=== PATIENT | female | born 1970 | race Caucasian/White ===

== ENCOUNTER 2023-07-24 09:37 | Emergency (ER) | payer OTHER, SELFPAY ==
[2023-07-24] VITALS (10 sets, daily range): BP systolic 85–148; BP diastolic 49–91
--- NOTE | 2023-07-24 09:38 | ED.GENMED ---
History of Present Illness
<Deric Fournier PA-C - Last Filed: 07/24/23 17:36>
General
Chief Complaint: Change in Mental Status
Time Seen by Provider: 07/24/23 09:38
History of Present Illness
History of Present Illness:
53 yo female w/ hx of stroke w/ R hemiparesis, seizures, HTN and HIV + presents via EMS from [facility] for evaluation of altered mental status. Per nursing facility staff the patient was noted to 'clench her jaw' and was minimally responsive
for period of time, no obvious tonic-clonic seizure activity, upon resolution of the symptoms her mental status drastically changed and she became agitated and violent. She was given 2 mg of Ativan and EMS was called. Upon arrival of EMS patient
remained agitated, attempting to hit and kick staff members. Patient was restrained forcibly by EMS in order to provide medical care and transport. Prehospital Accu-Chek was 114. Her vital signs were normal. On arrival to the emergency
department patient is calm, answers with nonsensical speech which is apparently her baseline from prior stroke. EMS notes that 2 vape cartridges were found in the patient's bed
Past History
<Deric Fournier PA-C - Last Filed: 07/24/23 17:36>
Past History
ED Past Medical History: CVA, HTN, Seizures and Other (HIV)
ED Past Surgical History: Cardiac (pacer)
Social History
Tobacco: Non-smoker
Alcohol: None
Drug: None
Living: [facility]
Review of Systems
<Deric Fournier PA-C - Last Filed: 07/24/23 17:36>
Review of Systems
Allergies reviewed?: Yes
All Other Systems: ROS reviewed and negative except as documented in HPI and ROS
Phy Exam
<Deric Fournier PA-C - Last Filed: 07/24/23 17:36>
Physical Exam
Physical Exam:
GEN: Well appearing, NAD, WDWN
HEENT: Oral mucosa moist, no scleral icterus, pupils dilated but reactive symmetrically, does not follow commands or extraocular motion
Cardiac: Regular rate
Lung: No respiratory distress, no tachypnea
MSK: No gross deformity or injuries
Skin: Good color, no pallor or jaundice, no rashes
Neuro: Alert, baseline aphasia, answers questions with 'yup', right hemiparesis, freely moves the left arm and left leg
Psych: Calm, cooperative
Course
<Deric Fournier PA-C - Last Filed: 07/24/23 17:36>
Orders/Labs/Results
Orders:
Orders
07/24/23 10:09
Complete Blood Count/With Diff Urgent
Keppra (Levetiracetam) [S] Urgent
07/24/23 10:46
Comprehensive Metabolic Panel Urgent
Lipase Urgent
Comment: ADD-ON
07/24/23 11:40
Lorazepam [Ativan] 2 mg .ROUTE .STK-MED ONE
07/24/23 11:42
Lorazepam [Ativan] 2 mg IV NOW STA
07/24/23 11:50
Straight Cath As Directed
Frequency: One time now
07/24/23 11:52
Urinalysis Reflex To Culture Urgent
Date Specimen was Collected: 07/24/23
Time Specimen was Collected: 11:49
07/24/23 12:09
CT Head W/o Iv Contrast Urgent
Comment:
Reason For Exam: altered mental status
07/24/23 15:42
Add On- LAB Urgent
Tests Added?: lipase
CT Abd/Pel (IV only)-DH only Urgent
Comment:
Reason For Exam: vomiting
Ondansetron Injectable [Zofran] 4 mg IV NOW STA
07/24/23 16:18
Lorazepam [Ativan] 1 mg IV NOW STA
Abnormal Lab Results
07/24/23 07/24/23
10:09 10:46
RBC 3.77 L 10^6/uL
(4.20-5.40)
Hct 35.5 L %
(37.0-47.0)
MCH 34.0 H pg
(27.0-31.0)
MPV 12.0 H fL
(7.4-10.4)
Chloride 111 H mmol/L
(98-107)
07/24/23 10:09
07/24/23 10:46
Vital Signs
Initial and Last Documented VS:
Initial Vital Signs
Temp Pulse Resp BP Pulse Ox
97.4 F 66 18 148/88 100
07/24/23 10:02 07/24/23 10:02 07/24/23 10:02 07/24/23 10:02 07/24/23 10:02
Last Documented Vital Signs
Temp Pulse Resp BP Pulse Ox
97.4 F 74 13 137/90 99
07/24/23 10:02 07/24/23 17:15 07/24/23 10:11 07/24/23 17:06 07/24/23 16:29
<Lydia Pittman MD - Last Filed: 07/24/23 13:13>
Orders/Labs/Results
Orders:
Orders
07/24/23 10:09
Complete Blood Count/With Diff Urgent
Keppra (Levetiracetam) [S] Urgent
07/24/23 10:46
Comprehensive Metabolic Panel Urgent
Lipase Urgent
Comment: ADD-ON
07/24/23 11:40
Lorazepam [Ativan] 2 mg .ROUTE .STK-MED ONE
07/24/23 11:42
Lorazepam [Ativan] 2 mg IV NOW STA
07/24/23 11:50
Straight Cath As Directed
Frequency: One time now
07/24/23 11:52
Urinalysis Reflex To Culture Urgent
Date Specimen was Collected: 07/24/23
Time Specimen was Collected: 11:49
07/24/23 12:09
CT Head W/o Iv Contrast Urgent
Comment:
Reason For Exam: altered mental status
07/24/23 15:42
Add On- LAB Urgent
Tests Added?: lipase
CT Abd/Pel (IV only)-DH only Urgent
Comment:
Reason For Exam: vomiting
Ondansetron Injectable [Zofran] 4 mg IV NOW STA
07/24/23 16:18
Lorazepam [Ativan] 1 mg IV NOW STA
Abnormal Lab Results
07/24/23 07/24/23
10:09 10:46
RBC 3.77 L 10^6/uL
(4.20-5.40)
Hct 35.5 L %
(37.0-47.0)
MCH 34.0 H pg
(27.0-31.0)
MPV 12.0 H fL
(7.4-10.4)
Chloride 111 H mmol/L
(98-107)
07/24/23 10:09
07/24/23 10:46
Vital Signs
Initial and Last Documented VS:
Initial Vital Signs
Temp Pulse Resp BP Pulse Ox
97.4 F 66 18 148/88 100
07/24/23 10:02 07/24/23 10:02 07/24/23 10:02 07/24/23 10:02 07/24/23 10:02
Last Documented Vital Signs
Temp Pulse Resp BP Pulse Ox
97.4 F 74 13 137/90 99
07/24/23 10:02 07/24/23 17:15 07/24/23 10:11 07/24/23 17:06 07/24/23 16:29
<Deric Fournier PA-C - Last Filed: 07/24/23 17:36>
*Critical Care Note
Total Time (30-74mins, 75-104mins- exclusive of procedures): Not Applicable
<Deric Fournier PA-C - Last Filed: 07/24/23 17:36>
Update Note
Update Note:
1431: Patient's workup was grossly unremarkable, she remains asleep and has not had any further agitation episodes. Awaiting discharge back to nursing facility. Remains possible that the initial event from this morning was triggered by a seizure,
EMS had noted they found vape cartridges in the patient's bed which could have provoked a seizure, patient is unable to indicate whether or not she had utilized any illicit substances.
1600: Patient has been essentially cooperative throughout the duration of the ER visit however at this point abruptly agitated, ambulating about the room and unable to be redirected. She did have an episode of bilious vomiting associated with this
as well. To this point I have not noted any breakthrough seizure symptoms whatsoever. Given the vomiting and the patient's inability to give appropriate history due to baseline aphasia will obtain a CT of the abdomen pelvis. She is given a
milligram of Ativan in order to facilitate remainder of workup.
1723: Patient resting comfortably, vital signs normal, awaiting CT scan read
1738: CT report unremarkable. Patient remains stable. Awaiting transport back to nursing facility
ED Attending Note
<Deric Fournier PA-C - Last Filed: 07/24/23 17:36>
-
Portions of this chart may have been created with voice recognition software.� Occasional wrong word or��sound alike� substitutions may have occurred due to the inherent limitations of voice recognition software.
<Lydia Pittman MD - Last Filed: 07/24/23 13:13>
ED Attending Note
Patient seen and examined by attending physician: Yes
I performed the substantive portion of visit, reviewed & personally made and approve the management plan that is documented in note by myself or BRIDGET.: Yes
ED Attending Note:
Patient is resting comfortably. Her abdomen is soft throughout. Her lungs are clear. She has had no fever or vomiting in the ED. There is no sign of urinary tract infection. There is no clinical sign of pneumonia. There are no significant
metabolic abnormalities.
Discharge Plan
Departure
Patient Disposition: Halfway/SNF
Date of Disposition: 07/24/23
Time of Disposition: 13:09
Discharge Problem:
Agitation
Instructions: Altered Mental Status (DC)
Prescriptions:
No Action
multivitamin Tablet
1 tab PO DAILY
acetaminophen 325 mg Tablet
650 mg PO Q6HPRN PRN (Reason: mild pain/temp>100.4)
cetirizine 10 mg Tablet
10 mg PO DAILY
hydralazine 25 mg Tablet
25 mg PO DAILYPRN PRN (Reason: sbp>160 and/or dbp>100)
Rx Instructions:
Give for sbp>160 and/or dbp>100-- do not give with other B/P meds
aspirin 81 mg Tablet,Delayed Release (Dr/Ec)
81 mg PO DAILY
baclofen 20 mg Tablet
20 mg PO TID
magnesium hydroxide [Milk of Magnesia] 400 mg/5 mL Suspension
30 ml PO DAILY PRN (Reason: if no bm x 3 days)
bisacodyl [Dulcolax (bisacodyl)] 10 mg Suppository
10 mg ID DAILYPRN PRN (Reason: if mom ineffective)
lisinopril 10 mg Tablet
10 mg PO DAILY
Hold Instructions: Hold until follow-up with your primary care doctor
Fleet Enema 19-7 gram/118 mL Enema
118 ml ID DAILY PRN (Reason: if dulcolax ineffective)
Excedrin Migraine 250-250-65 mg Tablet
2 tab PO DAILYPRN PRN (Reason: severe headache)
escitalopram oxalate [Lexapro] 10 mg Tablet
20 mg PO DAILY
omeprazole 20 mg Tablet,Delayed Release (Dr/Ec)
20 mg PO DAILY
Biktarvy 50-200-25 mg Tablet
1 tab PO DAILY
medroxyprogesterone 150 mg/mL Suspension
150 mg IM [id number]
metoprolol succinate 25 mg tablet extended release 24 hr
25 mg PO BID
lorazepam 0.5 mg tablet
0.5 mg PO [id number] PRN (Reason: increased anxiety)
levetiracetam [Keppra] 1,000 mg tablet
1,000 mg PO BID Qty: 60 0RF
cyclobenzaprine [Flexeril] 10 mg Tablet
10 mg PO BID
atorvastatin [Lipitor] 10 mg Tablet
10 mg PO DAILY
Rx Instructions:
07/24/23-called [facility] to verify dose but nurse said she was busy
clonazepam 0.5 mg Tablet
0.5 mg PO DAILYPRN MDD 5mg PRN (Reason: seizure)
lacosamide [Vimpat] 50 mg Tablet
50 mg PO BID
Nurtec ODT 75 mg Tablet,Disintegrating
75 mg PO Q48H
Referrals:
Elpidio Mathis, DO [Family Provider] -
Activity Restrictions/Additional Instructions:
CT head was negative for acute changes
Labs and urinalysis were normal
Interventions
Interventions:
*Risk Screen - Suicide Last Done: 07/24/23 09:39
*General Assessment Last Done: 07/24/23 10:02
*Neglect/Abuse Screening Last Done: 07/24/23 09:39
*ED COVID-19 Vaccine History Last Done: 07/24/23 09:39
ED- Neurological Assessment Last Done: 07/24/23 09:39
[2023-07-24 11:00] LABS: % Basophils 0.5 % (0-2); % Eosinophils 3.1 % (0-6); % Immature Granulocytes 0.3 % (0-0.5); % Lymphocytes 21.7 % (20.5-51.1); % Monocytes 5.8 % (1.7-9.3); % Neutrophils 68.6 % (42.2-75.2); Absolute Eosinophils 0.2 10^3/uL (0-0.7); Absolute Lymphocytes 1.4 10^3/uL (1.2-3.4); Absolute Monocytes 0.4 10^3/uL (0.1-0.6); Absolute Neutrophils 4.3 10^3/uL (1.4-6.5); Hematocrit 35.5 % (37.0-47.0); Hemoglobin 12.8 g/dL (12.0-16.0); Mean Corp Hgb Conc. 36.1 g/dL (33.0-37.0); Mean Corpuscular Volume 94.2 fL (81.0-99.0); Nucleated Red Blood Cells % 0 %; Platelet Count 183 10^3/uL (130-400); Red Blood Cell Count 3.77 10^6/uL (4.20-5.40); Red Cell Dist. Width 12.5 % (11.5-14.5); White Blood Cell Count 6.2 10^3/uL (4.8-10.8)
[2023-07-24 11:05] LABS: ALT (SGPT) 21 U/L (0-35); AST (SGOT) 24 U/L (14-36); Albumin 4.2 g/dl (3.5-5.0); Alkaline Phosphatase 69 U/L (38-126); Blood Urea Nitrogen 9 mg/dl (7-17); Calcium 9.1 mg/dl (8.4-10.2); Carbon Dioxide 23 mmol/L (22-30); Chloride 111 mmol/L (98-107); Glucose 95 mg/dl (70-99); Sodium 139 mmol/L (135-145); Total Bilirubin 0.6 mg/dl (0.2-1.3); Total Protein 6.7 g/dl (6.3-8.2); eGFR > 60.00
[2023-07-24] MEDS: ATIVAN 2 MG IV (11:44)
[2023-07-24 12:02] LABS: Urine Albumin Negative (Neg - Trace); Urine Bilirubin Negative (Negative); Urine Character Clear (Clear); Urine Color Yellow; Urine Glucose Negative (Negative); Urine Ketone Negative (Negative); Urine Leukocyte Negative (Negative); Urine Nitrite Negative (Negative); Urine Occult Blood Negative (Negative); Urine Urobilinogen Negative (Neg - 1+); Urine pH 6.5 (5.0-9.0)
--- NOTE | 2023-07-24 13:13 | PHANOTE ---
med rec note- called residential at [phone] but nurse did not answer my question about which Lipitor patient was on 10mg or 40mg, she stated she bring it to the pcp attention tomorrow but she said she only on one but didn't specify
[2023-07-24] MEDS: ZOFRAN 4 MG IV (15:51)
[2023-07-24 16:16] LABS: Lipase 98 U/L (23-300)
[2023-07-24] MEDS: ATIVAN 1 MG IV (16:32)
--- NOTE | 2023-07-24 18:31 | CM ---
Cm was updated by ER charge nurse that patient is being sent back to ER. CM spoke with Sneha patient's primary RN that patient mental status is an abrupt change from her baselines. As per Sneha at [facility], patient is ambulatory and is able to
shower independently. Patient can communicate and make her needs known. CM updated ED charge nurse.
[2023-07-26 14:21] LABS: Keppra (Levetiracetam) 13 ug/mL (10-40)
== END 2023-07-24 17:48 ==
LOC: EMR 09:37
PROVIDERS: Physician Assistant; EMERGENCY PHYSICIAN Emergency Medicine; FAMILY PHYSICIAN Internal Medicine
DX: R45.1 Restlessness and agitation (principal); I10 Essential (primary) hypertension; I69.351 Hemiplegia and hemiparesis following cerebral infarction affecting right dominant side
CPT/HCPCS: 99285; 96374; 96375; 96376; 70450; 74177; 80053; 80177; 81003; 83690; 85025; Q9967

== ENCOUNTER 2023-07-24 18:38 | Emergency (ER) | payer OTHER, SELFPAY ==
[2023-07-24] VITALS (7 sets, daily range): BP systolic 128–139; BP diastolic 73–89
--- NOTE | 2023-07-24 19:00 | ED.GENMED ---
History of Present Illness
General
Chief Complaint: Change in Mental Status
Source: records (ER records)
Exam Limitations: altered mental status
Time Seen by Provider: 07/24/23 18:41
Travel History
Have you had any contact with someone who has COVID-19?: Unable to Answer
Do you have any symptoms of coronavirus? Fever > 100 degrees, chills, cough, shortness of breath, sore throat, loss of taste or smell, muscle aches, or headache?: Unable to Answer
History of Present Illness
History of Present Illness:
this is a 53 year old female that is brought in by ambulance from [place]. Told by the nursing staff that patient was seen here earlier today for questionable seizure like activity. Patient has had Ativan sever times with the last being at
16:18. Patient was discharge and sent back with change in mental status. Told that her skin is also cold. Told that [facility] would not take patient back. Case Management has been involved.
Past History
Past History
ED Past Medical History: CVA, HTN, Seizures, Psychiatric (Anxiety, depression) and Other (HIV positive, Migraines, PNA, )
ED Past Surgical History: Cardiac (pacer)
Social History
Tobacco: Non-smoker
Alcohol: None
Drug: None
Living: [facility]
Review of Systems
Review of Systems
Other source history: other (ER nursing staff and Medical record from today)
Constitutional: Reports other (Skin is cold)
EENT: Reports no symptoms
Respiratory: Reports no symptoms
Cardiac: Reports no symptoms
ABD/GI: Reports no symptoms
: Reports no symptoms
Musculoskeletal: Reports no symptoms
Skin: Reports no symptoms
Neurological: Reports other (change in mental status)
Psychiatric: Reports no symptoms
Phy Exam
General Physical Exam
General Presentation: no apparent distress
General Skin: cool
General Habitus: normal
General Mental: other (Change in mental status, Mumbling)
General Hydration: dry mucous membranes
ENT Exam
ENT Exam: TM's normal, pharynx normal and neck supple
Cardiovascular Exam
Cardiovascular Exam: regular rate/rhythm, no edema and normal peripheral pulses
Pulmonary Exam
Pulmonary Exam: lungs clear, no respiratory distress, no rales, chest non tender, no crackles, no rhonchi, no wheezing and no cough
Gastrointestinal Exam
Gastrointestinal Exam: normal bowel sounds, non tender, soft, no organomegaly, no pulsatile mass and non distended
Skin Exam
Skin Exam: no rash, no petechia, pallor and other (Cool to touch)
Psychiatric Exam
Psychiatric Exam: other (Lethargic )
Course
Orders/Labs/Results
Orders:
Orders
07/24/23 18:58
Rectal Temp- Treatment ONCE
0.9% Sodium Chloride 1000 ml [Nss] 1,000 ml IV BOLUS
07/24/23 20:00
Complete Blood Count/With Diff Urgent
Comprehensive Metabolic Panel Urgent
Lactic Acid Urgent
Blood Culture Q30M
LYNNE Source: Blood/Venous
Specimen Description:
07/24/23 20:04
Fentanyl, Urine Urgent
Urine Drug Abuse Screen Urgent
Date Specimen was Collected: 07/24/23
Time Specimen was Collected: 20:00
Blood Culture Q30M
LYNNE Source: Blood/Venous
Specimen Description:
07/24/23 20:54
COVID-19 Antigen Urgent
Source: Nasal Swab
Influenza A+B Rapid Molecular Urgent
LYNNE Source: Nasal Swab
Specimen Description:
Abnormal Lab Results
07/24/23 07/24/23
20:00 20:04
RBC 3.71 L 10^6/uL
(4.20-5.40)
Hct 35.0 L %
(37.0-47.0)
MCH 32.9 H pg
(27.0-31.0)
Ur Tricyclics Screen Positive H
(Negative)
U Benzodiazepines Scrn Positive H
(Negative)
07/24/23 20:00
07/24/23 20:00
Labs unremarkable. Urine positive for Benzo's and Tricyclics. Lactic acid normal at 0.8
Negative for COVID and Influenza
Vital Signs
Initial and Last Documented VS:
Initial Vital Signs
Temp Pulse Resp BP Pulse Ox
97.5 F 76 18 139/88 99
07/24/23 18:40 07/24/23 18:40 07/24/23 18:40 07/24/23 18:40 07/24/23 18:40
Last Documented Vital Signs
Temp Pulse Resp BP Pulse Ox
99.3 F 68 10 128/88 91
07/24/23 19:25 07/24/23 22:50 07/24/23 22:50 07/24/23 22:50 07/24/23 21:15
MDM/Problems Addressed
Differential Diagnosis Includes:
change in mental status,
MDM/Problems Addressed:
This is a 53 year old female that is brought in by ambulance from [place] with change in mental status. Told that the patient skin is cold and they would not accept patient back. Nursing has spoke with case management
Patient at this time is not really following commands and is very lethargic. Will recheck labs, give IV fluids.
Patient is now awake and talking. Her lab remain normal and her lactic acid is normal. Will sent back to [place]
Chronic conditions affecting care: Other (CVA)
Acute Exacerbation and/or Progression of Chronic Illness:
NA
*Pulse Oximetry
Patient hypoxic: no
*EKG
Interpreted by ED Provider?: NA
Rate: EKG- N/A
*Critical Care Note
Total Time (30-74mins, 75-104mins- exclusive of procedures): Not Applicable
ED Attending Note
-
Portions of this chart may have been created with voice recognition software.� Occasional wrong word or��sound alike� substitutions may have occurred due to the inherent limitations of voice recognition software.
Discharge Plan
Departure
Patient Disposition: [facility]NF
Date of Disposition: 07/24/23
Time of Disposition: 21:16
Patient with high blood pressure during this ER visit?: Yes
Condition: Good
Covid-19: Not Applicable
Discharge Problem:
mental status change due to meds
Instructions: Altered Mental Status (DC), BLOOD PRESSURE
Prescriptions:
No Action
multivitamin Tablet
1 tab PO DAILY
acetaminophen 325 mg Tablet
650 mg PO Q6HPRN PRN (Reason: mild pain/temp>100.4)
cetirizine 10 mg Tablet
10 mg PO DAILY
hydralazine 25 mg Tablet
25 mg PO DAILYPRN PRN (Reason: sbp>160 and/or dbp>100)
Rx Instructions:
Give for sbp>160 and/or dbp>100-- do not give with other B/P meds
aspirin 81 mg Tablet,Delayed Release (Dr/Ec)
81 mg PO DAILY
baclofen 20 mg Tablet
20 mg PO TID
magnesium hydroxide [Milk of Magnesia] 400 mg/5 mL Suspension
30 ml PO DAILY PRN (Reason: if no bm x 3 days)
bisacodyl [Dulcolax (bisacodyl)] 10 mg Suppository
10 mg MI DAILYPRN PRN (Reason: if mom ineffective)
lisinopril 10 mg Tablet
10 mg PO DAILY
Hold Instructions: Hold until follow-up with your primary care doctor
Fleet Enema 19-7 gram/118 mL Enema
118 ml MI DAILY PRN (Reason: if dulcolax ineffective)
Excedrin Migraine 250-250-65 mg Tablet
2 tab PO DAILYPRN PRN (Reason: severe headache)
escitalopram oxalate [Lexapro] 10 mg Tablet
20 mg PO DAILY
omeprazole 20 mg Tablet,Delayed Release (Dr/Ec)
20 mg PO DAILY
Biktarvy 50-200-25 mg Tablet
1 tab PO DAILY
medroxyprogesterone 150 mg/mL Suspension
150 mg IM [id number]
metoprolol succinate 25 mg tablet extended release 24 hr
25 mg PO BID
lorazepam 0.5 mg tablet
0.5 mg PO [id number] PRN (Reason: increased anxiety)
levetiracetam [Keppra] 1,000 mg tablet
1,000 mg PO BID Qty: 60 0RF
cyclobenzaprine [Flexeril] 10 mg Tablet
10 mg PO BID
atorvastatin [Lipitor] 10 mg Tablet
PO DAILY
Rx Instructions:
07/24/23-called [facility] to verify dose but nurse said she was too busy to find out if patient on 10mg or 40mg, both are listing on paperwork
clonazepam 0.5 mg Tablet
0.5 mg PO DAILYPRN MDD 5mg PRN (Reason: seizure)
lacosamide [Vimpat] 50 mg Tablet
50 mg PO BID
Nurtec ODT 75 mg Tablet,Disintegrating
75 mg PO Q48H
Referrals:
Elpidio Mathis, [Family Provider] - Follow up in 2-3 days
Activity Restrictions/Additional Instructions:
As discussed, patient blood work was normal again. Her mental status change was most likely due to the Ativan that she had been given. Please have patient follow up with the family doctor for medication adjustment. Patient to return with any
concerns.
Interventions
Interventions:
*Risk Screen - Suicide Last Done: 07/24/23 18:40
*General Assessment Last Done: 07/24/23 18:40
*Neglect/Abuse Screening Last Done: 07/24/23 18:40
ED- Fall Risk Assessment Last Done: 07/24/23 18:40
*ED COVID-19 Vaccine History Last Done: 07/24/23 18:40
ED- Pulmonary Assessment Last Done: 07/24/23 19:30
ED-Psychological Assessment Last Done: 07/24/23 19:30
ED- Neurological Assessment Last Done: 07/24/23 20:50
ED- Cardiac Assessment Last Done: 07/24/23 19:30
[2023-07-24] MEDS: NSS 1000 IV (20:02)
[2023-07-24 20:13] LABS: % Basophils 0.6 % (0-2); % Eosinophils 3.3 % (0-6); % Immature Granulocytes 0.2 % (0-0.5); % Lymphocytes 24.8 % (20.5-51.1); % Monocytes 5.9 % (1.7-9.3); % Neutrophils 65.2 % (42.2-75.2); Absolute Eosinophils 0.2 10^3/uL (0-0.7); Absolute Lymphocytes 1.6 10^3/uL (1.2-3.4); Absolute Monocytes 0.4 10^3/uL (0.1-0.6); Absolute Neutrophils 4.3 10^3/uL (1.4-6.5); Hemoglobin 12.2 g/dL (12.0-16.0); Mean Corp Hgb Conc. 34.9 g/dL (33.0-37.0); Mean Corpuscular Hgb 32.9 pg (27.0-31.0); Mean Corpuscular Volume 94.3 fL (81.0-99.0); Mean Platelet Volume 9.6 fL (7.4-10.4); Nucleated Red Blood Cells % 0 %; Platelet Count 194 10^3/uL (130-400); Red Blood Cell Count 3.71 10^6/uL (4.20-5.40); Red Cell Dist. Width 12.5 % (11.5-14.5); White Blood Cell Count 6.6 10^3/uL (4.8-10.8)
[2023-07-24 20:25] LABS: Lactic Acid 0.8 mmol/L (0.7-2.0)
[2023-07-24 20:26] LABS: Amphetamines Negative (Negative); Barbiturates Negative (Negative); Benzodiazepines Positive (Negative); Buprenorphine Negative (Negative); Cocaine Negative (Negative); Marijuana Negative (Negative); Methadone Negative (Negative); Methamphetamines Negative (Negative); Opiates Negative (Negative); Phencyclidine Negative (Negative); Tricyclic Antidepressants Positive (Negative)
[2023-07-24 20:33] LABS: ALT (SGPT) 20 U/L (0-35); AST (SGOT) 24 U/L (14-36); Albumin 3.9 g/dl (3.5-5.0); Alkaline Phosphatase 57 U/L (38-126); Blood Urea Nitrogen 10 mg/dl (7-17); Calcium 9.3 mg/dl (8.4-10.2); Carbon Dioxide 22 mmol/L (22-30); Chloride 107 mmol/L (98-107); Glucose 89 mg/dl (70-99); Potassium 4.2 mmol/L (3.5-5.1); Sodium 139 mmol/L (135-145); Total Bilirubin 0.7 mg/dl (0.2-1.3); Total Protein 6.4 g/dl (6.3-8.2); eGFR > 60.00
[2023-07-24 20:46] LABS: Fentanyl, Urine Negative (Negative)
[2023-07-24 21:18] LABS: COVID-19 Antigen Negative (Negative)
== END 2023-07-24 23:15 ==
LOC: EMR 18:38
PROVIDERS: Clinical Nurse Specialist Family Health; EMERGENCY PHYSICIAN Student in an Organized Health Care Education/Training Program; FAMILY PHYSICIAN Internal Medicine
DX: R41.82 Altered mental status, unspecified (principal); I10 Essential (primary) hypertension
CPT/HCPCS: 99284; 96360; 80053; 80306; 80307; 83605; 85025; 87040; 87502; 87811

== ENCOUNTER 2023-08-01 21:30 | Emergency (ER) | payer OTHER, SELFPAY ==
[2023-08-01 21:31] VITALS: BP 129/86
[2023-08-01 21:33] VITALS: BP 129/86
[2023-08-01 21:45] VITALS: BP 125/81
[2023-08-01 22:00] VITALS: BP 137/91
--- NOTE | 2023-08-01 22:20 | ED.GENMED ---
History of Present Illness
General
Chief Complaint: Seizure
Source: ambulance crew and senior care
Time Seen by Provider: 08/01/23 22:10
Travel History
Have you had any contact with someone who has COVID-19?: Unable to Answer
Do you have any symptoms of coronavirus? Fever > 100 degrees, chills, cough, shortness of breath, sore throat, loss of taste or smell, muscle aches, or headache?: Unable to Answer
History of Present Illness
History of Present Illness:
Patient sent to the emergency room from [facility] for questionable seizure activity. Paramedics state that patient was conversant when they arrived. She does not speak in full sentences but does answer questions yes and no. This is her normal
baseline after having suffered a stroke in the past. While here in the emergency room the patient has participated in video calls with family. She answers in the negative when asked if she has a headache.
Past History
Past History
ED Past Medical History: CVA, HTN, Seizures, Psychiatric (Anxiety, depression) and Other (HIV positive, Migraines, PNA, )
ED Past Surgical History: Cardiac (pacer)
Social History
Tobacco: Non-smoker
Alcohol: None
Drug: None
Living: senior care
Phy Exam
Physical Exam
Physical Exam:
General: Awake, Alert, baseline aphasia. No acute distress.
Vitals: unremarkable
Head: Atraumatic
Eyes: Pupils equal, EOMI
Throat: Airway intact, no exudates
Neck: Trachea midline
Lungs: Clear and equal b/l
Heart: Regular rate, no murmurs
Abd: Soft, Nontender, No pulsatile mass
Neuro: Right-sided weakness from previous CVA.
Skin: Warm, dry, no rash
Extremities: pulses equal b/l, no edema
Course
Orders/Labs/Results
Orders:
Orders
08/01/23 21:35
Electrocardiogram (*1) Urgent
Reason for Study: QTc Monitoring
08/01/23 21:36
EKG- Treatment ONCE
08/01/23 22:42
Complete Blood Count/With Diff Urgent
Comprehensive Metabolic Panel Urgent
Abnormal Lab Results
08/01/23
22:42
RBC 3.38 L 10^6/uL
(4.20-5.40)
Hgb 11.1 L g/dL
(12.0-16.0)
Hct 32.3 L %
(37.0-47.0)
MCH 32.8 H pg
(27.0-31.0)
Chloride 113 H mmol/L
(98-107)
Total Protein 6.0 L g/dl
(6.3-8.2)
08/01/23 22:42
08/01/23 22:42
Vital Signs
Initial and Last Documented VS:
Initial Vital Signs
Temp Pulse Resp BP Pulse Ox
98.4 F 75 16 129/86 98
08/01/23 21:31 08/01/23 21:31 08/01/23 21:31 08/01/23 21:31 08/01/23 21:31
Last Documented Vital Signs
Temp Pulse Resp BP Pulse Ox
98.4 F 64 9 126/96 97
08/01/23 21:31 08/02/23 02:15 08/02/23 02:15 08/02/23 02:00 08/02/23 02:15
MDM/Problems Addressed
MDM/Problems Addressed:
Patient had reported seizure activity at the senior care. While here in the emergency room she appears to be at her baseline mental status. No seizure activity here at all. Labs are unremarkable. Patient stable for discharge back to her facility
*Critical Care Note
Total Time (30-74mins, 75-104mins- exclusive of procedures): Not Applicable
ED Attending Note
-
Portions of this chart may have been created with voice recognition software.� Occasional wrong word or��sound alike� substitutions may have occurred due to the inherent limitations of voice recognition software.
Discharge Plan
Departure
Patient Disposition: Fci/SNF
Date of Disposition: 08/01/23
Time of Disposition: 23:18
Condition: Good
Discharge Problem:
Seizure disorder
Instructions: Seizures, Adult (DC)
Prescriptions:
No Action
multivitamin Tablet
1 tab PO DAILY
acetaminophen 325 mg Tablet
650 mg PO Q6HPRN PRN (Reason: mild pain/temp>100.4)
cetirizine 10 mg Tablet
10 mg PO DAILY
hydralazine 25 mg Tablet
25 mg PO DAILYPRN PRN (Reason: sbp>160 and/or dbp>100)
Rx Instructions:
Give for sbp>160 and/or dbp>100-- do not give with other B/P meds
aspirin 81 mg Tablet,Delayed Release (Dr/Ec)
81 mg PO DAILY
baclofen 20 mg Tablet
20 mg PO TID
magnesium hydroxide [Milk of Magnesia] 400 mg/5 mL Suspension
30 ml PO DAILY PRN (Reason: if no bm x 3 days)
bisacodyl [Dulcolax (bisacodyl)] 10 mg Suppository
[address] DAILYPRN PRN (Reason: if mom ineffective)
lisinopril 10 mg Tablet
10 mg PO DAILY
Hold Instructions: Hold until follow-up with your primary care doctor
Fleet Enema 19-7 gram/118 mL Enema
[address] DAILY PRN (Reason: if dulcolax ineffective)
Excedrin Migraine 250-250-65 mg Tablet
2 tab PO DAILYPRN PRN (Reason: severe headache)
escitalopram oxalate [Lexapro] 10 mg Tablet
20 mg PO DAILY
omeprazole 20 mg Tablet,Delayed Release (Dr/Ec)
20 mg PO DAILY
Biktarvy 50-200-25 mg Tablet
1 tab PO DAILY
medroxyprogesterone 150 mg/mL Suspension
150 mg IM [id number]
metoprolol succinate 25 mg tablet extended release 24 hr
25 mg PO BID
lorazepam 0.5 mg tablet
0.5 mg PO [id number] PRN (Reason: increased anxiety)
levetiracetam [Keppra] 1,000 mg tablet
1,000 mg PO BID Qty: 60 0RF
cyclobenzaprine [Flexeril] 10 mg Tablet
10 mg PO BID
atorvastatin [Lipitor] 10 mg Tablet
PO DAILY
Rx Instructions:
07/24/23-called senior care to verify dose but nurse said she was too busy to find out if patient on 10mg or 40mg, both are listing on paperwork
clonazepam 0.5 mg Tablet
0.5 mg PO DAILYPRN MDD 5mg PRN (Reason: seizure)
lacosamide [Vimpat] 50 mg Tablet
50 mg PO BID
Nurtec ODT 75 mg Tablet,Disintegrating
75 mg PO Q48H
Referrals:
Elpidio Mathis, DO [Family Provider] -
Interventions
Interventions:
*Risk Screen - Suicide Last Done: 08/01/23 23:03
*General Assessment Last Done: 08/01/23 23:03
*Neglect/Abuse Screening Last Done: 08/01/23 23:03
ED- Fall Risk Assessment Last Done: 08/01/23 23:03
*ED COVID-19 Vaccine History Last Done: 08/02/23 02:56
*Nursing Disposition Last Done: 08/02/23 02:56
ED- Cardiac Assessment Last Done: 08/01/23 23:03
ED- Neurological Assessment Last Done: 08/01/23 23:03
ED- Pulmonary Assessment Last Done: 08/01/23 23:03
Discharge Date and Time
Discharge Date/Time: 08/02/23 02:58
[2023-08-01 22:48] LABS: % Basophils 0.5 % (0-2); % Eosinophils 4.6 % (0-6); % Immature Granulocytes 0.3 % (0-0.5); % Lymphocytes 34.7 % (20.5-51.1); % Monocytes 7.7 % (1.7-9.3); % Neutrophils 52.2 % (42.2-75.2); Absolute Eosinophils 0.3 10^3/uL (0-0.7); Absolute Monocytes 0.5 10^3/uL (0.1-0.6); Absolute Neutrophils 3.1 10^3/uL (1.4-6.5); Hematocrit 32.3 % (37.0-47.0); Hemoglobin 11.1 g/dL (12.0-16.0); Mean Corp Hgb Conc. 34.4 g/dL (33.0-37.0); Mean Corpuscular Hgb 32.8 pg (27.0-31.0); Mean Corpuscular Volume 95.6 fL (81.0-99.0); Mean Platelet Volume 9.4 fL (7.4-10.4); Nucleated Red Blood Cells % 0 %; Platelet Count 196 10^3/uL (130-400); Red Blood Cell Count 3.38 10^6/uL (4.20-5.40); Red Cell Dist. Width 12.6 % (11.5-14.5); White Blood Cell Count 5.9 10^3/uL (4.8-10.8)
[2023-08-01 23:00] VITALS: BP 139/113
[2023-08-01 23:03] LABS: ALT (SGPT) 19 U/L (0-35); AST (SGOT) 22 U/L (14-36); Albumin 3.8 g/dl (3.5-5.0); Alkaline Phosphatase 65 U/L (38-126); Blood Urea Nitrogen 11 mg/dl (7-17); Calcium 8.7 mg/dl (8.4-10.2); Carbon Dioxide 22 mmol/L (22-30); Chloride 113 mmol/L (98-107); Glucose 94 mg/dl (70-99); Sodium 139 mmol/L (135-145); Total Bilirubin 0.3 mg/dl (0.2-1.3); eGFR > 60.00
[2023-08-02] VITALS: BP 132/105
[2023-08-02 01:00] VITALS: BP 150/91
[2023-08-02 02:00] VITALS: BP 126/96
== END 2023-08-02 02:58 ==
LOC: EMR 21:30
PROVIDERS: Emergency Medicine; EMERGENCY PHYSICIAN Emergency Medicine; FAMILY PHYSICIAN Internal Medicine
DX: G40.909 Epilepsy, unspecified, not intractable, without status epilepticus (principal); Z86.73 Personal history of transient ischemic attack (TIA), and cerebral infarction without residual deficits
CPT/HCPCS: 99284; 80053; 85025; 93005

== ENCOUNTER 2023-09-28 18:35 | Observation (INO) | payer OTHER, SELFPAY ==
[2023-09-28] VITALS (14 sets, daily range): BP systolic 116–172; BP diastolic 77–152; PULSE 71–92; BMI 28.6; BMI 31.2
[2023-09-28 14:39] LABS: Urine Albumin Negative (Neg - Trace); Urine Bilirubin Negative (Negative); Urine Character Clear (Clear); Urine Color Yellow; Urine Glucose Negative (Negative); Urine Ketone Negative (Negative); Urine Leukocyte Trace (Negative); Urine Nitrite Negative (Negative); Urine Occult Blood Negative (Negative); Urine Specific Gravity 1.005 (<1.030); Urine Urobilinogen Negative (Neg - 1+)
[2023-09-28 14:45] LABS: COVID-19 Antigen Negative (Negative)
[2023-09-28 15:00] LABS: Urine Red Blood Cell None Seen /HPF (0-2); Urine White Cell None Seen /HPF (0-5)
--- NOTE | 2023-09-28 15:36 | ED.GENMED ---
History of Present Illness
General
Chief Complaint: Fall
Source: patient
Time Seen by Provider: 09/28/23 12:23
Travel History
Have you had any contact with someone who has COVID-19?: No
Do you have any symptoms of coronavirus? Fever > 100 degrees, chills, cough, shortness of breath, sore throat, loss of taste or smell, muscle aches, or headache?: No
History of Present Illness
History of Present Illness:
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
morning. Patient has expressive aphasia and is unable to provide history for this reason. Spoke with the staff at [facility] directly to obtain collateral history: They report that at baseline patient is alert and although she has aphasia she is
rather independent and is able to ambulate on her own, eating around and even walk outside ad merary to smoke. She says that patient suffered an unwitnessed fall this morning and initially declined transport to the emergency room. She had a second
fall that was witnessed by staff during which she had a transient loss of consciousness. She agreed to go to the emergency room after this episode. Patient seems to indicate that she has some pain in her right knee during assessment. Rest of
history is somewhat limited due to her aphasia. She is on aspirin but no other blood thinners on review of her medication list.
Past History
Past History
ED Past Medical History: CVA, HTN, Seizures, Psychiatric (Anxiety, depression) and Other (HIV positive, Migraines, PNA, )
ED Past Surgical History: Cardiac (pacer)
Social History
Tobacco: Non-smoker
Alcohol: None
Drug: None
Living: [facility]
Review of Systems
Review of Systems
Unable to obtain full review of systems at this time due to: non-verbal
All Other Systems: Not applicable
Phy Exam
Physical Exam
Physical Exam:
General: Awake, alert, gestures but is aphasic; no acute distress
Head: Normocephalic, atraumatic
Eyes: Conjunctiva normal, sclera anicteric
Throat: Airway intact, handling secretions
Neck: Trachea midline, supple without meningismus
Lungs: Clear to auscultation bilaterally, no wheezing, rales, rhonchi
Heart: Regular rate and rhythm, no murmurs, gallops, or rubs
Abd: Soft, non distended, no apparent tenderness
Back: No signs of trauma to the back or flank
Neuro: Patient is awake and alert but aphasic, follows commands; she is generally weak but does not have any focal weakness
Extremities: No abrasions, lacerations, ecchymosis; she does have some tenderness to palpation right medial knee and has pain with passive range of motion in the knee; good pulses in all extremities
Scores
Heart Failure Risk
Heart Failure Risk Score: Not Applicable
Heart Score for Chest Pain Patients
STEMI patient?: Not applicable
Withdrawal Assessment of Alcohol
Withdrawal Assessment Completed?: Not applicable
Course
Orders/Labs/Results
Orders:
Orders
09/28/23 13:00
CT Cervical Spine W/o Iv Contr Urgent
Comment:
Reason For Exam: unwitnessed fall, headache
CT Head W/o Iv Contrast Urgent
Comment:
Reason For Exam: unwitnessed fall, headache
CR Knee- Right 4 Or More View* Urgent
Comment:
Reason For Exam: right knee pain s/p fall
09/28/23 13:01
Electrocardiogram (*1) Urgent
Reason for Study: Fatigue / Weakness
EKG- Treatment ONCE
CR Hip - RT w/wo Pel 2-3 Vw* Urgent
Comment:
Reason For Exam: right hip pain s/p fall
Include a pelvis x-ray?: Yes
09/28/23 13:02
Interrogate Pacemaker- Treatment ONCE
09/28/23 14:30
COVID-19 Antigen Urgent
Source: Nasal Swab
Complete Blood Count/With Diff Urgent
Comprehensive Metabolic Panel Urgent
Creatine Phosphokinase Urgent
Comment: ADD ON
Magnesium Urgent
Urinalysis Reflex To Culture Urgent
Date Specimen was Collected: 09/28/23
Time Specimen was Collected: 14:24
Urine Microscopic Reflex Cult Urgent
Influenza A+B Rapid Molecular Urgent
LYNNE Source: Nasal Swab
Specimen Description:
09/28/23 15:06
Add On- LAB Urgent
Tests Added?: CPK
09/28/23 15:46
Case Management Consult ONCE
Case Management Consult: Discharge Planning
PT Consult [Pt Eval And Treat] Urgent
Activity Level: Ambulate
Abnormal Lab Results
09/28/23
14:30
RBC 3.53 L 10^6/uL
(4.20-5.40)
Hgb 11.7 L g/dL
(12.0-16.0)
Hct 32.6 L %
(37.0-47.0)
MCH 33.1 H pg
(27.0-31.0)
Chloride 109 H mmol/L
(98-107)
Creatine Kinase 212 H U/L
(30-135)
Leukocyte Esterase Rfl Trace A
(Negative)
09/28/23 14:30
09/28/23 14:30
Vital Signs
Initial and Last Documented VS:
Initial Vital Signs
BP
140/81
09/28/23 12:13
Last Documented Vital Signs
Temp Pulse Resp BP Pulse Ox
37.3 C 64 10 134/89 93
09/28/23 12:17 09/28/23 15:00 09/28/23 15:00 09/28/23 15:00 09/28/23 14:30
MDM/Problems Addressed
Differential Diagnosis Includes:
Syncope/loss of consciousness: Dysrhythmia, valvular issue, anemia, electrolyte derangement, vasovagal episode, orthostatic/postural syncope, seizure
Knee pain: Fracture, contusion, sprain
MDM/Problems Addressed:
53-year-old female with history as above presents after 2 falls the second of which at least was associated with syncope. Vital signs normal. Exam as above. Plan to check labs including a CBC and a CMP, CPK. Will check urinalysis. Swab for
COVID and flu. Check x-ray of the hip and knee on the right. Check CT head and cervical spine. EKG reviewed shows paced rhythm. Will monitor on telemetry. Will interrogate device. Reassess after the above.
Imaging reviewed: CT head and cervical spine negative for any emergent pathology, only modest parietal scalp hematoma. X-ray of the hip negative for any acute fracture, x-ray of the knee shows likely acute avulsion fracture of the distal femur.
Awaiting results of labs.
Reviewed report with [facility] rep: battery life acceptable, leads functional with good capture, no events.
Labs reviewed: CBC and CMP unremarkable. CPK marginally elevated. Urinalysis negative for infection. At this point no clear indication for admission regarding her syncope�vitals have been stable throughout ED visit, reassuring labs and EKG and
her device interrogation showed no significant events. She does however have significant right knee pain and is having trouble bearing weight. She does have a minor acute fracture. Physical therapy evaluated patient she will need a hemiwalker to
help ambulate�typically walks without assistance per staff at [facility]. I spoke with case management unfortunately because of her increased care requirement [place] requires additional insurance authorization before she can return back.
Anticipate that this will take minimum 24 hours to obtain. Will admit for observation. Discussed with hospitalist for admission.
Chronic conditions affecting care:
Stroke
*Radiology
Radiology exam reviewed: preliminary read by ED provider and radiology read reviewed
*Pulse Oximetry
Patient hypoxic: no
*EKG
Interpreted by ED Provider?: Yes
Heart Rate: 61
Rate: normal
Rhythm: other (Atrial paced)
[place]: normal axis
Interval: normal interval
QRS Pattern: normal QRS
Ischemia: no ischemia
*Critical Care Note
Total Time (30-74mins, 75-104mins- exclusive of procedures): Not Applicable
Data Reviewed
Review of Other/Old Records Reveals: Labs and Records
Source: patient, records, ambulance crew and [facility]
Patient Management
Social determinants of health affecting care: Living situation
Discussion with other providers: Hospitalist (Discussed with hospitalist), prison staff (Spoke directly with [facility] staff) and Other (Discussed with case management, discussed with physical therapist)
Escalation/DeEscalation of care consider admission/obs:
Admission indicated
ED Attending Note
-
Portions of this chart may have been created with voice recognition software.� Occasional wrong word or��sound alike� substitutions may have occurred due to the inherent limitations of voice recognition software.
Discharge Plan
Departure
Patient Disposition: Admit
Date of Disposition: 09/28/23
Time of Disposition: 16:37
Admit to doctor: Kun
Presentation/result/management discussed w/ accepting MD/DO: Hospitalist
Discharge Problem:
Knee injury, Syncope
Prescriptions:
No Action
multivitamin Tablet
1 tab PO DAILY
acetaminophen 325 mg Tablet
650 mg PO Q6HPRN PRN (Reason: mild pain/temp>100.4)
cetirizine 10 mg Tablet
10 mg PO DAILY
hydralazine 25 mg Tablet
25 mg PO DAILYPRN PRN (Reason: sbp>160 and/or dbp>100)
Rx Instructions:
Give for sbp>160 and/or dbp>100-- do not give with other B/P meds
aspirin 81 mg Tablet,Delayed Release (Dr/Ec)
81 mg PO DAILY
baclofen 20 mg Tablet
20 mg PO TID
magnesium hydroxide [Milk of Magnesia] 400 mg/5 mL Suspension
30 ml PO DAILY PRN (Reason: if no bm x 3 days)
bisacodyl [Dulcolax (bisacodyl)] 10 mg Suppository
10 mg [place] DAILYPRN PRN (Reason: if mom ineffective)
lisinopril 10 mg Tablet
10 mg PO DAILY
Hold Instructions: Hold until follow-up with your primary care doctor
Fleet Enema 19-7 gram/118 mL Enema
118 ml [place] DAILY PRN (Reason: if dulcolax ineffective)
Excedrin Migraine 250-250-65 mg Tablet
2 tab PO DAILYPRN PRN (Reason: severe headache)
escitalopram oxalate [Lexapro] 10 mg Tablet
20 mg PO DAILY
omeprazole 20 mg Tablet,Delayed Release (Dr/Ec)
20 mg PO DAILY
Biktarvy 50-200-25 mg Tablet
1 tab PO DAILY
medroxyprogesterone 150 mg/mL Suspension
150 mg IM [id number]
metoprolol succinate 25 mg tablet extended release 24 hr
25 mg PO BID
lorazepam 0.5 mg tablet
0.5 mg PO [id number] PRN (Reason: increased anxiety)
levetiracetam [Keppra] 1,000 mg tablet
1,000 mg PO BID Qty: 60 0RF
cyclobenzaprine [Flexeril] 10 mg Tablet
10 mg PO BID
atorvastatin [Lipitor] 10 mg Tablet
PO DAILY
Rx Instructions:
07/24/23-called [facility] to verify dose but nurse said she was too busy to find out if patient on 10mg or 40mg, both are listing on paperwork
clonazepam 0.5 mg Tablet
0.5 mg PO DAILYPRN MDD 5mg PRN (Reason: seizure)
lacosamide [Vimpat] 50 mg Tablet
50 mg PO BID
Nurtec ODT 75 mg Tablet,Disintegrating
75 mg PO Q48H
Referrals:
Elpidio Mathis, DO [Family Provider] -
Interventions
Interventions:
*Risk Screen - Suicide Last Done: 09/28/23 12:50
*General Assessment Last Done: 09/28/23 12:50
*Neglect/Abuse Screening Last Done: 09/28/23 12:50
*ED COVID-19 Vaccine History Last Done: 09/28/23 12:53
ED-Musculoskeletal Assessment Last Done: 09/28/23 12:55
ED- Neurological Assessment Last Done: 09/28/23 12:57
ED-Skin Assessment Last Done: 09/28/23 12:54
Discharge Date and Time
Print Language: KAZAKH
[2023-09-28 16:06] LABS: % Basophils 0.6 % (0-2); % Eosinophils 4.5 % (0-6); % Immature Granulocytes 0.2 % (0-0.5); % Neutrophils 51.7 % (42.2-75.2); Absolute Eosinophils 0.2 10^3/uL (0-0.7); Absolute Lymphocytes 1.8 10^3/uL (1.2-3.4); Absolute Monocytes 0.3 10^3/uL (0.1-0.6); Absolute Neutrophils 2.5 10^3/uL (1.4-6.5); Hematocrit 32.6 % (37.0-47.0); Hemoglobin 11.7 g/dL (12.0-16.0); Mean Corp Hgb Conc. 35.9 g/dL (33.0-37.0); Mean Corpuscular Hgb 33.1 pg (27.0-31.0); Mean Corpuscular Volume 92.4 fL (81.0-99.0); Nucleated Red Blood Cells % 0 %; Red Blood Cell Count 3.53 10^6/uL (4.20-5.40); Red Cell Dist. Width 11.9 % (11.5-14.5); White Blood Cell Count 4.8 10^3/uL (4.8-10.8)
[2023-09-28 16:22] LABS: ALT (SGPT) 24 U/L (0-35); AST (SGOT) 29 U/L (14-36); Albumin 4.5 g/dl (3.5-5.0); Alkaline Phosphatase 67 U/L (38-126); Blood Urea Nitrogen 10 mg/dl (7-17); Calcium 9.5 mg/dl (8.4-10.2); Carbon Dioxide 22 mmol/L (22-30); Chloride 109 mmol/L (98-107); Creatine Phosphokinase 212 U/L (30-135); Estimated Creatinine Clearance 92 ml/min; Glucose 87 mg/dl (70-99); Magnesium 1.9 mg/dl (1.6-2.3); Sodium 139 mmol/L (135-145); Total Bilirubin 0.4 mg/dl (0.2-1.3); Total Protein 7.1 g/dl (6.3-8.2); eGFR > 60.00
[2023-09-28 16:24] LABS: Mean Platelet Volume 9.8 fL (7.4-10.4); Platelet Count 205 10^3/uL (130-400)
--- NOTE | 2023-09-28 16:43 | CM ---
Patient seen at bedside, patient from [facility]; LTC patient has been there since 2021. Patient is aphasic, patient with new skilled need. CM called to [employer] system administrator, SNF DON and admissions, unable to reach anyone VM left. Patient has [employer] and
will need updated auth for Skilled need. Patient updated and PT indicated that patient would need hemiwalker and skilled care at this time. CM updated physician and will send referral via all scripts. CM will continue to follow for discharge
planning needs.
PLan; SNF: return to [facility]
--- NOTE | 2023-09-28 17:25 | HPS.HSE ---
Family Physician
-
Family Physician: Elpidio Mathis, DO
Chief Complaint
-
Fall
History of Present Illness
Patient 53 years old female history hypertension, seizures, stroke with residual left hemiparesis and aphasia, pacemaker, hypertension, HIV, from assisted living who came into the hospital after a fall. Patient suffered an unwitnessed fall this
morning and initially declined to come to the hospital for the second fall witnessed by staff triggered transferred to the hospital and she had transient loss of consciousness reported. She had complained of some pain in the right knee. Patient
denies any chest pain or shortness of breath when she is noting her head. On the same token denies fevers or chills abdominal pain or any new symptoms. She is not very enthusiastic of staying here in the hospital. In the ED, labs unremarkable
aside from mild anemia and CT scan of the head no acute endocrine abnormality but some scalp hematoma of 9 mm, hip x-ray no fractures, x-ray of the knee acute versus old avulsion fracture at the medial supraclavicular area with mild displacement.
She was referred to hospitalist for further evaluation.
Medical History
Past Medical History
Past Medical History: Reports Other (Hypertension, CVA, seizures, depression anxiety, HIV, migraines.)
Past Surgical History: Reports Other (Pacemaker)
Social History
Tobacco: Non-smoker
Alcohol: None
Drug: None
Family History
Family History: Not pertinent
Allergies / Home Medications
Allergies reflects when Allergies were last updated in [employer].
Home Medications with original date entered in [employer]
Allergy/Medication List:
Allergies
Allergy/AdvReac Type Severity Reaction Status Date / Time
No Known Allergies Allergy Verified 04/01/23 10:16
Home Medications
acetaminophen 325 mg tablet 650 mg PO Q6HPRN PRN mild pain/temp>100.4 06/12/22
aspirin 81 mg tablet,delayed release 81 mg PO DAILY Blood clot prevention/tx 06/12/22
jduzhyk-clotmmwlcqztg-bovltwkk 250 mg-250 mg-65 mg tablet (Excedrin Migraine) 2 tab PO DAILYPRN PRN severe headache 06/12/22
baclofen 20 mg tablet 20 mg PO TID Muscle spasms 06/12/22
bictegravir 50 mg-emtricitabine 200 mg-tenofovir alafenam 25 mg tablet (Biktarvy) 1 tab PO DAILY HIV 06/12/22
bisacodyl 10 mg rectal suppository (Dulcolax (bisacodyl)) 10 mg [place] DAILYPRN PRN if mom ineffective 06/12/22
cetirizine 10 mg tablet 10 mg PO DAILY Allergies 06/12/22
escitalopram oxalate 10 mg tablet (Lexapro) 20 mg PO DAILY Depression 06/12/22
hydralazine 25 mg tablet 25 mg PO DAILYPRN PRN sbp>160 and/or dbp>100 06/12/22
lisinopril 10 mg tablet 10 mg PO DAILY Blood pressure 06/12/22
magnesium hydroxide 400 mg/5 mL oral suspension (Milk of Magnesia) 30 ml PO DAILY PRN if no bm x 3 days 06/12/22
multivitamin 1 tab PO DAILY Supplement 06/12/22
omeprazole 20 mg tablet,delayed release 20 mg PO DAILY Gastrointestinal issue 06/12/22
sodium phosphates 19 gram-7 gram/118 mL enema (Fleet Enema) 118 ml [place] DAILY PRN if dulcolax ineffective 06/12/22
medroxyprogesterone 150 mg/mL intramuscular suspension 150 mg IM [id number] Hormonal Agent 10/18/22
metoprolol succinate 25 mg tablet,extended release 24 hr 25 mg PO BID Blood pressure 04/01/23
levetiracetam 1,000 mg tablet (Keppra) 1,000 mg PO BID #60 tabs 04/03/23
lorazepam 0.5 mg tablet 0.5 mg PO [id number] PRN increased anxiety 04/03/23
atorvastatin 10 mg tablet (Lipitor) 10 mg PO QPM 07/24/23
cyclobenzaprine 10 mg tablet 10 mg PO BID 07/24/23
rimegepant 75 mg disintegrating tablet (Nurtec ODT) 75 mg PO Q48H 07/24/23
atorvastatin 40 mg tablet 40 mg PO QPM 09/28/23
clonazepam 0.5 mg disintegrating tablet 0.5 mg PO PRN PRN seizure 09/28/23
clonazepam 2 mg disintegrating tablet 5 mg PO PRN PRN seizure 09/28/23
gabapentin 300 mg capsule 300 mg PO BID 09/28/23
lacosamide 150 mg tablet 150 mg PO BID 09/28/23
prochlorperazine maleate 10 mg tablet 10 mg PO Q1H PRN headache 09/28/23
Review of Systems
-
Unable to obtain full review of systems at this time due to: Patient Non-verbal
Physical Exam
Vital Signs
Vital Signs
Temp Pulse Resp BP Pulse Ox
99.2 F 62 9 147/99 99
09/28/23 12:17 09/28/23 17:15 09/28/23 16:15 09/28/23 16:33 09/28/23 16:15
Physical exam:
General: Acutely ill
HEENT: Normocephalic, Atraumatic and Moist Mucous Membranes
Respiratory: Clear to Auscultation; Negative Wheezes, Rales or Rhonchi
Cardiac: Regular Rhythm and S1/S2
GI: Soft, Nontender and Nondistended
Musculoskeletal: Tender right knee area. No Clubbing, No Cyanosis and No Edema
Neuro: Awake, Alert and Oriented. Aphasia. Right dense hemiparesis present.
Psych: Calm
Physical Exam
General: Other
Laboratory Results
-
09/28/23 14:30
09/28/23 14:30
Laboratory Results
Total Bilirubin 0.4 mg/dl (0.2-1.3) 09/28/23 14:30
AST 29 U/L (14-36) 09/28/23 14:30
ALT 24 U/L (0-35) 09/28/23 14:30
Alkaline Phosphatase 67 U/L (38-126) 09/28/23 14:30
Impression/Plan
-
IMPRESSION:
Patient 53 years old female multiple comorbidities came to the hospital after a fall. Will keep her on observation in the hospital.
Impression:
Fall versus syncope
Right knee avulsion fracture
Right parietal scalp hematoma
Anemia
Conditions prior to presentation:
CVA with right hemiparesis and aphasia
Seizures
Depression and anxiety
Migraines
HIV
Pacemaker
PLAN:
Check orthostatics
Cardiac monitoring
Influenza and SARS-CoV-2 negative
Pain control
Ortho evaluation (Kermit texted orthopedic today)
PT OT eval
Case management for discharge disposition, likely skilled rehab
We do not have accurate list of medications--> will restart once we have an accurate list.
Lovenox SQ for DVT prophylaxis
CODE STATUS as per prior records she is DNR but states full code today so we will clarified and update.
Will give further recommendations based on her clinical course
--- NOTE | 2023-09-28 18:52 | CON.ORTHO ---
Consultation
-
Date/Time Consultation Requested: 545 09/28/2023
Date/Time Consultation Performed: 645 09/28/2023
Requesting Provider: Farida
Performing Provider: Romeo
Reason for Consultation: Right knee pain
Consultation - Orthopedics
History
HPI: 53-year-old female history of HIV seizures stroke with residual aphasia and weakness. She presented from her assisted living facility reportedly after several falls 1 of which was witnessed. She was reportedly complaining of right knee pain.
She was admitted to the hospital service for amatory dysfunction and potential placement. Orthopedics was consulted for evaluation of right knee. I did see the patient emergency department. She does have aphasia and has difficulty answering
questions. She does respond to yes or no questions however. She is complaining of pain medial aspect of the right knee. She does report having weakness on the right side both upper and lower extremity from her stroke. Remainder of history is
taken from chart. She does reportedly ambulate
Allergies / Home Medications
Past medical history: Hypertension, pacemaker, HIV, seizures, CVA
Past surgical history: Pacemaker
Social history: Non-smoker, lives at skilled nursing
MSK: Present
Allergy/AdvReac Type Severity Reaction Status Date / Time
No Known Allergies Allergy Verified 04/01/23 10:16
�Medication �Instructions �Recorded
acetaminophen 325 mg tablet 650 mg PO Q6HPRN PRN mild 06/12/22
pain/temp>100.4
aspirin 81 mg tablet,delayed 81 mg PO DAILY Blood clot 06/12/22
release prevention/tx
mjcpjph-ybhglsyrdtddw-dqjdhraw 250 2 tab PO DAILYPRN PRN severe 06/12/22
mg-250 mg-65 mg tablet (Excedrin headache
Migraine)
baclofen 20 mg tablet 20 mg PO TID Muscle spasms 06/12/22
bictegravir 50 mg-emtricitabine 1 tab PO DAILY HIV 06/12/22
200 mg-tenofovir alafenam 25 mg
tablet (Biktarvy)
bisacodyl 10 mg rectal suppository 10 mg NV DAILYPRN PRN if mom 06/12/22
(Dulcolax (bisacodyl)) ineffective
cetirizine 10 mg tablet 10 mg PO DAILY Allergies 06/12/22
escitalopram oxalate 10 mg tablet 20 mg PO DAILY Depression 06/12/22
(Lexapro)
hydralazine 25 mg tablet 25 mg PO DAILYPRN PRN sbp>160 06/12/22
and/or dbp>100
lisinopril 10 mg tablet 10 mg PO DAILY Blood pressure 06/12/22
magnesium hydroxide 400 mg/5 mL 30 ml PO DAILY PRN if no bm x 3 06/12/22
oral suspension (Milk of Magnesia) days
multivitamin 1 tab PO DAILY Supplement 06/12/22
omeprazole 20 mg tablet,delayed 20 mg PO DAILY Gastrointestinal 06/12/22
release issue
sodium phosphates 19 gram-7 118 ml NV DAILY PRN if dulcolax 06/12/22
gram/118 mL enema (Fleet Enema) ineffective
medroxyprogesterone 150 mg/mL 150 mg IM [id number] Hormonal Agent 10/18/22
intramuscular suspension
metoprolol succinate 25 mg 25 mg PO BID Blood pressure 04/01/23
tablet,extended release 24 hr
levetiracetam 1,000 mg tablet 1,000 mg PO BID #60 tabs 04/03/23
(Keppra)
lorazepam 0.5 mg tablet 0.5 mg PO [id number] PRN increased 04/03/23
anxiety
atorvastatin 10 mg tablet (Lipitor) 10 mg PO QPM 07/24/23
cyclobenzaprine 10 mg tablet 10 mg PO BID 07/24/23
rimegepant 75 mg disintegrating 75 mg PO Q48H 07/24/23
tablet (Nurtec ODT)
atorvastatin 40 mg tablet 40 mg PO QPM 09/28/23
clonazepam 0.5 mg disintegrating 0.5 mg PO PRN PRN seizure 09/28/23
tablet
clonazepam 2 mg disintegrating 5 mg PO PRN PRN seizure 09/28/23
tablet
gabapentin 300 mg capsule 300 mg PO BID 09/28/23
lacosamide 150 mg tablet 150 mg PO BID 09/28/23
prochlorperazine maleate 10 mg 10 mg PO Q1H PRN headache 09/28/23
tablet
Vital Signs / Lab Results
Temp Pulse Resp BP Pulse Ox
99.2 F 71 9 116/77 98
09/28/23 12:17 09/28/23 18:30 09/28/23 16:15 09/28/23 18:14 09/28/23 18:30
09/28/23 14:30
09/28/23 14:30
10 point review systems reviewed and negative unless otherwise stated
General: In no acute distress, able to respond to yes/no questions but otherwise unable to engage in meaningful history taking
Musculoskeletal right lower extremity
Skin intact, no erythema, small superficial abrasion over knee
Is no palpable knee effusion
She does attempt palpation medial femoral condyle. MCL
No discrete dislocation of the medial or lateral joint line
There is reproducible pain with valgus stress test of the knee however there is no instability noted with examination
There is some guarding with examination of knee
Patient is able to weakly plantarflex and dorsiflex ankle
Weakness with resisted hip flexion and knee extension compared to contralateral extremity
Distal extremity warm and pink
Diagnostic studies
X-rays of right knee taken today and evaluated by myself. There is evidence of avulsion adjacent to the medial femoral condyle. This does appear somewhat well-corticated and radiographically does look to be potentially chronic MCL injury
Assessment / Plan
53-year-old female history of stroke with resultant aphasia right-sided weakness as well as HIV status post fall with right knee pain. She does have radiographic evidence of avulsion medial femoral condyle consistent with MCL injury.
Radiographically does not appear to be acute however this does correlate with her clinical examination. Plan to treat this as an acute injury. Would recommend weightbearing the patient's tolerance in the right lower extremity. Would recommend
obtaining a small hinged knee brace for additional support and to allow patient to freely range the knee. Would not recommend any surgical intervention. Not recommend any acute intervention at this time. Will plan to proceed with conservative
treatment. Recommend mobilization with physical therapy. She can follow-up in the office in about 3 weeks for repeat evaluation. This was explained to the patient she did nod affirmatively to this plan
[2023-09-28] MEDS: TYLENOL 650 MG PO (18:53)
--- NOTE | 2023-09-28 20:40 | PTCARENOTE ---
Pt arrived from ED via stretcher and ambulated to bed. Pt was very agitated, angry, and physically abusive to staff in an attempt to leave. RN was able to use therapeutic communication to calm patient and was agreeable to stay the night. Pt is
oriented to room, VSS, complaining of R knee pain from the fall w/ local erythema and +1 swelling-unable to rate pain. RN given Toradol. Pt is resting comfortably w/ call tidwell within reach.
[2023-09-28] MEDS: TORADOL 15 MG IV (22:53)
[2023-09-29 03:38] VITALS: BP 142/82
[2023-09-29 07:30] VITALS: BP 137/86
[2023-09-29 07:58] LABS: Hematocrit 35.5 % (37.0-47.0); Hemoglobin 12.1 g/dL (12.0-16.0); Mean Corp Hgb Conc. 34.1 g/dL (33.0-37.0); Mean Corpuscular Hgb 32.6 pg (27.0-31.0); Mean Corpuscular Volume 95.7 fL (81.0-99.0); Mean Platelet Volume 10.1 fL (7.4-10.4); Platelet Count 214 10^3/uL (130-400); Red Blood Cell Count 3.71 10^6/uL (4.20-5.40); Red Cell Dist. Width 11.7 % (11.5-14.5); White Blood Cell Count 5.9 10^3/uL (4.8-10.8)
[2023-09-29 08:25] LABS: Blood Urea Nitrogen 15 mg/dl (7-17); Calcium 9.2 mg/dl (8.4-10.2); Carbon Dioxide 21 mmol/L (22-30); Chloride 109 mmol/L (98-107); Estimated Creatinine Clearance 71 ml/min; Glucose 94 mg/dl (70-99); Potassium 4.5 mmol/L (3.5-5.1); Sodium 137 mmol/L (135-145); eGFR > 60.00
--- NOTE | 2023-09-29 08:51 | W.PN.HOSP.TC ---
Today's Communication/Plan
-
Continue current management. Discharge planning in progress.
Assessment / Plan
Assessment / Plan
Physical exam:
General: Acutely ill
HEENT: Normocephalic, Atraumatic and Moist Mucous Membranes
Respiratory: Clear to Auscultation; Negative Wheezes, Rales or Rhonchi
Cardiac: Regular Rhythm and S1/S2
GI: Soft, Nontender and Nondistended
Musculoskeletal: Tender right knee area. No Clubbing, No Cyanosis and No Edema
Neuro: Awake, Alert and Oriented. Aphasia. Right dense hemiparesis present.
Psych: Calm
A/P:
Impression:
Fall versus syncope
Right knee avulsion fracture
Right parietal scalp hematoma
Anemia
Conditions prior to presentation:
CVA with right hemiparesis and aphasia
Seizures
Depression and anxiety
Migraines
HIV
Pacemaker
PLAN:
Check orthostatics
Cardiac monitoring
Influenza and SARS-CoV-2 negative
Pain control
Ortho consult appreciated-->Ortho recommends weightbearing as tolerated on right lower extremity and recommended a small hinged knee brace. No surgical intervention. Recommended PT. Also recommended follow-up in 3 weeks for repeat evaluation.
PT OT eval
Case management for discharge disposition, likely skilled rehab
Restarted most of her medications today but still not entirely clear if accurate
Lovenox SQ for DVT prophylaxis
Patient medically cleared to go back to her facility today as long as she is accepted.
Anticipated Discharge: Today
Subjective/Interval History
-
Date of Service: September 29, 2023
Patient doing well. No orthostatic changes. She wants to go back to her facility.
Objective Data
-
Labs:
Laboratory Results
09/29/23 09/29/23
07:06 07:07
WBC 5.9
Hgb 12.1
Hct 35.5 L
Plt Count 214
Sodium 137
Potassium 4.5
Chloride 109 H
Carbon Dioxide 21 L
BUN 15
Creatinine 0.9
Glucose 94
Calcium 9.2
Vital Signs:
Vital Signs
Temp Pulse Resp BP Pulse Ox
98.6 F 67 18 142/82 97
09/29/23 03:38 09/29/23 03:38 09/29/23 03:38 09/29/23 03:38 09/29/23 03:38
I&O
09/28/23 09/29/23 09/30/23
06:59 06:59 06:59
Intake Total 0 / 0
Balance 0 / 0
[2023-09-29] MEDS: KEPPRA 1000 MG PO (09:28)
[2023-09-29] MEDS: LIORESAL 20 MG PO (09:28)
[2023-09-29] MEDS: PROTONIX 40 MG PO (09:28)
[2023-09-29] MEDS: FLEXERIL 10 MG PO (09:28)
[2023-09-29] MEDS: NEURONTIN 300 MG PO (09:29)
[2023-09-29] MEDS: LEXAPRO 20 MG PO (09:29)
[2023-09-29] MEDS: VIMPAT 150 MG PO (09:29)
[2023-09-29] MEDS: TOPROL XL 25 MG PO (09:30)
[2023-09-29] MEDS: ASPIR LOW (ENTERIC COATED) 81 MG PO (09:30)
[2023-09-29] MEDS: BIKTARVY 50-200-25 MG TABLET 1 TABLET PO (09:30)
[2023-09-29] MEDS: THERAGRAN 1 TABLET PO (09:30)
[2023-09-29] MEDS: ATIVAN 0.5 MG PO (09:30)
[2023-09-29] MEDS: ZYRTEC 10 MG PO (09:31)
[2023-09-29] MEDS: TYLENOL 650 MG PO (09:31)
[2023-09-29] MEDS: ZESTRIL 10 MG PO (09:32)
[2023-09-29] MEDS: TORADOL 15 MG IV (09:37)
[2023-09-29 11:15] VITALS: BP 139/93; PULSE 81; O2SAT 97
[2023-09-29 12:45] VITALS: BP 135/87
--- NOTE | 2023-09-29 13:26 | CM ---
Addendum entered by Jonna Nieves 09/29/23 15:53:
CM left message to Guardian with update of time of transportation and requesting email for OBS form.
Addendum entered by Jonna Nieves 09/29/23 14:10:
Transport scheduled for 4:30 p.m. Katarina at [facility] updated.
[facility]
Report: [phone]
Fax: [phone]
Original Note:
CM spoke with Katarina from [facility], able to accept LTC for SNF with auth pending. CM spoke with insurance, auth has been approved 09/28/-10/27, next review 10/28 to [phone], auth #[id number]. CM spoke with patients guardian to provide update. Patient
will need ambulance transport. CM will continue to follow for discharge planning needs.
Plan; return to [facility], awaiting transport time.
--- NOTE | 2023-09-29 13:44 | W.DCSUMMARY ---
Discharge Summary
Discharge Data
Date of Admission: 09/28/23
Date of Discharge: 09/29/23
-
Pending Results: No
Hospital Course
Patient 53 years old female history of hypertension, seizures, stroke with right residual hemiparesis and aphasia presented to the hospital multiple falls. Patient remained on cardiac monitoring and no cardiac arrhythmias identified. Her
orthostatic was checked and no abnormalities either. Her labs were unremarkable. Patient did have an x-ray that revealed right knee medial femoral condyle fracture with possible MCL injury and orthopedic was consulted. Orthopedic recommended
weightbearing as tolerated on right lower extremity and a small hinged knee brace and continue PT and no surgical intervention required. Ortho also recommended follow-up in the office in about 3 weeks for repeat evaluation. Otherwise, patient is
hemodynamically stable she is back to her baseline. She is medically cleared to be discharged back to her facility.
Discharge Plan
-
Patient Disposition: Prison/SNF
Discharge Diagnosis/Procedures: Fall. Right knee avulsion fracture. Right parietal scalp hematoma. Anemia. History of stroke with right hemiparesis and aphasia. History of seizures. History depression anxiety. History of human human
deficiency virus infection.
Diet: Low Cholesterol
Activity: As tolerated
Blood Work: Please PCP to order CBC, BMP within 1 week
Other Services: PT and OT
Referrals:
Elpidio Mathis DO [Family Provider] - in less than 1 week
Memo Walters MD [Active] - in two to three weeks
Prescriptions:
Continued
multivitamin Tablet
1 tab PO DAILY
acetaminophen 325 mg Tablet
650 mg PO Q6HPRN PRN (Reason: mild pain/temp>100.4)
cetirizine 10 mg Tablet
10 mg PO DAILY
hydralazine 25 mg Tablet
25 mg PO DAILYPRN PRN (Reason: sbp>160 and/or dbp>100)
Rx Instructions:
Give for sbp>160 and/or dbp>100-- do not give with other B/P meds
aspirin 81 mg Tablet,Delayed Release (Dr/Ec)
81 mg PO DAILY
baclofen 20 mg Tablet
20 mg PO TID
magnesium hydroxide [Milk of Magnesia] 400 mg/5 mL Suspension
30 ml PO DAILY PRN (Reason: if no bm x 3 days)
bisacodyl [Dulcolax (bisacodyl)] 10 mg Suppository
10 mg SD DAILYPRN PRN (Reason: if mom ineffective)
lisinopril 10 mg Tablet
10 mg PO DAILY
Hold Instructions: Hold until follow-up with your primary care doctor
Fleet Enema 19-7 gram/118 mL Enema
118 ml SD DAILY PRN (Reason: if dulcolax ineffective)
Excedrin Migraine 250-250-65 mg Tablet
2 tab PO DAILYPRN PRN (Reason: severe headache)
escitalopram oxalate [Lexapro] 10 mg Tablet
20 mg PO DAILY
omeprazole 20 mg Tablet,Delayed Release (Dr/Ec)
20 mg PO DAILY
Biktarvy 50-200-25 mg Tablet
1 tab PO DAILY
medroxyprogesterone 150 mg/mL Suspension
150 mg IM [id number]
metoprolol succinate 25 mg tablet extended release 24 hr
25 mg PO BID
lorazepam 0.5 mg tablet
0.5 mg PO [id number] PRN (Reason: increased anxiety)
levetiracetam [Keppra] 1,000 mg tablet
1,000 mg PO BID Qty: 60 0RF
cyclobenzaprine 10 mg Tablet
10 mg PO BID
atorvastatin [Lipitor] 10 mg Tablet
10 mg PO QPM
Rx Instructions:
07/24/23-called long-term to verify dose but nurse said she was too busy to find out if patient on 10mg or 40mg, both are listing on paperwork
Nurtec ODT 75 mg Tablet,Disintegrating
75 mg PO Q48H
atorvastatin 40 mg tablet
40 mg PO QPM
prochlorperazine maleate 10 mg Tablet
10 mg PO Q1H MDD 20mg/48hrs PRN (Reason: headache)
Patient Comments:
09/28/2023: 1 tablet at start of headache, may repeat in 1 hour if not resolved.
gabapentin 300 mg Capsule
300 mg PO BID
clonazepam 0.5 mg Tablet,Disintegrating
0.5 mg PO PRN MDD 5mg PRN (Reason: seizure)
clonazepam 2 mg Tablet,Disintegrating
5 mg PO PRN PRN (Reason: seizure)
lacosamide 150 mg Tablet
150 mg PO BID
Discharge Orders:
Discharge Patient (As Directed); Ordered 09/29/23
Ordered By: Job Iqbal
Discharge Date and Time
Print Language: ISRAELI
[2023-09-29 15:31] VITALS: BP 139/81
--- NOTE | 2023-09-29 16:36 | PTCARENOTE ---
IV removed. Patient left via ambulance on stretcher. Patient at baseline.
== END 2023-09-29 16:55 ==
LOC: 4 EAST ACU 18:35
PROVIDERS: ADMITTING PHYSICIAN Hospitalist; CONSULT PHYSICIAN Orthopaedic Surgery; EMERGENCY PHYSICIAN Emergency Medicine; FAMILY PHYSICIAN Internal Medicine
DX: S00.03XA Contusion of scalp, initial encounter (principal); S72.434A Nondisplaced fracture of medial condyle of right femur, initial encounter for closed fracture; I10 Essential (primary) hypertension; I69.320 Aphasia following cerebral infarction; D64.9 Anemia, unspecified; I69.351 Hemiplegia and hemiparesis following cerebral infarction affecting right dominant side; F32.A Depression, unspecified; F41.9 Anxiety disorder, unspecified; R56.9 Unspecified convulsions; G43.909 Migraine, unspecified, not intractable, without status migrainosus; R29.6 Repeated falls; W19.XXXA Unspecified fall, initial encounter; Z11.52 Encounter for screening for COVID-19; M50.322 Other cervical disc degeneration at C5-C6 level; Z21 Asymptomatic human immunodeficiency virus [HIV] infection status; Z79.82 Long term (current) use of aspirin; Z79.624 Long term (current) use of inhibitors of nucleotide synthesis; Z79.899 Other long term (current) drug therapy; Z95.0 Presence of cardiac pacemaker
CPT/HCPCS: 70450; 72125; 73502; 73564; 80048; 80053; 81003; 81015; 82550; 83735; 85025; 85027; 87070; 87502; 87811; 93005; 93288; 97166; 99285; G0378

== ENCOUNTER 2023-11-03 18:03 | Inpatient (IN) | payer OTHER, SELFPAY ==
[2023-11-03] VITALS (42 sets, daily range): BP systolic 118–159; BP diastolic 72–132; BMI 28.9
[2023-11-03 16:50] LABS: Glucose - Point of Care 100 mg/dl (70-99)
--- NOTE | 2023-11-03 16:52 | ED.CVA ---
History of Present Illness
General
Chief Complaint: CVA/TIA Symptoms
Source: patient
Time Seen by Provider: 11/03/23 16:49
Onset of Stroke Symptoms
Onset of symptoms known: No
Time pt last seen normal is known: Yes
Date last time pt seen normal: 11/04/23
Travel History
Have you had any contact with someone who has COVID-19?: Unable to Answer
Do you have any symptoms of coronavirus? Fever > 100 degrees, chills, cough, shortness of breath, sore throat, loss of taste or smell, muscle aches, or headache?: Unable to Answer
History of Present Illness
History of Present Illness:
53-year-old female with past medical history of migraines, seizures, hypertension, prior stroke with residual right-sided weakness and dysarthria, pacemaker, GERD, HIV who presents to the emergency department from [facility] via EMS for
evaluation of change in mental status/unresponsiveness. Patient cannot produce pain history as she is minimally responsive on arrival. I spoke with the nursing staff at [facility] directly to obtain collateral history: Apparently normally she is
awake and alert although she has chronic dysarthria and some ambulatory dysfunction due to left-sided weakness at baseline. She can ambulate with assistance. She was last seen normal at 2 PM today. Apparently there was an incident where staff
noticed her room smelled like smoke and confiscated a vape from her. Apparently at around 4:15 PM patient's roommate called staff to check on the patient. The staff found the patient essentially unresponsive in bed and called EMS. Per EMS
Accu-Chek was normal, vitals significant for hypertension. She was transported to the emergency room. According to the staff the patient's roommate mentioned that the patient may have had a fall in the bathroom earlier in the afternoon.
Past History
Past History
ED Past Medical History: CVA, HTN, Seizures, Psychiatric (Anxiety, depression) and Other (HIV positive, Migraines, PNA, )
ED Past Surgical History: Cardiac (pacer)
Social History
Tobacco: Non-smoker
Alcohol: None
Drug: None
Living: retirement
Review of Systems
Review of Systems
Unable to obtain full review of systems at this time due to: due to acuity
All Other Systems: Not applicable
Phy Exam
Physical Exam
Physical Exam:
General: Laying in bed very lethargic, groans and localizes to pain�GCS 9 ([id number])
Head: Normocephalic, atraumatic
Eyes: Conjunctiva normal, pupils dilated 8 mm and briskly reactive to light bilaterally with no clear gaze deviation
Throat: Airway intact, handling secretions
Neck: Trachea midline, supple without meningismus
Lungs: Clear to auscultation bilaterally, no wheezing, rales, rhonchi
Heart: Regular rate and rhythm, no murmurs, gallops, or rubs
Abd: Soft, non distended, no masses
Neuro: Patient has slight right-sided facial droop; she is a GCS of 9 as above; she is moving her left arm and left leg spontaneously including localizing to painful stimuli; right arm and right leg appear to be flaccid
Skin: no rash
Extremities: No edema in extremities, equal pulses in all extremities
Scores
NIH Stroke Score
Level of Consciousness: 1 - Arousable
LOC Questions: 2-Neither correct
LOC Commands: 2-Performs neither correctly
Best Horizontal Gaze: 0-Normal
Visual Spear: 0=Normal, no visual loss
Facial Palsy: 1=Minor paralysis
Motor - Right Arm: 3=None vs. gravity
Motor - Left Arm: 0=No drift 10 seconds
Motor - Right Le-None vs. gravity
Motor - Left Le-No drift 5 seconds
Limb Ataxia: 0-Absent
Sensation: 0-Normal
Best Language: 2-Severe aphasia
Dysarthria: 0-Normal
Extinction and Inattention: 0-No abnormality
Total Score:: 14
Heart Failure Risk
Heart Failure Risk Score: Not Applicable
Heart Score for Chest Pain Patients
STEMI patient?: Not applicable
Withdrawal Assessment of Alcohol
Withdrawal Assessment Completed?: Not applicable
Course
Orders/Labs/Results
Orders:
Orders
11/03/23 Dinner
NPO
Allow oral meds: No
Allow clear liquids: No
11/03/23 16:49
Electrocardiogram (*1) Stat
Reason for Study: Other
Other Reason for Exam: neuro symptoms
CT Head W/o Cont STROKE ALERT Urgent
Comment:
Reason For Exam: right hemiparesis, decreased responsiveness
CT Head/Neck Ang STROKE ALERT Urgent
Comment:
Reason For Exam: right hemiparesis, decreased responsiveness
Bedside Glucose- Treatment ONCE
Cardiac Monitoring- Treatment ONCE
EKG- Treatment ONCE
IV Insert/Care/Rem.- Treatment PRN
Vital Signs- Treatment ONCE
Frequency: q30m
O2 Therapy [RESP] Stat
Titrate/Wean O2 to maintain O2 sat greater than (%): 90
Pulse Ox/cont/shift [RESP] Stat
Quantity: 1
11/03/23 17:23
NIH Stroke Scale As Directed
Neurological Checks As Directed
Frequency: Per unit guidelines
11/03/23 17:36
Tenecteplase [Tnkase] 20 mg Syringe [Syringe Non-Pump] 0 ml IV NOW
Provider explained risk/benefits to patient &/or caregiver?: Yes
Blood pressure: 140/80
11/03/23 17:42
Alcohol Urgent
Complete Blood Count/With Diff Urgent
Comprehensive Metabolic Panel Urgent
Magnesium Urgent
PTT Urgent
Prothrombin Time Urgent
11/03/23 17:59
Admit/Transfer Patient As Directed
Co-Sign Provider:
Level of Care: Inpatient admission
Assign to:: ICU
Physician / Group: Hospitalist
Diagnosis: CVA/Seizure d/o
Reason for Hospitalization: CVA/Seizure d/o
Expected length of stay greater than two midnights?: Yes
ELOS- Estimated Length of Stay in days: 5
I certify the patient meets the requirements for IP care: Yes
11/03/23 18:02
Code Status As Directed
Resuscitation Status: Full Code
11/03/23 18:45
Acetaminophen [Tylenol] 650 mg PO Q4HPRN PRN
Atorvastatin [Lipitor] 40 mg PO QPM
Labetalol HCl [Trandate] 10 mg IV Q6HPRN PRN
11/03/23 18:45
Echo 2D MMode Color/Doppler Routine
Reason for Study: stroke/TIA
Electrocardiogram (*1) Routine
Reason for Study: TIA/Stroke
DIETARY CONSULT Routine
Reason for Consult: stroke/TIA
Coal Inspector Consult Routine
Consulting Provider: Dillan Ruggiero
Was physician already notified: Yes
Reason for consult: s/p TNK
NEUROLOGY CONSULT Urgent
Consulting Provider: Donato Childs
Was physician already notified: Yes
Reason for consult: seizure/stroke
Road Crossing Guard Urgent
EEG Routine Routine
Reason for Exam: complex-partial seizures
MA [place] Routine
Comment:
Reason For Exam: stroke/TIA
Recent pill cam endoscopy?: No
MA Neck With Contrast Routine
Comment:
Reason For Exam: stroke/TIA
Recent pill cam endoscopy?: No
MR Brain Without Contrast Routine
Comment: complete 24 hrs post tenecteplase admin &/or IAT
Reason For Exam: poss stroke, status post tenecteplase &/or IAT,
Recent pill cam endoscopy?: No
Hemetest Stools As Directed
Comment: hemoccult all stools if patient received tenecteplase
NIH Stroke Scale As Directed
Directions: Other
Comment: For Tenecteplase: NIH stroke Scale to be completed prior to administration, then every 1 hour for
2 hours, then every shift and with change in condition and/or mental status.
For IAT: NIH stroke scale to be completed at hand off, every 1 hour for 2 hours on arrival to ICU;
then every shift and with change in condition and/or mental status.
Neurological Checks As Directed
Frequency: Per unit guidelines
Additional Instructions:: after start of thrombolytic therapy and/or IAT:
q15min x 2 hrs, q30min x 6 hrs, q1h x 16 hrs, q4h x 24 hrs, then every shift and
with any changes.
Notify MD As Directed
Notify physician if: - Any deterioration, change in neurological status, development of severe headache,
nausea and vomiting, or with any signs of bleeding. (see guidelines for suspected
intracerebral hemorrhage).
- If intracranial hemorrhage is suspected or confirmed by imaging, anticipate need for
osmotic diuretic to maintain euvolemia.
Notify MD As Directed
Notify physician if: Glucose less than 70 or greater than 180.
Anticipate corrective insulin orders.
Notify MD As Directed
Notify physician if: SBP not at goal within 30 minutes of prn LABETALOL administration.
notify provider to initiate continuous infusion of nicardipine or clevidipine.
Notify MD As Directed
Notify physician if: unable to obtain MRI of head within 22-32 hours of tenecteplase administration and/or IAT
- contact Neurology for order for CT of head without contrast
Patient Education As Directed
Type: Stroke education packet
Comment: provide to patient and family
Pneumatic Compression Sleeves As Directed
Type: Knee high
Precautions As Directed
Type of Precautions: Bleeding
Comment: post Bleeding Precaution sign at bedside (if patient received tenecteplase)
Swallow Screening CVA/TIA ONLY As Directed
Comment: NPO until swallow screening completed
If patient FAILS swallow screening:: NPO and Speech consult and aspiration precautions
If patient PASSES swallow screening, diet:: Low Fat
Above diet order entered?: No- failed screening
Thrombolytic Precautions As Directed
Thrombolytic Precautions:: Marydel bleeding precautions. Minimize invasive procedures and venipunctures,
avoid IM injections and over-handling patient, and check all puncture sites for
bleeding. Assess the patient and notify provider for signs and symptoms of
internal or serious bleeding, such as changes in vital signs or evidence of blood
in the urine or stool.
Additional instructions: Hemocult all stools.
Apply direct pressure or pressure dressing to any compressible puncture sites.
No ABG sampling or Urias insertion after Tenecteplase administration for 24 hours,
unless directed by the Neurologist/Attending.
Vital Signs As Directed
Frequency: q15m
Call for:: BP greater than 180/105 mmHg or less than 100/60 mmHg
Additional Instructions:: after start of thrombolytic therapy and/or IAT:
q15min x 2 hrs, q30min x 6 hrs, q1h x 16 hrs, q4h x 24 hrs, then every shift and
with any changes.
Ot Eval And Treat Routine
Pt Eval And Treat Routine
Activity Level: Out of Bed-Early Mobility
Speech Therapy Eval & Treat Routine
DX Deep Vein Thrombosis Video Routine
11/03/23 20:00
Gabapentin [Neurontin] 300 mg PO BID
Levetiracetam Injectable [Keppra] 1,000 mg IV Q12
11/03/23 21:40
Urine Drug Abuse Screen Stat
Date Specimen was Collected: 11/03/23
Time Specimen was Collected: 21:39
11/03/23 22:00
Baclofen [Lioresal] 20 mg PO TID
11/04/23 06:00
Basic Metabolic Panel IN AM
Glycohemoglobin (HgbA1c) IN AM
Comment: If not done in the ED
PTT IN AM
Prothrombin Time IN AM
VerifyNow Aspirin IN AM
Pt on daily regimen OR been given initial dose of aspirin?: Yes
11/04/23 08:00
Bictegrav/Emtricit/Tenofov [Biktarvy 50-200-25 mg Tablet] 1 tablet PO DAILY
Cetirizine HCl [Zyrtec] 10 mg PO DAILY
Escitalopram Oxalate [Lexapro] 20 mg PO DAILY
Abnormal Lab Results
11/03/23 11/03/23
16:50 17:42
RBC 3.80 L 10^6/uL
(4.20-5.40)
MCH 32.1 H pg
(27.0-31.0)
MCHC 32.7 L g/dL
(33.0-37.0)
Absolute Neuts (auto) 8.2 H 10^3/uL
(1.4-6.5)
Neutrophils % 79.1 H %
(42.2-75.2)
Lymphocytes % 14.4 L %
(20.5-51.1)
Sodium 133 L mmol/L
(135-145)
POC Glucose 100 H mg/dl
(70-99)
11/03/23 17:42
11/03/23 17:42
Vital Signs
Initial and Last Documented VS:
Initial Vital Signs
Pulse Resp BP Pulse Ox
66 13 140/80 100
11/03/23 17:05 11/03/23 17:05 11/03/23 17:05 11/03/23 17:05
Last Documented Vital Signs
Temp Pulse Resp BP Pulse Ox
36.8 C 65 7 163/81 99
11/04/23 00:12 11/04/23 00:00 11/04/23 00:00 11/04/23 00:00 11/04/23 00:12
Procedures
IV Access
Indication: Emergent access required, RN unable to obtain and Physician skill needed
Performed by:: Gomez Julio MD
Site:: right arm
Gauge:: 18
Ultrasound Guidance: Yes
MDM/Problems Addressed
Differential Diagnosis Includes:
Seizure with postictal period and Rey's paralysis, intracranial hemorrhage, acute CVA, drug/alcohol intoxication
MDM/Problems Addressed:
53-year-old female with history as documented presents to the emergency room for evaluation of change in mental status/minimal responsiveness and apparent worsening right-sided weakness. Timeline as above�last seen normal at 2 PM and discovered
slumped in her bed as she appears in the emergency room around 4:15 PM. She is on aspirin but no other blood thinners. Prehospital stroke alert was called. Vitals and exam as documented. Appears to be protecting her airway at present. Accu-Chek
normal on arrival. Sent for a CT head; discussed with neurology will also proceed with a CT perfusion, CTA head and neck. Labs sent off including CBC and CMP, coags. Will check EKG. Will monitor closely reassess after the above.
CT head no acute pathology. Discussed case at length with neurology�given abrupt onset and no clear witnessed seizure-like activity now, history of large stroke in the past neurology recommending proceeding with tenecteplase. I did speak with
patient's guardian on the phone and he consented after explanation of risks and benefits. Critical care alert was called. Will plan for transport to the ICU.
Unfortunately patient's IV access infiltrated after CT angiogram. Patient did receive tenecteplase through IV. She is very difficult peripheral IV access and I think risks of bleeding/hematoma with attempts at central venous access after recent
thrombolytic is too high. For this reason we placed a right pretibial intraosseous line for IV access for the time being. Will plan to transport patient to the ICU. Her exam remains unchanged.
Chronic conditions affecting care:
Prior stroke, hypertension�higher risk for acute CVA
Acute Exacerbation and/or Progression of Chronic Illness:
Acutely hypertensive
Acute Exacerbation and/or Progression of Chronic Illness: HTN
*Radiology
Radiology exam reviewed: radiology read reviewed
*Pulse Oximetry
Patient hypoxic: no
*Critical Care Note
Total Time (30-74mins, 75-104mins- exclusive of procedures): 31
comment:
Critical care statement: A total of 31 minutes of critical care time was provided for this patient. This includes management of unstable vital signs, evaluation of the patient at bedside, frequent reassessment, discussion with
consultants/hospitalist, and review of pertinent medical records. This time was separate from time utilized to perform any aforementioned documented procedures
Data Reviewed
Review of Other/Old Records Reveals: Labs and Records
Source: records, ambulance crew and retirement
Patient Management
Discussion with other providers: Hospitalist (Discussed with hospitalist), Swimming Coach Or Instructor (Discussed with neurology) and [facility] staff (Discussed directly with nursing staff)
Escalation/DeEscalation of care consider admission/obs:
Admission indicated
ED Attending Note
-
Portions of this chart may have been created with voice recognition software.� Occasional wrong word or��sound alike� substitutions may have occurred due to the inherent limitations of voice recognition software.
Discharge Plan
Departure
Patient Disposition: Admit
Date of Disposition: 11/03/23
Time of Disposition: 17:38
Admit to doctor: Brady
Presentation/result/management discussed w/ accepting MD/DO: Hospitalist
Discharge Problem:
Acute CVA (cerebrovascular accident), Altered mental status
Interventions
Interventions:
*Risk Screen - Suicide Last Done: 11/03/23 17:05
*General Assessment Last Done: 11/03/23 16:46
*Neglect/Abuse Screening Last Done: 11/03/23 17:05
ED- Fall Risk Assessment Last Done: 11/03/23 19:09
*ED COVID-19 Vaccine History Last Done: 11/03/23 16:46
*Nursing Disposition Last Done: 11/03/23 19:09
ED- Pulmonary Assessment Last Done: 11/03/23 17:11
ED- Neurological Assessment Last Done: 11/03/23 17:25
ED- Cardiac Assessment Last Done: 11/03/23 17:08
ED Swallowing Screen Last Done: 11/03/23 17:47
Discharge Date and Time
Discharge Date/Time: 11/03/23 19:02
[2023-11-03 17:47] LABS: % Basophils 0.5 % (0-2); % Eosinophils 1.9 % (0-6); % Immature Granulocytes 0.3 % (0-0.5); % Lymphocytes 14.4 % (20.5-51.1); % Monocytes 3.8 % (1.7-9.3); % Neutrophils 79.1 % (42.2-75.2); Absolute Basophils 0.1 10^3/uL (0-0.2); Absolute Eosinophils 0.2 10^3/uL (0-0.7); Absolute Lymphocytes 1.5 10^3/uL (1.2-3.4); Absolute Monocytes 0.4 10^3/uL (0.1-0.6); Absolute Neutrophils 8.2 10^3/uL (1.4-6.5); Hematocrit 37.3 % (37.0-47.0); Hemoglobin 12.2 g/dL (12.0-16.0); Mean Corp Hgb Conc. 32.7 g/dL (33.0-37.0); Mean Corpuscular Hgb 32.1 pg (27.0-31.0); Mean Corpuscular Volume 98.2 fL (81.0-99.0); Mean Platelet Volume 9.7 fL (7.4-10.4); Nucleated Red Blood Cells % 0 %; Platelet Count 183 10^3/uL (130-400); Red Cell Dist. Width 11.8 % (11.5-14.5); White Blood Cell Count 10.4 10^3/uL (4.8-10.8)
[2023-11-03] MEDS: TNKASE 4 MG IV (17:49)
[2023-11-03 17:56] LABS: APTT 26.8 Sec (23.4-35.0); INR 1.02; PT 13.4 Sec (11.4-14.6)
[2023-11-03 18:01] LABS: ALT (SGPT) 23 U/L (0-35); AST (SGOT) 23 U/L (14-36); Albumin 4.3 g/dl (3.5-5.0); Alkaline Phosphatase 74 U/L (38-126); Blood Urea Nitrogen 11 mg/dl (7-17); Calcium 9.5 mg/dl (8.4-10.2); Carbon Dioxide 27 mmol/L (22-30); Chloride 103 mmol/L (98-107); Glucose 94 mg/dl (70-99); Potassium 4.3 mmol/L (3.5-5.1); Sodium 133 mmol/L (135-145); Total Bilirubin 0.3 mg/dl (0.2-1.3); Total Protein 6.8 g/dl (6.3-8.2); eGFR > 60.00
[2023-11-03 18:02] LABS: Alcohol None Detected
--- NOTE | 2023-11-03 18:09 | HPS.HSE ---
Family Physician
-
Family Physician: Elpidio Mathis, DO
Chief Complaint
-
Unresponsive
History of Present Illness
53yo with PMHx of HIV, seizure d/o, CVA with R sided residual paresis brought to the ED when her roommate found her unresponsive. Found to have R fascial droop, which is unusual for her. As per communication between neurologist and ED provider -
received TNK. Remained sleeping and unresponsive for verbbal stimuli at the time of admission. CT head on admission showed known L hemisphere encephalomalacia 2/2 old CVA
Medical History
Past Medical History
Past Medical History: Reports Other
Additional Past Medical History:
See above
Past Surgical History: Reports None
Social History
Unable to obtain full social history at this time due to: Acuity
Family History
Family History: Not pertinent
Allergies / Home Medications
Allergies reflects when Allergies were last updated in [employer].
Home Medications with original date entered in [employer]
Allergy/Medication List:
Allergies
Allergy/AdvReac Type Severity Reaction Status Date / Time
No Known Allergies Allergy Verified 04/01/23 10:16
Home Medications
acetaminophen 325 mg tablet 650 mg PO Q6HPRN PRN mild pain/temp>100.4 06/12/22
aspirin 81 mg tablet,delayed release 81 mg PO DAILY Blood clot prevention/tx 06/12/22
dgnitgs-vcapwnfjilrtm-qnxjomfq 250 mg-250 mg-65 mg tablet (Excedrin Migraine) 2 tab PO DAILYPRN PRN severe headache 06/12/22
baclofen 20 mg tablet 20 mg PO TID Muscle spasms 06/12/22
bictegravir 50 mg-emtricitabine 200 mg-tenofovir alafenam 25 mg tablet (Biktarvy) 1 tab PO DAILY HIV 06/12/22
bisacodyl 10 mg rectal suppository (Dulcolax (bisacodyl)) 10 mg NH DAILYPRN PRN if MOM ineffective 06/12/22
cetirizine 10 mg tablet 10 mg PO DAILY Allergies 06/12/22
hydralazine 25 mg tablet 25 mg PO DAILYPRN PRN sbp>160 and/or dbp>100 06/12/22
lisinopril 10 mg tablet 10 mg PO DAILY Blood pressure 06/12/22
magnesium hydroxide 400 mg/5 mL oral suspension (Milk of Magnesia) 30 ml PO DAILY PRN if no BM x 3 days 06/12/22
multivitamin 1 tab PO DAILY Supplement 06/12/22
omeprazole 20 mg tablet,delayed release 20 mg PO DAILY Gastrointestinal issue 06/12/22
sodium phosphates 19 gram-7 gram/118 mL enema (Fleet Enema) 118 ml NH DAILY PRN if dulcolax supp ineffective 06/12/22
medroxyprogesterone 150 mg/mL intramuscular suspension 150 mg IM [id number] Hormonal Agent 10/18/22
metoprolol succinate 25 mg tablet,extended release 24 hr 25 mg PO BID Blood pressure 04/01/23
levetiracetam 1,000 mg tablet (Keppra) 1,000 mg PO BID #60 tabs 04/03/23
lorazepam 0.5 mg tablet 0.5 mg PO [id number] PRN increased anxiety 04/03/23
cyclobenzaprine 10 mg tablet 10 mg PO BID Muscle Spasms 07/24/23
rimegepant 75 mg disintegrating tablet (Nurtec ODT) 75 mg PO Q48H migraine 07/24/23
atorvastatin 40 mg tablet 40 mg PO QPM High Cholesterol 09/28/23
clonazepam 0.5 mg disintegrating tablet 0.5 mg PO PRN PRN seizure 09/28/23
clonazepam 2 mg disintegrating tablet 5 mg PO PRN PRN seizure 09/28/23
gabapentin 300 mg capsule 300 mg PO BID pain 09/28/23
lacosamide 150 mg tablet 150 mg PO BID seizure 09/28/23
prochlorperazine maleate 10 mg tablet 10 mg PO Q1H PRN headache 09/28/23
carbamide peroxide 6.5 % ear drops (Debrox) 5 drp RIGHT EAR BID 11/03/23
escitalopram oxalate 20 mg tablet (Lexapro) 20 mg PO DAILY 11/03/23
Review of Systems
-
Unable to obtain full review of systems at this time due to: Patient Non-verbal
Physical Exam
Vital Signs
Vital Signs
Pulse Resp BP Pulse Ox
66 13 140/80 100
11/03/23 17:05 11/03/23 17:05 11/03/23 17:05 11/03/23 17:11
Physical Exam
General: Well Developed
HEENT: NormoCephalic and Anicteric
Respiratory: Clear; No Wheezes or Rales
Cardiac: S1/S2 and Regular Rhythm
GI: Soft and Non Distended
Musculoskeletal: No Clubbing, No Cyanosis and No Edema
Skin: Warm; No Dry or Rash
Neuro: Sedated
Psych: Calm
Laboratory Results
-
11/03/23 17:42
11/03/23 17:42
Laboratory Results
PT 13.4 Sec (11.4-14.6) 11/03/23 17:42
INR 1.02 11/03/23 17:42
APTT 26.8 Sec (23.4-35.0) 11/03/23 17:42
Total Bilirubin 0.3 mg/dl (0.2-1.3) 11/03/23 17:42
AST 23 U/L (14-36) 11/03/23 17:42
ALT 23 U/L (0-35) 11/03/23 17:42
Alkaline Phosphatase 74 U/L (38-126) 11/03/23 17:42
Data Reviewed
-
Lab Data: Labs Reviewed by me
Impression/Plan
-
IMPRESSION/PLAN:
#CVA/TIA r/o breakthrough seizures
s/p TPA
serial CT head
MRI, MRA head/neck
Echo
telemetry
neurochecks
permisive HTN
avoid arterial pumcture for 24h
Avoid antiplatelets and anticoagulationj for 24h
statin
check TSH, HGbA1c, LDL
Neuro consult
Seizure precautions
Cont Keppra, Lacosamide (IV) - as per neurologist
Artivan PRN
EEG
Check urine drug screen
Check CPK, chest XR and UA
#HIV
Cont bictarvi
#Migraines
#MDD
#Essential HTN
COnt home meds after initial 24h monitoring
I have spent at least 60 min providing critical care to the patient
[2023-11-03 19:25] LABS: Magnesium 1.9 mg/dl (1.6-2.3)
[2023-11-03] MEDS: LIORESAL PO (19:48)
[2023-11-03] MEDS: NEURONTIN PO (19:48)
[2023-11-03] MEDS: LIPITOR PO (19:48)
[2023-11-03] MEDS: D5/0.9% SODIUM CHLORIDE 1000 IV (20:51)
[2023-11-03] MEDS: KEPPRA 1000 MG IV (20:52)
[2023-11-03] MEDS: VIMPAT 150 MG IV (20:52)
--- NOTE | 2023-11-03 21:35 | VATNOTE ---
1930-PT IN ICU POST ANTI-THROMBOLYTIC THERAPY,TNK, W/O ANY IV ACCESS. PCN REPORTS PT DEMONSTRATED EXTREME PAIN WHEN I/O FLUSHED. MULTIPLE CONVERSTAIONS WITH DARLENE GIRON, RELATED TO MOST APPROPRIATE IV ACCESS AT THIS TIME FOR PT IN CONSIDERATION
OF RECENT TNK. 4FR L MIDLINE INSERTED EASILY, ON FIRST ATTEMPT AND W/O ANY INCISION TO INSERT INTRODUCER. MINIMAL BLEEDING NOTED. EXCELLENT BR OBTAINED.WILL ALSO NOT REMOVE I/O AT THIS TIME UNTIL 24HRS POST TNK. LARGE INFILTRATED AREA NOTED IN RAC
THAT ACCORDING TO EMR DOCUMENTATION OCCURRED IN CT. IV HAD BEEN REMOVED PRIOR TO ARRIVAL IN ICU. NO BLEEDING NOTED FROM THAT SITE. VAT TO FOLLOW FOR ADDITIONAL IV ACCESS NEEDS.
--- NOTE | 2023-11-03 21:44 | PTCARENOTE ---
1930- received patient from ER, report given at bedside. TNK administered at 1750. R arm PIV infiltrated during CTA, scan not completed. NIH 34 during handoff. R leg IO in place, pt becomes agitated and grimaces when flushed. this RN informed that
pt slurs words at basline and has chronic R sided weakness.
NIH findings- pt unresponsive, R eye abnormal gaze, absent corneal reflexes, R side facial partial paralysis, R>L arm weakness, LE weakness, sensory loss on R side.
Pt unresponsive upon arrival. snoring, pupils 5mm and extremely sluggish. arouses only to sternal rub. GCS 6. HOB at 30 degrees. ICU VENEER GRADER notified and at bedside to assess patient. SR on monitor, pacemaker noted. afebrile. weak pedal pulses. lungs
CTA, on RA. increased oral secretions, hypoactive gag noted. hypoactive bowel sounds, NPO. bladder scan for 1200 ml, pt with soiled brief. ICU VENEER GRADER notified, no new orders. purewick placed. UA and MRSA sent. VAT paged to place new line, LUE midline
placed. instructed by ICU VENEER GRADER to keep R leg IO in place for now.
Pt taken for repeat CTA. IVF initiated upon return. NIH remains 34. neuro checks ongoing.
[2023-11-03 21:50] LABS: Urine Albumin Negative (Neg - Trace); Urine Bilirubin Negative (Negative); Urine Character Slightly Cloudy (Clear); Urine Color Yellow; Urine Glucose Negative (Negative); Urine Ketone Negative (Negative); Urine Leukocyte 2+ (Negative); Urine Nitrite Negative (Negative); Urine Occult Blood 1+ (Negative); Urine Urobilinogen Negative (Neg - 1+)
[2023-11-03 21:58] LABS: Urine Bacteria Few (Negative); Urine Squamous Cell 26-30 /LPF (Few); Urine White Cell >100 /HPF (0-5)
--- NOTE | 2023-11-03 22:02 | W.PN.UPDATE ---
Update Note
Progress Note Update
UA concerning for pyuria
Zosyn and Bcx ordered
[2023-11-03 22:04] LABS: Amphetamines Negative (Negative); Barbiturates Negative (Negative); Benzodiazepines Negative (Negative); Buprenorphine Negative (Negative); Cocaine Negative (Negative); Marijuana Positive (Negative); Methadone Negative (Negative); Methamphetamines Negative (Negative); Opiates Negative (Negative); Phencyclidine Negative (Negative); Tricyclic Antidepressants Negative (Negative)
--- NOTE | 2023-11-03 22:33 | PHA.VAN.IN ---
Assessment
- Assessment
Renal Function: Appears similar to baseline
Concomitant Antimicrobials: ZOSYN
- Previous Dosing Experience
Previous Regimen: NONE
AUC Dosing Plan
- Dosing Variables
Dosing Weight (kg): 78.8
Dosing CrCl (ml/min): 86
Vd coefficient (L/kg): 0.7
- Empiric Dosing
Initial / Loading Dose: 2GM
Maintenance Regimen: 1GM IV Q12H
Estimated AUC (mcg*h/mL): 497
Estimated Peak (mcg*h/mL): 30.4
Estimated Trough (mcg/ml): 13.2
Estimated Half Life (H): 9.1
Pharmacokinetics Vancomycin I
- -
Patient Age: 53
Patient Sex: Female
Vancomycin Day #: 1
Indication: Genito-Urinary Tract
Requesting Provider: ZENIA
Height / Weight:
Height 5 ft 5 in
Actual Weight 78.8 kg
- Vital Signs / Lab Results
Temp Pulse Resp BP Pulse Ox
98.1 F 64 13 139/76 99
11/03/23 21:23 11/03/23 22:20 11/03/23 22:20 11/03/23 22:20 11/03/23 22:15
Lab Results - Hematology
11/03/23
17:42
WBC 10.4
Lab Results - Chemistry
11/03/23
17:42
BUN 11
Creatinine 0.8
Albumin 4.3
Lab Results - Urine
11/03/23 11/03/23 11/03/23
21:40 21:40 21:40
Urine Nitrite (Reflex) Negative Cancelled
Leukocyte Esterase Rfl 2+ A Cancelled
Urine WBC (Reflex) >100 A
Ur Squamous Epith Cells 26-30
Urine Bacteria (Reflex) Few A
[2023-11-03] MEDS: VANCOCIN 540 MG IV (22:39)
[2023-11-03 23:55] LABS: Venous Blood Gas B.E. -0.9 mmol/L (-4 to +4); Venous Blood Gas HCO3 26.8 mmol/L (22-27); Venous Blood Gas O2 Sat % 54.1 %; Venous Blood Gas pCO2 57 mmHg (35-48); Venous Blood Gas pH 7.28 (7.32-7.43); Venous Blood Gas pO2 33 mmHg (30-50)
[2023-11-03 23:56] LABS: Venous Blood Gas O2 Therapy 28
[2023-11-04] VITALS (56 sets, daily range): BP systolic 92–175; BP diastolic 41–118; BMI 28.9
--- NOTE | 2023-11-04 00:13 | PTCARENOTE ---
pt reassessed. GCS, pt now opens eyes to voice. more movement noted. VBG sent to assess resp status. pt remains in SR, on room air. purewick draining clear yellow urine. care ongoing.
[2023-11-04] MEDS: ZOSYN 50 IV ×5 (00:53→23:49)
[2023-11-04 03:59] LABS: % Basophils 0.3 % (0-2); % Eosinophils 2.5 % (0-6); % Immature Granulocytes 0.2 % (0-0.5); % Lymphocytes 17.9 % (20.5-51.1); % Monocytes 6.2 % (1.7-9.3); % Neutrophils 72.9 % (42.2-75.2); Absolute Eosinophils 0.2 10^3/uL (0-0.7); Absolute Lymphocytes 1.7 10^3/uL (1.2-3.4); Absolute Monocytes 0.6 10^3/uL (0.1-0.6); Absolute Neutrophils 6.8 10^3/uL (1.4-6.5); Hematocrit 38.4 % (37.0-47.0); Hemoglobin 12.5 g/dL (12.0-16.0); Mean Corp Hgb Conc. 32.6 g/dL (33.0-37.0); Mean Corpuscular Hgb 31.6 pg (27.0-31.0); Mean Corpuscular Volume 97.2 fL (81.0-99.0); Mean Platelet Volume 9.8 fL (7.4-10.4); Nucleated Red Blood Cells % 0 %; Platelet Count 208 10^3/uL (130-400); Red Blood Cell Count 3.95 10^6/uL (4.20-5.40); Red Cell Dist. Width 11.8 % (11.5-14.5); White Blood Cell Count 9.3 10^3/uL (4.8-10.8)
[2023-11-04 04:10] LABS: PT 14.2 Sec (11.4-14.6)
[2023-11-04 04:25] LABS: ALT (SGPT) 21 U/L (0-35); AST (SGOT) 21 U/L (14-36); Albumin 4.1 g/dl (3.5-5.0); Alkaline Phosphatase 69 U/L (38-126); Blood Urea Nitrogen 8 mg/dl (7-17); Calcium 9.4 mg/dl (8.4-10.2); Carbon Dioxide 27 mmol/L (22-30); Chloride 111 mmol/L (98-107); Creatine Phosphokinase 90 U/L (30-135); Estimated Creatinine Clearance 99 ml/min; Glucose 116 mg/dl (70-99); HDL Cholesterol 47 mg/dl; LDL Cholesterol, Calculated 59 mg/dl; Potassium 5.1 mmol/L (3.5-5.1); Sodium 141 mmol/L (135-145); Total Bilirubin 0.5 mg/dl (0.2-1.3); Total Cholesterol 128 mg/dl (50-199); Total Protein 6.6 g/dl (6.3-8.2); Triglyceride 113 mg/dl (10-149); Very Low Density Lipoprotein 22 mg/dl (0-30); eGFR > 60.00
--- NOTE | 2023-11-04 04:31 | PTCARENOTE ---
pt reassessed. restless in the bed at times. GCS improved to 10. deficits unchanged. does not follow commands. groans intermittently. AM labs sent. pt repositioned with pillows. repeat head CT ordered for 0600. care ongoing.
[2023-11-04 04:43] LABS: VerifyNow Aspirin 414 ARU
[2023-11-04 04:52] LABS: TSH Reflex To Free T4 1.62 uIU/ml (0.47-4.68)
[2023-11-04] MEDS: D5/0.9% SODIUM CHLORIDE 1000 IV ×2 (05:13→15:34)
--- NOTE | 2023-11-04 05:34 | PTCARENOTE ---
pt becoming extremely restless and agitated, swinging leg and arm over side rail. pt yelling and trying to hit this RN. unable to deescalate patient in situation at this time. ICU STRAIGHT TRUCK DRIVER notified, four point soft limb restraints ordered and placed on
patient for safety. seizure pads and pillows on bed. care ongoing.
[2023-11-04] MEDS: LIORESAL PO ×3 (07:14→19:43)
[2023-11-04] MEDS: NEURONTIN PO (07:14)
[2023-11-04] MEDS: ZYRTEC PO (07:14)
[2023-11-04] MEDS: LEXAPRO PO (07:14)
[2023-11-04] MEDS: VIMPAT 150 MG IV ×2 (07:28→19:33)
[2023-11-04] MEDS: KEPPRA 1000 MG IV ×2 (07:31→19:33)
[2023-11-04] MEDS: NSS (PRESERVATIVE FREE) 0.5 ML IV ×5 (08:15→21:17)
[2023-11-04] MEDS: ATIVAN 1 MG IV ×5 (08:15→21:17)
--- NOTE | 2023-11-04 08:25 | PTCARENOTE ---
pt received from previous rn-completed nih with offgoing nurse- nih 34. echo at bedside- pt removed restraint, thrashing in bed, agitated. Dr. Mares, Dr. Barth and Dr. Ruggiero aware of pts agitation and being uncooperative as well as NIH score.
Bahman at bedside- hold on ct and mri at this time. ativan given as per order. Dr. Mares ok to hold ct as well. pt with right>left weakness. pt nonverbal, groaning. pulling on wires and rn. ivf continue via left midline. right taylor IO intact.
bruises noted to heels. complete bed change provided. purewick intact. all safety precautions in place. pt in 4 point restraints and protective foam to side rails. nsr on monitor, pt on room air. see neuro flowsheet.
--- NOTE | 2023-11-04 08:41 | PTOTSP ---
Orders received, chart reviewed. Patient received TNK on 11/03/23 at 1730. Will hold evaluation for 24 hours.
Will evaluate on 11/05/23.
--- NOTE | 2023-11-04 08:58 | CON.NEURO ---
Addendum entered and electronically signed by Baltazar Mares MD 11/04/23 16:44:
Patient received tenecteplase due to concerns regarding stroke
Recheck CT of head as comparator with prior image as the patient has pacemaker which is a delay to MRI of brain
Original Note:
Neuro Assessment/Plan
Assessment
IMPRESSIONS/RECOMMENDATIONS:
Abrupt change in mental status in a patient with prior history of seizures, HIV infection, stroke, and suggestion of recent vaping of a substances
Differential diagnosis includes toxic metabolic encephalopathy, recurrent seizures, not suggested by EEG performed
Plan
Check EEG, completed
Continue lacosamide
Continue levetiracetam
Attempt to avoid additional sedative agents if possible
Likely too late for urine drug screen
Provide thiamine
Will continue to follow patient. Thank you.
Consultation
Order
Date of Consultation: 11/04/23
Requesting Provider: Podiatric Medicine Doctor
Reason for Consult: Change in mental status
Subjective/Objective
Subjective Data
Date of Service: November 04, 2023
Adapted from my note 07/2023
Headaches/Migraines:
Since last visit:
07/2023
05/2023
Unclear frequency of events
Currently left-handed
History from care-provider, none from patient
Began (prior to initial evaluation in this office):
01/2023
stroke in 2021
light-headedness
unsteadiness with falling (falling over while standing), pain in right leg
right leg pains
headaches
pain down left-side
experienced a stroke
Previous testing: none available
Previous evaluation: PCP
Prior medication(s) for prevention: none
Prior medication(s) for rescue: OTC meds, Rimegepant
Side-effects with medications: none
Previous treatment(s): none
Frequency: Per week: falling unclear
headache unclear --> 2x/week
Duration: chronic since prior to 2021
Duration of symptom: unclear --> 6 hours
Intensity: unclear
Etiology: unclear
Location: right-sided pain
Trigger(s): unclear
Quality: unclear
Associated symptom(s): unclear
Associated symptoms do not include: neck pain
Improving factors: patient unaware of any
Worsening factors: patient unaware of any
Unchanged by: Rimegepant
Severity: significant.
Limb Pain:
Right arm and right leg pain
Prior treatments: Botulinum toxin injections 04/2023, no weakness
Frequency: unclear
Intensity: unclear
Quality: unclear
Etiology: prior left hemispheric stroke
Unchanged by: Botulinum toxin injections
Severity: significant.
Seizure:
Today 04/13/2023
Since her last visit with Dr. Mares 02/03/2023 she was admitted to the hospital on 04/01/2023 for seizure activity as well as 04/03/2023. CT head showed old 10 cm left tempoparietal infarct extending to involve the caudate head, Insular cortex,
external capsule) demand on the left without associated volume loss encephalomalacia. There were no acute intracranial abnormalities. There is no intracranial hemorrhage. There is no edema or mass effect to suggest neoplasm.
Keppra has now been increased to 1000 mg BID. Since discharge she has had an additional seizure yesterday (). It is unclear dosage of Keppra she has been recievng as facility did not send medicaton list. She has had no new stoke
symptoms. She continues on ASA and Atorvastatin for stroke prevention. She has continued to take baclofen and ativan for spasticity and has scheduled appointment for Botox.
Assessments
1. 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
2. Syncope, unspecified syncope type - R55
3. Falling episodes - R29.6
4. Headache, unspecified headache type - R51
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
6. HIV infection, unspecified symptom status - B20
7. 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
8. Seizure - R56.9
Treatment
1. Flexion contractures
PROCEDURE: Physical Therapy
2. Seizure
Increase Lacosamide Tablet, 150 MG, 1 tablet, Orally, Twice a day, 90 days, 180, Refills 1, Notes: From 100 mg BID to 150 mg BID
PROCEDURE: EEG over 1 hour with video
Notes: Increased seizure activity
Right-sided body pains with recent Bolutinum toxin injections
Daily headaches
ORDERS:
1. Check EEG
2. Increase Lacosamide dose from 100 mg BID to 150 mg BID
3. Discontinue Vimpat
4. Physical therapy restart
5. Prochlorperazine 10 mg at start of headache, may repeat after 1 hour if not resolved
~~~~
Patient returned to this hospital's emergency department from her assisted living facility described as unresponsive. Subsequently, the patient received tenecteplase after stroke alert was initiated. Patient was described as having significant
agitation upon awakening for which the patient received lorazepam. Currently the patient is unable to provide her own medical history. There are no known modifying this. The patient has not had a known similar event.
Objective Data
Vital Signs
Temp Pulse Resp BP Pulse Ox
37.1 C 69 11 154/84 98
11/04/23 07:20 11/04/23 08:11 11/04/23 08:11 11/04/23 08:11 11/04/23 08:11
Lab Results
11/04/23 03:44
11/04/23 03:44
PT Cancelled 11/04/23 06:00
INR Cancelled 11/04/23 06:00
APTT Cancelled 11/04/23 06:00
Sodium 141 mmol/L (135-145) D 11/04/23 03:44
Potassium 5.1 mmol/L (3.5-5.1) 11/04/23 03:44
BUN 8 mg/dl (7-17) 11/04/23 03:44
Glucose 116 mg/dl (70-99) H 11/04/23 03:44
Calcium 9.4 mg/dl (8.4-10.2) 11/04/23 03:44
LDL Cholesterol, Calc 59 mg/dl 11/04/23 03:44
Ur Buprenorphine Cancelled 11/03/23 21:40
Ur Buprenorphine Negative (Negative) 11/03/23 21:40
Patient Allergies
No Known Allergies Allergy (Verified 04/01/23 10:16)
CVA Assessment
Onset of Stroke Symptoms
Onset of symptoms known: No
Date of onset of symptoms: 11/03/23
Time pt last seen normal is known: No
Date last time pt seen normal: 11/03/23
NIH Stroke Score
Level of Consciousness: 2 - Obtunded
LOC Questions: 2-Neither correct
LOC Commands: 2-Performs neither correctly
Best Horizontal Gaze: 0-Normal
Visual Spear: 0=Normal, no visual loss
Facial Palsy: 1=Minor paralysis (On the right)
Motor - Right Arm: 4=No movement
Motor - Left Arm: 0=No drift 10 seconds
Motor - Right Le-No movement
Motor - Left Le-No drift 5 seconds
Limb Ataxia: 0-Absent
Sensation: 0-Normal
Best Language: 3-Mute/global aphasia
Dysarthria: 0-Normal
Extinction and Inattention: 0-No abnormality
Total Score:: 18
Tenecteplase Contraindications
Inclusion and Exclusion criteria reviewed: Yes
IAT Contraindications: Imaging doesn't show large vessel occlusion as cause of stroke
Review of Systems
-
Unable to obtain full review of systems at this time due to: Other (lethargic, restless)
History Source: Patient
All other systems: Reviewed and negative
Physical Exam
-
General: No Apparent Distress and Appears Stated Age
Eyes: Round OU, Gerald Conjunctivae and No Ptosis; Negative Able to visualize OU
HEENT: Anicteric and Moist Mucous Membranes
Neck: Full Range of Motion
Respiratory: No Dyspnea
Cardiac: No JVD
GI: Non-distended
Extremities: No Clubbing, No Cyanosis and No Edema
Psych: Unable to Assess
Extended Neurological Exam
Mood & Affect: Unable to Assess
Attention Span & Concentration: Other (Does not perform single step requests; maintains eyes closed while writhing and working against 4 point restraints); Negative Awake, Alert, Interactive or Unresponsive to Physical Stimuli
Memory: Unable to Assess
Tremor: Hand Tremor Absent and Head Tremor Absent
Involuntary Movement: None
Speech: Mute
Cranial Nerve II: Left Eye: Pupillary Reactivity Unremarkable and Unable to Assess Visual Spear; Negative Pupillary Size Unremarkable (Dilated) or Smaller than Contralateral
Cranial Nerve II: Right Eye: Pupillary Reactivity Unremarkable and Unable to Assess Visual Spear; Negative Pupillary Size Unremarkable (Dilated) or Smaller than Contralateral
Cranial Nerves III, IV, : Extraocular Movement: Absent Doll's Eyes
Cranial Nerve V: Facial Sensation: Unable to Assess
Cranial Nerve VII: Facial Symmetry: Reduced (On the right)
Cranial Nerve VIII: Hearing: Unremarkable Hearing to Normal Conversational Volume
Cranial Nerves IX, X: Palate Movement: Unable to Assess
Cranial Nerve XI: Shoulder Shrug: Other (Unable to assess direct)
Cranial Nerve XII: Tongue Protusion: Midline
Muscle Strength, Overall: Full Throughout
Muscle Bulk & Tone: Bulk Unremarkable and Tone Unremarkable
Pronator Drift: No Drift in Upper Extremities
Deep Tendon Reflexes: Unremarkable Throughout
Cold Sensation: Unremarkable
Vibration Sensation: Unremarkable
Touch Sensation: Unremarkable
Coordination: [id number]-[id number] Testing Unremarkable
Babinski Sign: Absent Bilaterally
Gait & Station: Romberg Test Negative
Medications
-
Active Medications
Generic Name Dose Route Start Last Admin
Trade Name Freq PRN Reason Stop Dose Admin
Acetaminophen 650 mg 11/03/23 18:45
Acetaminophen 325 Mg Tablet PO 12/01/23 18:44
Q4HPRN PRN
CAMPBELL, mild pain, or temp >100.4F
Atorvastatin Calcium 40 mg 11/03/23 18:45 11/03/23 19:48
Atorvastatin (Lipitor) 40 Mg Tablet PO 12/01/23 18:44 Not Given
QPM GIOVANI
Baclofen 20 mg 11/03/23 22:00 11/04/23 07:14
Baclofen 20 Mg Tablet PO 12/01/23 21:59 Not Given
TID GIOVANI
Bictegravir/Emtricitabine/Tenofovir 1 tablet 11/04/23 08:00 11/04/23 07:13
Biktarvy (Bictegravir/Emtricitabine/Tenofovir) Tablet PO 12/02/23 07:59 Not Given
DAILY GIOVANI
Cetirizine HCl 10 mg 11/04/23 08:00 11/04/23 07:14
Cetirizine Hcl 10 Mg Tablet PO 12/02/23 07:59 Not Given
DAILY GIOVANI
Dextrose 12.5 grams 11/04/23 01:00
Dextrose 50% (0.5 Grams/Ml) 50 Ml Syringe IV 12/02/23 00:59
[id number] PRN
hypoglycemia
Protocol
Escitalopram Oxalate 20 mg 11/04/23 08:00 11/04/23 07:14
Escitalopram 20 Mg Tablet PO 12/02/23 07:59 Not Given
DAILY GIOVANI
Gabapentin 300 mg 11/03/23 20:00 11/04/23 07:14
Gabapentin 300 Mg Capsule PO 12/01/23 19:59 Not Given
BID GIOVANI
Glucagon 1 mg 11/04/23 01:00
Glucagon 1 Mg Vial IM 12/02/23 00:59
PRN PRN
hypoglycemia - no IV access
Protocol
Dextrose/Sodium Chloride 1,000 mls @ 100 mls/hr 11/03/23 19:00 11/04/23 05:13
D5/0.9% Sodium Chloride IV 1,000 mls
.Q10H GIOVANI Administration
Piperacillin Sod/Tazobactam Sod 3.375 gram in 50 mls @ 100 mls/hr 11/04/23 00:00 11/04/23 05:13
Zosyn IV 50 mls
Q6H GIOVANI Administration
Labetalol HCl 10 mg 11/03/23 18:45
Labetalol Hcl 5 Mg/1 Ml (20 Mg/4 Ml) Injection IV 12/01/23 18:44
Q6HPRN PRN
BP > 180/105 mmHg
Lacosamide 150 mg 11/03/23 20:00 11/04/23 07:28
Lacosamide (10 Mg/Ml) 200 Mg/20 Ml Vial IV 11/17/23 19:59 150 mg
Q12 GIOVANI Administration
Levetiracetam 1,000 mg 11/03/23 20:00 11/04/23 07:31
Levetiracetam (100 Mg/Ml) 500 Mg/5 Ml Vial IV 12/01/23 19:59 1,000 mg
Q12 GIOVANI Administration
Lorazepam 1 mg 11/04/23 08:00 11/04/23 08:15
Lorazepam 2 Mg/Ml Vial IV 12/01/23 19:57 1 mg
Q6HPRN PRN Administration
seizure
Sodium Chloride 0 flush 11/03/23 19:00
Sodium Chloride 0.9% (Flush) Syringe IV 12/01/23 18:59
PER PROTOCOL GIOVANI
Sodium Chloride 0.5 ml 11/04/23 08:26 11/04/23 08:15
Nss (Pf) 10 Ml Vial For Ativan 1mg Dose IV 12/01/23 19:57 0.5 ml
Q6HPRN PRN Administration
IV LORAZEPAM DILUTION
Home Medications
�Medication �Instructions �Recorded
acetaminophen 325 mg tablet 650 mg PO Q6HPRN PRN mild 06/12/22
pain/temp>100.4
aspirin 81 mg tablet,delayed 81 mg PO DAILY Blood clot 06/12/22
release prevention/tx
pldddyc-olkbnepzjptjj-ckbpxidc 250 2 tab PO DAILYPRN PRN severe 06/12/22
mg-250 mg-65 mg tablet (Excedrin headache
Migraine)
baclofen 20 mg tablet 20 mg PO TID Muscle spasms 06/12/22
bictegravir 50 mg-emtricitabine 1 tab PO DAILY HIV 06/12/22
200 mg-tenofovir alafenam 25 mg
tablet (Biktarvy)
bisacodyl 10 mg rectal suppository 10 mg WA DAILYPRN PRN if MOM 06/12/22
(Dulcolax (bisacodyl)) ineffective
cetirizine 10 mg tablet 10 mg PO DAILY Allergies 06/12/22
hydralazine 25 mg tablet 25 mg PO DAILYPRN PRN sbp>160 06/12/22
and/or dbp>100
lisinopril 10 mg tablet 10 mg PO DAILY Blood pressure 06/12/22
magnesium hydroxide 400 mg/5 mL 30 ml PO DAILY PRN if no BM x 3 06/12/22
oral suspension (Milk of Magnesia) days
multivitamin 1 tab PO DAILY Supplement 06/12/22
omeprazole 20 mg tablet,delayed 20 mg PO DAILY Gastrointestinal 06/12/22
release issue
sodium phosphates 19 gram-7 118 ml WA DAILY PRN if dulcolax 06/12/22
gram/118 mL enema (Fleet Enema) supp ineffective
medroxyprogesterone 150 mg/mL 150 mg IM [id number] Hormonal Agent 10/18/22
intramuscular suspension
metoprolol succinate 25 mg 25 mg PO BID Blood pressure 04/01/23
tablet,extended release 24 hr
levetiracetam 1,000 mg tablet 1,000 mg PO BID #60 tabs 04/03/23
(Keppra)
lorazepam 0.5 mg tablet 0.5 mg PO [id number] PRN increased 04/03/23
anxiety
cyclobenzaprine 10 mg tablet 10 mg PO BID Muscle Spasms 07/24/23
rimegepant 75 mg disintegrating 75 mg PO Q48H migraine 07/24/23
tablet (Nurtec ODT)
atorvastatin 40 mg tablet 40 mg PO QPM High Cholesterol 09/28/23
clonazepam 0.5 mg disintegrating 0.5 mg PO PRN PRN seizure 09/28/23
tablet
clonazepam 2 mg disintegrating 5 mg PO PRN PRN seizure 09/28/23
tablet
gabapentin 300 mg capsule 300 mg PO BID pain 09/28/23
lacosamide 150 mg tablet 150 mg PO BID seizure 09/28/23
prochlorperazine maleate 10 mg 10 mg PO Q1H PRN headache 09/28/23
tablet
carbamide peroxide 6.5 % ear drops 5 drp RIGHT EAR BID 11/03/23
(Debrox)
escitalopram oxalate 20 mg tablet 20 mg PO DAILY 11/03/23
(Lexapro)
Past History
Past History
ED Past Medical History: CVA, HTN, Seizures, Psychiatric (Anxiety, depression) and Other (HIV positive, Migraines, PNA, )
ED Past Surgical History: Cardiac (pacer)
Social History
Tobacco: Non-smoker
Alcohol: None
Drug: None
Living: correction
[2023-11-04 08:59] LABS: Glycohemoglobin (HgbA1c) 5.5 % (4.0-5.6)
--- NOTE | 2023-11-04 10:21 | PHA.KIN.UP ---
Assessment / Plan
- Assessment
Renal Function: Stable
WBC's are: WNL
In the past 24 hrs, patient has been: Afebrile
- Plan: Continue Present Regimen
Continue: vancomycin 1000mg q12h - starting 11/03 1800
No level ordered at this time: consider in the upcoming days
- Follow Up
Pharmacy will continue to follow.
FollowUp Pharmacokinetics Note
- -
Patient Age: 53
Patient Sex: Female
Indication: Genito-Urinary Tract
Requesting Provider: Dr Marie
Pertinent Antimicrobial Allergies:
No Known allergies
Height / Weight:
Height 5 ft 5 in
Actual Weight 78.8 kg
Pertinent Past Medical History: TNK adminsitered for ischemic stroke 11/02; HIV; seizures
- Vital Signs / Lab Results
Temp Pulse Resp BP Pulse Ox
98.8 F 82 10 146/84 99
11/04/23 07:20 11/04/23 10:15 11/04/23 10:15 11/04/23 10:15 11/04/23 10:15
Lab Results - Hematology
11/03/23 11/04/23
17:42 03:44
WBC 10.4 9.3
Lab Results - Chemistry
11/03/23 11/04/23
17:42 03:44
BUN 11 8
Creatinine 0.8 0.7
Estimated Creat Clear 99
Albumin 4.3 4.1
Lab Results - Urine
11/03/23 11/03/23 11/03/23
21:40 21:40 21:40
Urine Nitrite (Reflex) Negative Cancelled
Leukocyte Esterase Rfl 2+ A Cancelled
Ur Squamous Epith Cells 26-30
Concomitant Antimicrobials:
--- NOTE | 2023-11-04 11:39 | PTCARENOTE ---
pt assessment unchanged. remains agitated and restless at times. uncooperative. neuro status unchanged. remains aware.
--- NOTE | 2023-11-04 11:46 | CON.INTV ---
Addendum entered and electronically signed by Dillan Ruggiero MD 11/04/23 12:43:
Reviewed below. Patient seen and examined independently from the resident. Agree with resident plan.
History present obtained from the chart. Some history obtained through discussion with the daughter by phone with the help of critical care nursing. Patient found unresponsive. Stroke was suspected. Stroke alert called, initial imaging without
acute findings. TNK was administered. Patient with severe agitation throughout the night requiring restraints, spitting, difficult to control. Did seem to respond to Ativan therapy
Family history, social history, review of systems, allergies as below.
Physical exam is limited. Patient is on room air. She does have a large neck, narrow posterior pharynx. Cannot assess breath sounds with poor inspiratory effort. She is moving all extremities. There is no obvious rash. She does not follow
commands
Data reviewed
A/P
Moving forward
Continue with supportive care for now. Not sure whether there may have been a true stroke as she does have an old left MCA stroke. Not sure what her baseline mental status is but according to family, she has baseline nonverbal but able to take
pills.
She is difficult with regards to agitation. Reviewed outpatient medications. She is on Ativan and will continue with Ativan as able/needed.
Abnormal urinalysis noted and positive talk screen for marijuana noted.
Continue with Zosyn therapy, await CT imaging.
Consider ID evaluation given her HIV status, as unable to obtain any additional history.
Reviewed with critical care nursing, respiratory care, case management, pharmacy, primary service
TCCT 31 min
Original Note:
Documented by User: Marisol Nobles MD, Resident 11/04/23 12:17
Consultation
Consultation Request
Date/Time Consultation Requested: 11/03/2023 18:45
Date/Time Consultation Performed: 11/04/2023 08:00
Reason for Consultation: Critical care
Medical History
-
Chief Complaint: Change in mental status/unresponsive
History of Present Illness:
This is a 53-year-old female with past medical history of migraines, seizures, hypertension, prior stroke with residual right-sided weakness and dysarthria, pacemaker, GERD who presents to the ED from shelter via EMS for evaluation of change in
mental status/unresponsiveness. She was found in the room to be unresponsive by staff in the shelter, hence she was brought into ED. Stroke alert was called, upon arrival to [facility], afebrile, pulse 66, blood pressure 140/80,
respiratory rate 13, O2 sats 99% on 2 L oxygen. Per ED exam, patient with right-sided facial droop,pupils dilated 8 mm and briskly reactive to light bilaterally with no clear gaze deviation. ED records suggested tenecteplase was given at 17:49.
Evaluation with CT scan of the head showed no evidence for acute intracranial hemorrhage and areas of encephalomalacia involving the left hemisphere, distribution compatible with the old left MCA infarct. We are asked to help from critical care
standpoint.
Past Medical History
Past Medical History: Other (Hypertension, previous CVA, seizures, depression, anxiety, HIV, migraines)
Past Surgical History: Other (Pacemaker)
Social History
Tobacco: Non-smoker
Alcohol: None
Drug: Marijuana
Living: [facility]
Allergies / Home Medications
Allergies
Allergy/AdvReac Type Severity Reaction Status Date / Time
No Known Allergies Allergy Verified 04/01/23 10:16
Home Medications
�Medication �Instructions �Recorded �Confirmed �Last Taken �Type
acetaminophen 325 mg tablet 650 mg PO Q6HPRN PRN mild 06/12/22 11/03/23 Unknown History
pain/temp>100.4
aspirin 81 mg tablet,delayed 81 mg PO DAILY Blood clot 06/12/22 11/03/23 Unknown History
release prevention/tx
aulagms-emizemikeklld-fufxnvdz 250 2 tab PO DAILYPRN PRN severe 06/12/22 11/03/23 Unknown History
mg-250 mg-65 mg tablet (Excedrin headache
Migraine)
baclofen 20 mg tablet 20 mg PO TID Muscle spasms 06/12/22 11/03/23 Unknown History
bictegravir 50 mg-emtricitabine 1 tab PO DAILY HIV 06/12/22 11/03/23 Unknown History
200 mg-tenofovir alafenam 25 mg
tablet (Biktarvy)
bisacodyl 10 mg rectal suppository 10 mg NE DAILYPRN PRN if MOM 06/12/22 11/03/23 Unknown History
(Dulcolax (bisacodyl)) ineffective
cetirizine 10 mg tablet 10 mg PO DAILY Allergies 06/12/22 11/03/23 Unknown History
hydralazine 25 mg tablet 25 mg PO DAILYPRN PRN sbp>160 06/12/22 11/03/23 Unknown History
and/or dbp>100
lisinopril 10 mg tablet 10 mg PO DAILY Blood pressure 06/12/22 11/03/23 Unknown History
magnesium hydroxide 400 mg/5 mL 30 ml PO DAILY PRN if no BM x 3 06/12/22 11/03/23 Unknown History
oral suspension (Milk of Magnesia) days
multivitamin 1 tab PO DAILY Supplement 06/12/22 11/03/23 Unknown History
omeprazole 20 mg tablet,delayed 20 mg PO DAILY Gastrointestinal 06/12/22 11/03/23 Unknown History
release issue
sodium phosphates 19 gram-7 118 ml NE DAILY PRN if dulcolax 06/12/22 11/03/23 Unknown History
gram/118 mL enema (Fleet Enema) supp ineffective
medroxyprogesterone 150 mg/mL 150 mg IM [id number] Hormonal Agent 10/18/22 11/03/23 Unknown History
intramuscular suspension
metoprolol succinate 25 mg 25 mg PO BID Blood pressure 04/01/23 11/03/23 Unknown History
tablet,extended release 24 hr
levetiracetam 1,000 mg tablet 1,000 mg PO BID #60 tabs 04/03/23 11/03/23 Unknown Rx
(Keppra)
lorazepam 0.5 mg tablet 0.5 mg PO [id number] PRN increased 04/03/23 11/03/23 Unknown History
anxiety
cyclobenzaprine 10 mg tablet 10 mg PO BID Muscle Spasms 07/24/23 11/03/23 Unknown History
rimegepant 75 mg disintegrating 75 mg PO Q48H migraine 07/24/23 11/03/23 Unknown History
tablet (Nurtec ODT)
atorvastatin 40 mg tablet 40 mg PO QPM High Cholesterol 09/28/23 11/03/23 Unknown History
clonazepam 0.5 mg disintegrating 0.5 mg PO PRN PRN seizure 09/28/23 11/03/23 Unknown History
tablet
clonazepam 2 mg disintegrating 5 mg PO PRN PRN seizure 09/28/23 11/03/23 Unknown History
tablet
gabapentin 300 mg capsule 300 mg PO BID pain 09/28/23 11/03/23 Unknown History
lacosamide 150 mg tablet 150 mg PO BID seizure 09/28/23 11/03/23 Unknown History
prochlorperazine maleate 10 mg 10 mg PO Q1H PRN headache 09/28/23 11/03/23 Unknown History
tablet
carbamide peroxide 6.5 % ear drops 5 drp RIGHT EAR BID 11/03/23 11/03/23 Unknown History
(Debrox)
escitalopram oxalate 20 mg tablet 20 mg PO DAILY Mental 11/03/23 11/03/23 Unknown History
(Lexapro) Health/Anxiety
Review of Systems
-
Unable to Obtain full review of systems at this time due to: Patient Non Verbal
Vitals / Labs / Diagnostic Testing
Vital Signs
Temp Pulse Resp BP Pulse Ox
98.7 F 104 17 150/101 98
11/04/23 11:04 11/04/23 11:30 11/04/23 11:30 11/04/23 11:00 11/04/23 11:30
Lab Data
11/04/23 03:44
11/04/23 03:44
Laboratory Results
11/03/23 11/04/23 11/04/23
17:42 03:44 06:00
PT 13.4 14.2 Cancelled
INR 1.02 1.10 Cancelled
APTT 26.8 27.0 Cancelled
Microbiology
11/03/23 22:36 Nose Nasal Screen MRSA (PCR) - Final
MRSA not detected - performed by PCR methodology.
Diagnostic Testing:
Assessment
-
Assessment
CVA/TIA status post TNK 17:49 11/03/2023
Pyuria on urinalysis
Conditions present prior to admission
Seizure, on levetiracetam
CVA, residual R-sided weakness
HTN
GERD
Anxiety, major depressive disorder, recurrent. On lorazepam, escitalopram
HIV on biktarvy
Migraine
Chronic pain syndrome
Iron deficiency anemia
Plan
Patient received TNK at approximately 17:[address] head no evidence for acute intracranial abnormalities
Repeat head CT
Patient agitated, restless, uncooperative. Unable to get MRI at this time
Neuro on board
Urinalysis positive for pyuria
Abx initiated
Urine culture, blood culture pending
Urine drug screen positive for marijuana
Normal ECG on presentation, normal sinus rhythm
Follow blood pressure
Unable to get echo at this time due to combative nature
Seizure precautions
Continue Keppra, lacosamide IV

Documented by User: Dillan Ruggiero MD 11/04/23 12:40
Medical History
Family History
Family History: Unable to Obtain
--- NOTE | 2023-11-04 12:05 | W.PN.HOSP.TC ---
Today's Communication/Plan
-
monitor vitals
see plan
EEG
ativan prn
cw restraints
BP meds when goal is normotension per neurology
unable to get MRI. CT scan in 24hrs per neurology
Assessment / Plan
Assessment / Plan
General: Well Developed
HEENT: NormoCephalic and Anicteric
Respiratory: Clear; No Wheezes or Rales
Cardiac: S1/S2 and Regular Rhythm
GI: Soft and Non Distended
Musculoskeletal: No Edema
Skin: Warm; No Dry or Rash
Neuro: agitated
Psych: Calm
CVA/TIA r/o breakthrough seizures
s/p TNK
serial CT head
MRI, MRA head/neck could not be obtained at this time since patient is agitated and cannot be cleared due to pacemaker
cw neurochecks
permisive HTN
avoid arterial pumcture for 24h
Avoid antiplatelets and anticoagulationj for 24h
statin
LDL 59; A1c 5.5
Neuro consult
Seizure precautions
Cont Keppra, Lacosamide (IV) - as per neurologist
Artivan PRN
EEG
Check urine drug screen + THC
Suspect UTI
follow urine cx
cw abx
Hx of CVA with right hemiparesis and aphasia
hx of seizures
#HIV
Cont bictarvi
#Migraines
#MDD
History of depression and anxiety
currently agitated and on restraints
cw ativan
History of pacemaker
#Essential HTN
COnt home meds after initial 24h monitoring
DVTppx
s/p TNK; when ok with neurology
Full code
POLucero is court appointed guardian for decisions. However per guardian daughter is aware of her history that can be reached at [phone]
I spent a total of 52 minutes with the patient or on the floor. More than 50% of this time involved counseling and coordination of care.
Anticipated Discharge: > 48 hours
Subjective/Interval History
-
Date of Service: November 04, 2023
agitated
Objective Data
-
Labs:
Laboratory Results
11/04/23 11/04/23
03:44 06:00
WBC 9.3
Hgb 12.5
Hct 38.4
Plt Count 208
PT 14.2 Cancelled
INR 1.10 Cancelled
APTT 27.0 Cancelled
Sodium 141 D
Potassium 5.1
Chloride 111 H
Carbon Dioxide 27
BUN 8
Creatinine 0.7
Glucose 116 H
Calcium 9.4
Total Bilirubin 0.5
AST 21
ALT 21
Alkaline Phosphatase 69
Vital Signs:
Vital Signs
Temp Pulse Resp BP Pulse Ox
98.7 F 104 17 150/101 98
11/04/23 11:04 11/04/23 11:30 11/04/23 11:30 11/04/23 11:00 11/04/23 11:30
I&O
11/03/23 11/04/23 11/05/23
06:59 06:59 06:59
Intake Total 1440 / 1540 550 / 550
Output Total 1500 / 1500
Balance -60 / 40 550 / 550
--- NOTE | 2023-11-04 12:19 | EEG.RPT ---
Electroencephalogram Report
Recording
Date of EE11/04/23
Type of EEG: Routine
Length of EEG recordin minutes
Done with Video Recording: Yes
Patient Status: Inpatient
Recording Conditions: Awake, Drowsy and Combative
Hyperventilation Performed: No
Photic Stimulation Performed: Yes
Report
LESS THAN 1 HOUR EEG REPORT
LESS THAN 1 HOUR EEG INTERPRETATION:
Moderately abnormal EEG for age in wakefulness through drowsiness due to triphasic waves and diffuse bihemispheric slowing
CLINICAL CORRELATION:
This study was suggestive of a generalizing process which is most likely secondary to metabolic disturbance causing diffuse cortical dysfunction without focal abnormality. No seizures were recorded.
Clinical correlation is advised.
METHODS:
A 21 channel digitized electroencephalogram (EEG) was performed in the clinical neurophysiology lab. The 10/20 international system of electrode placement was used with ECG and lateral/vertical eye movements recorded. Video was recorded. The
[employer] quantitative review system was utilized.
QUALITY OF STUDY:
Fair
ELECTROENCEPHALOGRAPHER IMPRESSION(S):
Background
Amplitude: Unremarkable
Anterior-Posterior Organization: Fair
Maximum: Theta, usually delta
Asymmetry: None
Sleep
Drowsiness present
Photic Stimulation
Failed to activate the record.
ECG
Normal sinus rhythm
Abnormal EEG activity
Frequent bifrontal predominant, at times generalizing, medium amplitude triphasic waves which occasionally occur in trains lasting up to 1 second and a periodicity of 1 second
--- NOTE | 2023-11-04 13:43 | CM ---
Addendum entered by Ambreen Anderson 11/04/23 14:16:
Patient guardian spoke with CM and patient son: Mario Blake phone [phone] and daughter Adrienne Craig [phone]. Per Guardian both children can have information at any time. Patient guardian requested CM send referrals to additional SNF
options as he does not want patient to return to [facility] due to lab results. CM placed Guardianship decree on chart. CM will send referrals to facilities in [facility] at patient guardian request. CM updated supervisory examiner of concerns from past
fdc placements per guardian. Patient guardian and family to discuss Code status and plan of care.
Plan; SNF placement
Original Note:
Patient seen at bedside, Patient has guardian Justinallan Diaz [phone]. Justin to send copy of decree to , [email or web address] : Guardianship appointed on March 2021. Patient is from [facility] and is a LTC patient there. Patient
has been at [facility] since 2021. CM will call to facility to confirm prior level of care. CM will confirm plan of care and continue to follow for discharge planning needs. Patient has daughter and son both present in room, Patient guardian to
come and discuss plan of care with patient family and physician. CM will continue to follow for discharge planning needs.
Plan; return to [facility]
--- NOTE | 2023-11-04 14:57 | CON.ID ---
Consultation
-
Date/Time Consultation Requested: 11/04/2023 1336
Date/Time Consultation Performed: 11/04/2023 1445
Requesting Provider: Dr. Barth
Performing Provider: Dr. Mack
Reason for Consultation: UTI; Hx HIV
Chief Complaint / Past History
History of Present Illness
Ana Blake is a 53-year-old female being evaluated at the request of Dr. Barth in regards to HIV and possible PNA. History is obtained from chart review along with history obtained from the patient's adult children who are at the bedside. The
patient has a significant past medical history of CVA resulting in aphasia, and could not provide any history for me.
The patient currently resides at [facility] and presented to [facility] via EMS on 11/02 secondary to change in mental status and unresponsiveness. According to reviewed notes the patient was noted to be normal at around 1400
yesterday, but staff reported her room 'smelled like smoke' and confiscated a vape from her. Around 161, the patient's roommate called the staff to check on the patient and she was found essentially unresponsive. EMS was called and the patient
was transported to the emergency room. Workup in the ER did not reveal a leukocytosis, but urinalysis revealed pyuria (but also significant squamous epithelial cells) and the patient has been started on antibiotics.
The patient's children report that she has an underlying history of HIV, diagnosed in 2019. They are unsure of prior viral load or CD4 counts. They do know that she is on Biktarvy.
Past History
Additional Past Medical History:
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
HTN
Seizure disorder
Anxiety/depression
Migraines
HIV (Dx: 2019. Unknown VL/CD4. On Biktarvy)
Additional Past Surgical History:
PPM placement
Allergy History:
No Known Allergies Allergy (Verified 04/01/23 10:16)
Medications Reviewed: Yes
Current Antibiotics:
Biktarvy
Zosyn 3.375 g IV every 6 hours
Vancomycin (dosed per pharmacy)
Social History
Tobacco: Non-Smoker
Alcohol: None
Drug: None
Living: [facility]
Employment: Disabled
Family History
Family History: Not Pertinent
Review of Systems
Vital Signs
Temp Pulse Resp BP Pulse Ox
98.7 F 84 12 139/93 99
11/04/23 11:04 11/04/23 14:30 11/04/23 14:30 11/04/23 14:00 11/04/23 14:30
Physical Exam
Physical Exam
Constitutional: No Acute Distress, Comfortable, Chronically Ill and Non-toxic
Eyes: Pupils Equal, Pupils Round, No Conjunctival Hemorrhage and Sclera Anicteric
Oral: No Thrush and No Ulcers
Cardiovascular: Regular Rate, S1/S2 and S3/S4
Pulmonary: Clear and Wheezes; Negative Rales or Rhonchi
Gastrointestinal: Soft, Non Tender, Non Distended and Normal Bowel Sounds
Extremities: Negative Edema, Cyanosis or Erythema
Skin: Warm and Dry; Negative Rash or Jaundice
Psychological: Calm and Agitated (Intermittent)
Lab / Diagnostic Study Results
11/04/23 03:44
11/04/23 03:44
Abs Immat Gran (auto) 0.0 10^3/uL (0-0.05) 11/04/23 03:44
Absolute Neuts (auto) 6.8 10^3/uL (1.4-6.5) H 11/04/23 03:44
Absolute Lymphs (auto) 1.7 10^3/uL (1.2-3.4) 11/04/23 03:44
Absolute Monos (auto) 0.6 10^3/uL (0.1-0.6) 11/04/23 03:44
Absolute Basos (auto) 0.0 10^3/uL (0-0.2) 11/04/23 03:44
Immature Gran % 0.2 % (0-0.5) 11/04/23 03:44
Neutrophils % 72.9 % (42.2-75.2) 11/04/23 03:44
Lymphocytes % 17.9 % (20.5-51.1) L 11/04/23 03:44
Monocytes % 6.2 % (1.7-9.3) 11/04/23 03:44
Eosinophils % 2.5 % (0-6) 11/04/23 03:44
Basophils % 0.3 % (0-2) 11/04/23 03:44
PT Cancelled 11/04/23 06:00
INR Cancelled 11/04/23 06:00
Ur Squamous Epith Cells 26-30 /LPF (Few) 11/03/23 21:40
Microbiology Results
Micro:
11/03/23 22:36 Nasal Screen MRSA (PCR) - Final
Nose MRSA not detected - performed by PCR methodology.
11/03/23 22:36 Blood Culture - Pending
Blood/Venous
11/03/23 21:40 Urine Culture - Pending
Urine
11/03/23 21:13 MRSA Screen - Pending
Nose
Imaging:
11/03/2023 CXR (portable): No acute infiltrate noted. (Film personally viewed)
Assessment / Plan
HIV
Encephalopathy
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
HTN
Seizure disorder
Anxiety/depression
Migraines
HIV (Dx: 2020. Unknown VL/CD4. On Biktarvy)
Recommendations:
Patient afebrile since admission.
Urine culture pending. Urinalysis noted to be contaminated with squamous cells bringing into question the validity of culture.
Discontinue further vancomycin.
Continue with empiric Zosyn for today.
Patient currently NPO. Discontinue further Biktarvy. Will resume when patient more clinically stable. Will attempt to obtain old records, including viral load and CD4 count from nursing facility.
Care Review
Plan reviewed with: Nurse
--- NOTE | 2023-11-04 16:39 | PTCARENOTE ---
pt thrashing in bed, yelling out 'go, go, go' pt encouraged to void- voided approx 200 cc yellow urine. bladder scanned for 400cc, straight cathed for 300 cc yellow urine. pt much more relaxed. Ativan given per order for ct. pt daughter at bedside,
updated. turned and repositioned, attempted oral care, pt biting down, yelling out. ivf continue, purewick in place. remains in restraints for protective intervention. pt agitated and combative at times, otherwise resting comfortably. assessment
unchanged further. remains in nsr on room air. all safety precautions in place.
[2023-11-04] MEDS: LIPITOR PO (16:47)
[2023-11-04] MEDS: THIAMINE INJECTION 100 MG IV (17:15)
--- NOTE | 2023-11-04 21:44 | PTCARENOTE ---
Pt received agitated, thrashing in bed. Uncooperative with care. Remains in 4 point restraints for protective intervention. Assessment as charted. Pt uncooperative with NIH. Will continue to monitor.
[2023-11-05] VITALS (23 sets, daily range): BP systolic 134–162; BP diastolic 71–126; PULSE 97; O2SAT 100; BMI 28.7
[2023-11-05] MEDS: D5/0.9% SODIUM CHLORIDE 1000 IV ×2 (03:31→13:58)
[2023-11-05] MEDS: ATIVAN 1 MG IV ×3 (03:49→12:18)
[2023-11-05] MEDS: NSS (PRESERVATIVE FREE) 0.5 ML IV ×3 (03:51→12:19)
[2023-11-05 04:28] LABS: % Basophils 0.5 % (0-2); % Eosinophils 3.4 % (0-6); % Immature Granulocytes 0.3 % (0-0.5); % Lymphocytes 24.8 % (20.5-51.1); % Monocytes 7.4 % (1.7-9.3); % Neutrophils 63.6 % (42.2-75.2); Absolute Eosinophils 0.2 10^3/uL (0-0.7); Absolute Lymphocytes 1.6 10^3/uL (1.2-3.4); Absolute Monocytes 0.5 10^3/uL (0.1-0.6); Absolute Neutrophils 4.1 10^3/uL (1.4-6.5); Hematocrit 30.5 % (37.0-47.0); Hemoglobin 10.4 g/dL (12.0-16.0); Mean Corp Hgb Conc. 34.1 g/dL (33.0-37.0); Mean Corpuscular Hgb 32.3 pg (27.0-31.0); Mean Corpuscular Volume 94.7 fL (81.0-99.0); Mean Platelet Volume 9.9 fL (7.4-10.4); Nucleated Red Blood Cells % 0 %; Platelet Count 156 10^3/uL (130-400); Red Blood Cell Count 3.22 10^6/uL (4.20-5.40); Red Cell Dist. Width 11.9 % (11.5-14.5); White Blood Cell Count 6.5 10^3/uL (4.8-10.8)
[2023-11-05 05:00] LABS: Blood Urea Nitrogen 8 mg/dl (7-17); Calcium 8.8 mg/dl (8.4-10.2); Carbon Dioxide 25 mmol/L (22-30); Chloride 113 mmol/L (98-107); Estimated Creatinine Clearance 99 ml/min; Glucose 87 mg/dl (70-99); Potassium 3.9 mmol/L (3.5-5.1); Sodium 140 mmol/L (135-145); eGFR > 60.00
--- NOTE | 2023-11-05 05:03 | PTCARENOTE ---
Pt continues to be agitated at times, thrashing in bed, attempt to bite staff when mouth care attempted. Med as needed with ativan prn. Pt has not voided this shift. Bladder scan reveals 450ml. Discussed with FRENCH FOLDER and will not straight cath at this
time per FRENCH FOLDER. Assessment unchanged.
[2023-11-05] MEDS: ZOSYN 50 IV (05:08)
--- NOTE | 2023-11-05 06:13 | W.PN.INTV ---
Today's Communication / Plan
Recommendations
Intermittent Ativan as needed
Attempt to restart oral medications as able
Labetalol IV as needed
If no improvement in mental status, may require Dobbhoff tube to administer medications
Okay for transfer out of ICU. Once transferred, we will sign off. Please call with questions
Assessment
-
Assessment
CVA/TIA status post TNK 17:49 11/03/2023
Pyuria on urinalysis
Conditions present prior to admission
Seizure, on levetiracetam
CVA, residual R-sided weakness
HTN
GERD
Anxiety, major depressive disorder, recurrent. On lorazepam, escitalopram
HIV on biktarvy
Migraine
Chronic pain syndrome
Iron deficiency anemia
Plan
At this time, patient is stable from a neurological standpoint
Follow-up head CT without acute findings. Unable to obtain brain MRI due to severe agitation
Initial CT head no evidence for acute intracranial abnormalities
Patient agitated, restless, uncooperative.
Receiving Ativan as needed, last dose 10:30 PM
Unable to take oral medications consistently
Moving forward
Continue with antibiotics
Urinalysis positive for pyuria
Urine culture, blood culture pending
Urine drug screen positive for marijuana
Normal ECG on presentation, normal sinus rhythm
Follow blood pressure
Unable to get echo at this time due to combative nature
Seizure precautions
Continue Keppra, lacosamide IV
If unable to take p.o. meds, may need to place Dobbhoff tube although I do not think this is possible, patient would like to be removed
I had extensive discussion with power of food service hotel runner/Court-appointed POA yesterday (Justin). He is keeping in touch with both children.
Discussed that it would be reasonable for DNR/DNI status. Son/daughter and POA reviewed poor quality of life. Son and daughter also confirmed that patient had requested DNR status in the past. POA is aware of this. Ongoing discussion between POA
and family
Okay to transfer out of ICU from critical care standpoint. We will sign off. Please call with questions
Subjective Dataa
Subjective Data
Date of Service:
Date of Service: November 05, 2023
Subjective:
Patient remains agitated intermittently throughout the night. Last dose of Ativan around 10:[address] head with no acute findings
Objective Data
Data Reviewed
Vital Signs / I&O / Oxygen:
Vital Signs
Temp Pulse Resp BP Pulse Ox
99.2 F 72 12 158/77 100
11/05/23 03:28 11/05/23 05:00 11/05/23 05:00 11/05/23 05:00 11/05/23 05:00
Intake and Output
11/03/23 11/04/23 11/05/23
06:59 06:59 06:59
Intake Total 1440 / 1540 2400 / 2400
Output Total 1500 / 1500 900 / 900
Balance -60 / 40 1500 / 1500
SaO2 100
Nasal Cannula flow liters per 2
minute
Physical Exam
General: Comfortable
HEENT: Normocephalic and Anicteric
Cardiovascular: S1-S2, Regular Rhythm, Murmur (n) and Rub
Respiratory: Wheeze (n), Crackles (n), Rhonchi (n) and Other (Poor inspiratory effort)
GI: Soft, Non Distended and Non Tender
Neurology: Lethargic (Moves all extremities, requiring restraints)
Skin: Cyanosis (n), Jaundice (n) and Rash (n)
Labs/Micro/Reports
Lab Data
11/05/23 03:28
11/05/23 03:28
Microbiology
11/03/23 22:36 Blood/Venous Blood Culture - Preliminary
No Growth in 24 hours- Final report to follow
11/03/23 22:36 Nose Nasal Screen MRSA (PCR) - Final
MRSA not detected - performed by PCR methodology.
[2023-11-05] MEDS: LEXAPRO PO (07:35)
[2023-11-05] MEDS: KEPPRA 1000 MG IV (07:35)
[2023-11-05] MEDS: VIMPAT 150 MG IV (07:36)
[2023-11-05] MEDS: THIAMINE INJECTION 100 MG IV (07:36)
[2023-11-05] MEDS: LIORESAL PO (07:36)
[2023-11-05] MEDS: ZYRTEC PO (07:37)
--- NOTE | 2023-11-05 08:00 | PTCARENOTE ---
Patient received from impregnator and drier, presents as assessed. Patient is alert, oriented to person only. Frequently yelling out 'go, go, go, go' and 'I want to go home', patient is unablle to reorient and redirect. Emotional support provided. Pt
maintains NSR on the monitor. Purewick in place. Abdomen soft, non-tender. Patient resting in bed, offers no complaints.
--- NOTE | 2023-11-05 08:37 | W.PN.ID1 ---
Date of Service
Date of Service: November 05, 2023
Today's Communication
Discontinue Zosyn. Continue to hold Biktarvy. Await faxed records from nursing facility
Assessment / Plan
HIV
Encephalopathy
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
HTN
Seizure disorder
Anxiety/depression
Migraines
HIV (Dx: 2020. Unknown VL/CD4. On Biktarvy)
Recommendations:
Patient afebrile since admission. WBC normal. Repeat urine culture pending, but doubt UTI present.
Vancomycin previously discontinued.
Discontinue further Zosyn.
Continue to hold Biktarvy while patient remains ill. Once clinically stable and tolerating PO's consistently, can resume therapy.
Nurse spoke with facility yesterday to send over any info re: HIV VL/CD4. No information received thus far.
����������������������������������������������������������
Chief Complaint
-: Other (HIV)
Subjective / Review of Systems
Review of Systems: No Fever
Vital Signs / Physical Exam
Vital Signs
Vital Signs
Temp Pulse Resp BP Pulse Ox
98.9 F 72 12 158/77 100
11/05/23 07:52 11/05/23 05:00 11/05/23 05:00 11/05/23 05:00 11/05/23 05:00
Physical Exam
Constitutional: Comfortable, Chronically Ill and Non-toxic
Eyes: Sclera Anicteric
Cardiovascular: S1/S2; Negative S3/S4
Pulmonary: Non Labored
Gastrointestinal: Soft and Non Tender
Extremities: Negative Edema, Cyanosis or Erythema
Neurological: Awake
Psychological: Confused and Agitated
Objective Data
Lab Data
Lab Results
11/05/23 03:28
11/05/23 03:28
PT Cancelled 11/04/23 06:00
INR Cancelled 11/04/23 06:00
APTT Cancelled 11/04/23 06:00
Estimated Creat Clear 99 ml/min 11/05/23 03:28
Total Bilirubin 0.5 mg/dl (0.2-1.3) 11/04/23 03:44
AST 21 U/L (14-36) 11/04/23 03:44
ALT 21 U/L (0-35) 11/04/23 03:44
Alkaline Phosphatase 69 U/L (38-126) 11/04/23 03:44
Most recent labs reviewed.
Micro Results:
11/03/23 22:36 Blood Culture - Preliminary
Blood/Venous No Growth in 24 hours- Final report to follow
11/03/23 22:36 Nasal Screen MRSA (PCR) - Final
Nose MRSA not detected - performed by PCR methodology.
11/03/23 21:40 Urine Culture - Pending
Urine
Imaging:
11/03/2023 CXR (portable): No acute infiltrate noted. (Film personally viewed)
--- NOTE | 2023-11-05 09:50 | PTOTSP ---
Speech Therapy Assessment
Very limited assessment given agitation and limited oral trials consisting only of 2 tsp trials of applesauce. Mildly slow AP transfer/swallow onset but without gross signs of aspiration.
Recommend
1. Cautious initiation of oral diet - IDDSI 4 (pureed) and Moderately Thick Liquids by teaspoon.
2. 1:1 Supervision
3. Watch for swallow
4. Aspiration Precautions.
5. Given agitation and refusals, risk for insufficient oral intake is high.
6. ST will follow to ensure diet tolerance and modify as needed.
7. Not appropriate for ARHP given current agitation
--- NOTE | 2023-11-05 09:51 | W.PN.NEURO.1 ---
Today's Communication / Plan
-
Check EEG, completed
Continue lacosamide
Continue levetiracetam
Attempt to avoid additional sedative agents if possible
Neuro Assessment/Plan
Assessment
IMPRESSIONS/RECOMMENDATIONS:
Abrupt change in mental status in a patient with prior history of seizures, HIV infection, stroke, and suggestion of recent vaping of a substances
Differential diagnosis includes toxic metabolic encephalopathy, recurrent seizures, not suggested by EEG performed
Plan
Check EEG, completed
Continue lacosamide
Continue levetiracetam
Attempt to avoid additional sedative agents if possible
Likely too late for urine drug screen
Provide thiamine
Will continue to follow patient.
Subjective/Objective
Subjective Data
Date of Service: November 05, 2023
Patient unable to provide her own medical history
Objective Data
Vital Signs
Temp Pulse Resp BP Pulse Ox
37.2 C 74 13 162/101 100
11/05/23 07:52 11/05/23 09:00 11/05/23 09:00 11/05/23 09:00 11/05/23 09:00
Lab Results
11/05/23 03:28
11/05/23 03:28
PT Cancelled 11/04/23 06:00
INR Cancelled 11/04/23 06:00
APTT Cancelled 11/04/23 06:00
Sodium 140 mmol/L (135-145) 11/05/23 03:28
Potassium 3.9 mmol/L (3.5-5.1) 11/05/23 03:28
BUN 8 mg/dl (7-17) 11/05/23 03:28
Glucose 87 mg/dl (70-99) 11/05/23 03:28
Calcium 8.8 mg/dl (8.4-10.2) 11/05/23 03:28
LDL Cholesterol, Calc 59 mg/dl 11/04/23 03:44
Ur Buprenorphine Cancelled 11/03/23 21:40
Ur Buprenorphine Negative (Negative) 11/03/23 21:40
Patient Allergies
No Known Allergies Allergy (Verified 04/01/23 10:16)
Review of Systems
-
Unable to obtain full review of systems at this time due to: Aphasia
History Source: Patient
All other systems: Reviewed and negative
Physical Exam
-
General: No Apparent Distress and Appears Stated Age
Eyes: Round OU, [place] Conjunctivae and No Ptosis; Negative Able to visualize OU
HEENT: Anicteric and Moist Mucous Membranes
Neck: Full Range of Motion
Respiratory: No Dyspnea
Cardiac: No JVD
GI: Non-distended
Extremities: No Clubbing, No Cyanosis and No Edema
Psych: Unable to Assess
Extended Neurological Exam
Mood & Affect: Unable to Assess
Attention Span & Concentration: Awake, Alert, Interactive and Other (in 4 point restraints)
Memory: Unable to Assess
Tremor: Hand Tremor Absent and Head Tremor Absent
Involuntary Movement: None
Speech: Mute
Cranial Nerve II: Left Eye: Pupillary Size Unremarkable and Unable to Assess Visual Spear
Cranial Nerve II: Right Eye: Pupillary Size Unremarkable and Unable to Assess Visual Spear
Cranial Nerves III, IV, : Extraocular Movement: Absent Doll's Eyes
Cranial Nerve V: Facial Sensation: Unable to Assess
Cranial Nerve VII: Facial Symmetry: Reduced (On the right)
Cranial Nerve VIII: Hearing: Unremarkable Hearing to Normal Conversational Volume
Cranial Nerves IX, X: Palate Movement: Unable to Assess
Cranial Nerve XI: Shoulder Shrug: Other (Unable to assess directly)
Muscle Strength, Overall: Reduced on Right
Muscle Bulk & Tone: Increased Tone (Right upper and lower extremity)
Pronator Drift: Unable to Assess
Coordination: Unable to Assess
Gait & Station: Unable to Assess
Data Reviewed
-
Labs: Report Reviewed
Reviewed with: Nurse
Old Records: Summarized
Past History
Past History
ED Past Medical History: CVA, HTN, Seizures, Psychiatric (Anxiety, depression) and Other (HIV positive, Migraines, PNA, )
ED Past Surgical History: Cardiac (pacer)
Social History
Tobacco: Non-smoker
Alcohol: None
Drug: None
Living: alf
Medications
-
Medications:
Generic Name Dose Route Start Last Admin
Trade Name Freq PRN Reason Stop Dose Admin
Acetaminophen 650 mg 11/03/23 18:45
Acetaminophen 325 Mg Tablet PO 12/01/23 18:44
Q4HPRN PRN
CAMPBELL, mild pain, or temp >100.4F
Atorvastatin Calcium 40 mg 11/03/23 18:45 11/04/23 16:47
Atorvastatin (Lipitor) 40 Mg Tablet PO 12/01/23 18:44 Not Given
QPM GIOVANI
Baclofen 20 mg 11/03/23 22:00 11/05/23 07:36
Baclofen 20 Mg Tablet PO 12/01/23 21:59 Not Given
TID GIOVANI
Cetirizine HCl 10 mg 11/04/23 08:00 11/05/23 07:37
Cetirizine Hcl 10 Mg Tablet PO 12/02/23 07:59 Not Given
DAILY GIOVANI
Dextrose 12.5 grams 11/04/23 01:00
Dextrose 50% (0.5 Grams/Ml) 50 Ml Syringe IV 12/02/23 00:59
[id number] PRN
hypoglycemia
Protocol
Escitalopram Oxalate 20 mg 11/04/23 08:00 11/05/23 07:35
Escitalopram 20 Mg Tablet PO 12/02/23 07:59 Not Given
DAILY GIOVANI
Gabapentin 300 mg 11/03/23 20:00 11/04/23 07:14
Gabapentin 300 Mg Capsule PO 12/01/23 19:59 Not Given
BID GIOVANI
Glucagon 1 mg 11/04/23 01:00
Glucagon 1 Mg Vial IM 12/02/23 00:59
PRN PRN
hypoglycemia - no IV access
Protocol
Dextrose/Sodium Chloride 1,000 mls @ 100 mls/hr 11/03/23 19:00 11/05/23 03:31
D5/0.9% Sodium Chloride IV 1,000 mls
.Q10H GIOVANI Administration
Labetalol HCl 10 mg 11/03/23 18:45
Labetalol Hcl 5 Mg/1 Ml (20 Mg/4 Ml) Injection IV 12/01/23 18:44
Q6HPRN PRN
BP > 180/105 mmHg
Lacosamide 150 mg 11/03/23 20:00 11/05/23 07:36
Lacosamide (10 Mg/Ml) 200 Mg/20 Ml Vial IV 11/17/23 19:59 150 mg
Q12 GIOVANI Administration
Levetiracetam 1,000 mg 11/03/23 20:00 11/05/23 07:35
Levetiracetam (100 Mg/Ml) 500 Mg/5 Ml Vial IV 12/01/23 19:59 1,000 mg
Q12 GIOVANI Administration
Lorazepam 1 mg 11/04/23 20:30 11/05/23 07:36
Lorazepam 2 Mg/Ml Vial IV 12/02/23 20:28 1 mg
Q4HPRN PRN Administration
seizure or agitation
Sodium Chloride 0 flush 11/03/23 19:00
Sodium Chloride 0.9% (Flush) Syringe IV 12/01/23 18:59
PER PROTOCOL GIOVANI
Sodium Chloride 0.5 ml 11/04/23 20:33 11/05/23 07:37
Nss (Pf) 10 Ml Vial For Ativan 1mg Dose IV 12/02/23 08:25 0.5 ml
Q4HPRN PRN Administration
IV LORAZEPAM DILUTION
Thiamine HCl 100 mg 11/04/23 18:00 11/05/23 07:36
Thiamine (100 Mg/Ml) 2 Ml Vial IV 12/02/23 17:59 100 mg
DAILY GIOVANI Administration
--- NOTE | 2023-11-05 11:57 | W.PN.HOSP.TC ---
Today's Communication/Plan
-
Monitor vital signs and see plan
Start pur�ed diet with moderate liquid recommended by speech therapy
Continue with restraints, wean once she is calm
Ativan as needed
The patient continues to be agitated might need psychiatry evaluation
Neuro to see
POA updated
Continue with antiepileptics
restart PO meds once tolerating PO
Assessment / Plan
Assessment / Plan
General: Well Developed
HEENT: NormoCephalic and Anicteric
Respiratory: Clear; No Wheezes or Rales
Cardiac: S1/S2 and Regular Rhythm
GI: Soft and Non Distended
Musculoskeletal: No Edema
Neuro: agitated,aphasia
Psych: agitated
CVA/TIA r/o breakthrough seizures
s/p TNK
serial CT head neg for acute findings
MRI, MRA head/neck could not be obtained at this time since patient is agitated and cannot be cleared due to pacemaker. per neurology no further need as CT was done and was neg
cw neurochecks
statin when able
neurology following
Seizure precautions
Cont Keppra, Lacosamide (IV) - as per neurologist
Artivan PRN
EEG without seizure
Check urine drug screen + THC
unclear what driven patient's symptoms
History of depression and anxiety
currently agitated and on restraints
cw ativan as needed
given her agitation she is high risk of pulling things; on restraints
seen by speech; ok for pureed and mod thick liq
Suspect UTI
urine cx contaminant
dc abx and monitor
Hx of CVA with right hemiparesis and aphasia
hx of seizures
#HIV
hold biktarvy per ID
#Migraines
#MDD
History of pacemaker
#Essential HTN
cw labetalol
restart PO meds once able to tolerate PO
DVTppx
s/p TNK; when ok with neurology
Full code
JESSA is court appointed guardian for decisions. However per guardian daughter is aware of her history that can be reached at [phone]
ICU attending had extensive discussion with power of regulator assembler on this hospitalization. Power of regulator assembler and patient son and daughter will be reviewing and will decide on CODE STATUS.
11/04:-Spoke with patient guardian who is JESSA and will speak with patient family again today.
I spent a total of 51 minutes with the patient or on the floor. More than 50% of this time involved counseling and coordination of care.
Anticipated Discharge: > 48 hours
Subjective/Interval History
-
Date of Service: November 05, 2023
Continues to be agitated
Objective Data
-
Labs:
Laboratory Results
11/05/23
03:28
WBC 6.5
Hgb 10.4 L
Hct 30.5 L
Plt Count 156 D
Sodium 140
Potassium 3.9
Chloride 113 H
Carbon Dioxide 25
BUN 8
Creatinine 0.7
Glucose 87
Calcium 8.8
Vital Signs:
Vital Signs
Temp Pulse Resp BP Pulse Ox
98.9 F 69 14 143/87 100
11/05/23 07:52 11/05/23 11:00 11/05/23 11:00 11/05/23 11:00 11/05/23 11:00
I&O
11/04/23 11/05/23 11/06/23
06:59 06:59 06:59
Intake Total 1440 / 1540 2500 / 2600 500 / 500
Output Total 1500 / 1500 900 / 1200 300 / 300
Balance -60 / 40 1600 / 1400 200 / 200
--- NOTE | 2023-11-05 12:00 | PTCARENOTE ---
Patient continues with intermittent agitation. Son at bedside. Emotional support provided. Assessment largely unchanged.
[2023-11-05] MEDS: APRESOLINE 5 MG IV (12:19)
[2023-11-05] MEDS: TYLENOL 650 MG PO ×2 (15:45→19:46)
[2023-11-05] MEDS: LIORESAL 20 MG PO ×2 (15:45→21:43)
--- NOTE | 2023-11-05 16:00 | PTCARENOTE ---
Patient continues with anxious and combative episodes, difficulty communicating needs. When needs are identified and met, patient is calmer. Bladder scan and straight cath preformed as patient endorses having difficulty urinating. Patient is able to
take meds whole in applesauce. Patient resting comfortably in bed.
[2023-11-05] MEDS: ZYPREXA 5 MG IM (16:06)
[2023-11-05] MEDS: STERILE WATER FOR INJECTION 2.10000000000000009 ML IM (16:07)
[2023-11-05] MEDS: NSS (PRESERVATIVE FREE) 10 ML IV (16:49)
[2023-11-05] MEDS: PROTONIX IV 40 MG IV (16:49)
[2023-11-05] MEDS: LIPITOR 40 MG PO (19:46)
--- NOTE | 2023-11-05 20:10 | PTCARENOTE ---
rec'd patient. NIH 14 during bedside handoff. L wrist restraint removed by dayshift RN for patient to eat and use cell phone. pt removed LUE midline. unsuccessful to restart PIV, VAT notified. ICU MARINE ERECTOR notified that patient does not currently have IV
access. L wrist restraint reapplied, all 4 point restraints now applied.
assessment as documented. GCS 13, R arm weakness, severe aphasia/slurring. intermittently follows commands. agitated during care. 4 point soft limb restraints in placed, pt educated on need to maintain safe environment. c/o R leg pain, PRN tylenol
given. SR/ST on monitor. SBP goal <150, PRN hydralazine ordered if needed. + DP pulses. afebrile. denies SOB, on RA, lungs CTA. SpO2 100%. hypoactive bowel sounds, pureed diet ordered. purewick and brief placed. CHG bath completed, pt repositioned.
IMU level of care. call tidwell within reach.
--- NOTE | 2023-11-05 22:07 | VATNOTE ---
Called by brisket puller, pt. removed lt. arm Midline, when restraints were off to eat. Attempted to insert Midline Lt. brachial vein, multiple times, unable to cannulate vein. Basilic vein not visualized. Rt. arm had CVA. Will follow.
[2023-11-06] VITALS (14 sets, daily range): BP systolic 112–162; BP diastolic 81–109; BMI 28.0
[2023-11-06] MEDS: KEPPRA 1000 MG IV ×2 (00:50→07:52)
[2023-11-06] MEDS: VIMPAT 150 MG IV ×2 (00:51→07:53)
[2023-11-06] MEDS: D5/0.9% SODIUM CHLORIDE 1000 IV (00:51)
[2023-11-06 00:56] LABS: % Basophils 0.8 % (0-2); % Eosinophils 5.9 % (0-6); % Immature Granulocytes 0.2 % (0-0.5); % Lymphocytes 34.5 % (20.5-51.1); % Monocytes 7.6 % (1.7-9.3); Absolute Basophils 0.1 10^3/uL (0-0.2); Absolute Eosinophils 0.4 10^3/uL (0-0.7); Absolute Lymphocytes 2.2 10^3/uL (1.2-3.4); Absolute Monocytes 0.5 10^3/uL (0.1-0.6); Absolute Neutrophils 3.3 10^3/uL (1.4-6.5); Hemoglobin 11.4 g/dL (12.0-16.0); Mean Corp Hgb Conc. 35.6 g/dL (33.0-37.0); Mean Corpuscular Hgb 32.8 pg (27.0-31.0); Mean Platelet Volume 9.5 fL (7.4-10.4); Nucleated Red Blood Cells % 0 %; Platelet Count 173 10^3/uL (130-400); Red Blood Cell Count 3.48 10^6/uL (4.20-5.40); Red Cell Dist. Width 12.1 % (11.5-14.5); White Blood Cell Count 6.4 10^3/uL (4.8-10.8)
--- NOTE | 2023-11-06 01:03 | PTCARENOTE ---
VAT at bedside, 24g placed in L foot. AM labs sent at this time. [address]. neuro status unchanged, pt still becomes agitated with care. SR on monitor. remains on RA. care ongoing.
[2023-11-06 01:09] LABS: Blood Urea Nitrogen 7 mg/dl (7-17); Calcium 9.2 mg/dl (8.4-10.2); Carbon Dioxide 18 mmol/L (22-30); Chloride 114 mmol/L (98-107); Estimated Creatinine Clearance 115 ml/min; Glucose 91 mg/dl (70-99); Potassium 3.5 mmol/L (3.5-5.1); Sodium 142 mmol/L (135-145); eGFR > 60.00
--- NOTE | 2023-11-06 03:35 | VATNOTE ---
LATE ENTRY-IV ACCESS ESTABLISHED DOCUMENTED. PCN TO OBTAIN FOOT ORDER FROM PROVIDER PER CONVERSATION.
[2023-11-06] MEDS: LIORESAL 20 MG PO ×3 (07:51→21:30)
[2023-11-06] MEDS: ZYRTEC 10 MG PO (07:51)
[2023-11-06] MEDS: LEXAPRO 20 MG PO (07:51)
[2023-11-06] MEDS: THIAMINE INJECTION 100 MG IV (07:52)
[2023-11-06] MEDS: PROTONIX IV 40 MG IV (07:52)
[2023-11-06] MEDS: NSS (PRESERVATIVE FREE) 10 ML IV (07:52)
[2023-11-06] MEDS: TYLENOL 650 MG PO ×3 (08:40→23:59)
--- NOTE | 2023-11-06 08:42 | PTCARENOTE ---
Updated assessment, vital signs ongoing and as documented. Patient able to communicate some needs and follow some simple commands. Try and update plan of cares and plan of day. Trial with nurse gay barger in apple sauce patient tolerated very well.
Will update attending, pt/ot need and possible follow up of speech. Continue ongoing rounds, update spd needs and possible trials off thru day. Continue to explain all procedures and protocols. Ongoing supportive cares and emotional support.
--- NOTE | 2023-11-06 09:35 | W.PN.NEURO.1 ---
Today's Communication / Plan
-
Continue lacosamide
Continue levetiracetam
Neuro Assessment/Plan
Assessment
IMPRESSIONS/RECOMMENDATIONS:
Abrupt change in mental status in a patient with prior history of seizures, HIV infection, stroke, and suggestion of recent vaping of a substances
Differential diagnosis includes toxic metabolic encephalopathy, recurrent seizures, not suggested by EEG performed
Plan
Continue lacosamide
Continue levetiracetam
Attempt to avoid additional sedative agents if possible
Provided thiamine
Will continue to follow as outpatient.
Subjective/Objective
Subjective Data
Date of Service: November 06, 2023
Objective Data
Vital Signs
Temp Pulse Resp BP Pulse Ox
37.1 C 79 20 139/90 98
11/06/23 07:11 11/06/23 08:30 11/06/23 08:30 11/06/23 08:30 11/06/23 08:30
Lab Results
11/06/23 00:46
11/06/23 00:46
PT Cancelled 11/04/23 06:00
INR Cancelled 11/04/23 06:00
APTT Cancelled 11/04/23 06:00
Sodium 142 mmol/L (135-145) 11/06/23 00:46
Potassium 3.5 mmol/L (3.5-5.1) 11/06/23 00:46
BUN 7 mg/dl (7-17) 11/06/23 00:46
Glucose 91 mg/dl (70-99) 11/06/23 00:46
Calcium 9.2 mg/dl (8.4-10.2) 11/06/23 00:46
LDL Cholesterol, Calc 59 mg/dl 11/04/23 03:44
Ur Buprenorphine Cancelled 11/03/23 21:40
Ur Buprenorphine Negative (Negative) 11/03/23 21:40
Patient Allergies
No Known Allergies Allergy (Verified 04/01/23 10:16)
--- NOTE | 2023-11-06 10:37 | W.PN.ID1 ---
Date of Service
Date of Service: November 06, 2023
Today's Communication
Hold Biktarvy another 24 to 48 hours. If stable and maintaining oral input, can reinitiate.
Assessment / Plan
HIV
Encephalopathy
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
HTN
Seizure disorder
Anxiety/depression
Migraines
HIV (Dx: 2020. Unknown VL/CD4. On Biktarvy)
Recommendations:
Patient afebrile since admission. WBC normal. Repeat urine culture pending, but doubt UTI present.
Doing well off antibiotics.
At this time, the patient appears to be doing well. Would follow for an additional 24 to 48 hours to make sure that she is overall improved and stable, at which time Biktarvy can be reinitiated.
No information received from nursing facility regarding routine HIV labs.
����������������������������������������������������������
Chief Complaint
-: Other (HIV)
Subjective / Review of Systems
Review of Systems: No Fever
Vital Signs / Physical Exam
Vital Signs
Vital Signs
Temp Pulse Resp BP Pulse Ox
98.7 F 79 20 139/90 98
11/06/23 07:11 11/06/23 08:30 11/06/23 08:30 11/06/23 08:30 11/06/23 08:30
Physical Exam
Physical Exam:
Constitutional: Comfortable, Chronically Ill and Non-toxic
Eyes: Sclera Anicteric
Cardiovascular: S1/S2; Negative S3/S4
Pulmonary: Non Labored
Gastrointestinal: Soft and Non Tender
Extremities: Negative Edema, Cyanosis or Erythema
Neurological: Awake and alert. Answering questions appropriately, although has baseline aphasia.
Psychological: Confusion improved.
Objective Data
Lab Data
Lab Results
11/06/23 00:46
11/06/23 00:46
PT Cancelled 11/04/23 06:00
INR Cancelled 11/04/23 06:00
APTT Cancelled 11/04/23 06:00
Estimated Creat Clear 115 ml/min 11/06/23 00:46
Total Bilirubin 0.5 mg/dl (0.2-1.3) 11/04/23 03:44
AST 21 U/L (14-36) 11/04/23 03:44
ALT 21 U/L (0-35) 11/04/23 03:44
Alkaline Phosphatase 69 U/L (38-126) 11/04/23 03:44
Most recent labs reviewed.
Micro Results:
11/03/23 22:36 Blood Culture - Preliminary
Blood/Venous No Growth in 48 hours- Final report to follow
11/03/23 21:40 Urine Culture - Final
Urine
11/03/23 22:36 Nasal Screen MRSA (PCR) - Final
Nose MRSA not detected - performed by PCR methodology.
Imaging:
11/03/2023 CXR (portable): No acute infiltrate noted. (Film personally viewed)
--- NOTE | 2023-11-06 10:39 | PTCARENOTE ---
Hospitalist at bedside. Updated events of evening, plan of cares and follow up concerns. Updated plan of cares. Speech at bedside. Updated clear for regular diet. Reinforce and review follow up neurology assessment. Tolerating po's with assist. Plan
to trial off spds. Update with hospitalist and level of care plan to follow.
--- NOTE | 2023-11-06 11:11 | PTOTSP ---
Dysphagia Therapy
Oral/pharyngeal stages of swallowing WFL for a regular, thin liquid diet.
Recommend:
1. Regular, Thin Liquids
2. Medications as best tolerated
3. Full supervision and assistance with PO (given restraints)
4. Oral care 3x daily
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 Patient can currently communicate via communication board (provided by [employer]), texting on
cell-phone, gestures, and/or yes/no questions.
[2023-11-06] MEDS: ZESTRIL 10 MG PO (12:03)
--- NOTE | 2023-11-06 12:44 | W.PN.HOSP.TC ---
Today's Communication/Plan
-
Monitor vital signs
See plan
Spoke with guardian, does not want patient to return to [facility]. Looking for new placement. fight manager aware
Change antiepileptics to oral
Monitor mental status
Transfer to the floor
restart aspirin when ok with neurology
Assessment / Plan
Assessment / Plan
General: Well Developed
HEENT: NormoCephalic and Anicteric
Respiratory: Clear; No Wheezes or Rales
Cardiac: S1/S2 and Regular Rhythm
GI: Soft and Non Distended
Musculoskeletal: No Edema
Neuro: agitated,aphasia
Psych: agitated
CVA/TIA r/o breakthrough seizures
s/p TNK
serial CT head neg for acute findings
MRI, MRA head/neck could not be obtained at this time since patient is agitated and cannot be cleared due to pacemaker. per neurology no further need as CT was done and was neg
cw neurochecks
statin when able
neurology following
Seizure precautions
Switch Keppra and lacosamide to p.o.
Artivan PRN
EEG without seizure
Check urine drug screen + THC
unclear what driven patient's symptoms
Restart baby aspirin when okay with neurology
History of depression and anxiety
11/04 was agiatted and was on restraints; now calm. able to tolerate PO; does have aphasia at baseline
cw ativan as needed
Seen by speech again, okay for regular diet
Suspect UTI
urine cx contaminant
dc abx and monitor
Hx of CVA with right hemiparesis and aphasia
hx of seizures
#HIV
hold biktarvy per ID
#Migraines
#MDD
History of pacemaker
#Essential HTN
cw labetalol
restart PO meds once able to tolerate PO
DVTppx
s/p TNK; when ok with neurology
Full code
POLucero is court appointed guardian for decisions. However per guardian daughter is aware of her history that can be reached at [phone]
ICU attending had extensive discussion with power of commercial real estate attorney on this hospitalization. Power of commercial real estate attorney and patient son and daughter will be reviewing and will decide on CODE STATUS.
11/04:-Spoke with patient guardian who is POA and will speak with patient family again today.
11/05: Spoke with guardian; he doesnt not want patient to return back to [facility]. fight manager working on new placement. CODE STATUS remains full code
I spent a total of 52 minutes with the patient or on the floor. More than 50% of this time involved counseling and coordination of care.
Anticipated Discharge: Within 24 hours
Subjective/Interval History
-
Date of Service: November 06, 2023
much alert today
Objective Data
-
Labs:
Laboratory Results
11/06/23
00:46
WBC 6.4
Hgb 11.4 L
Hct 32.0 L
Plt Count 173
Sodium 142
Potassium 3.5
Chloride 114 H
Carbon Dioxide 18 L
BUN 7
Creatinine 0.6
Glucose 91
Calcium 9.2
Vital Signs:
Vital Signs
Temp Pulse Resp BP Pulse Ox
97.9 F 90 18 142/91 99
11/06/23 11:19 11/06/23 12:03 11/06/23 12:00 11/06/23 12:03 11/06/23 12:00
I&O
11/05/23 11/06/23 11/07/23
06:59 06:59 06:59
Intake Total 2500 / 2600 1300 / 1300 120 / 120
Output Total 900 / 1200 1500 / 1500 200 / 200
Balance 1600 / 1400 -200 / -200 -80 / -80
[2023-11-06] MEDS: LIPITOR 40 MG PO (17:42)
--- NOTE | 2023-11-06 17:56 | PTCARENOTE ---
Patient working hard thru shift with critical care staff. Continued improvement expressing needs and assisting in cares, feeds and interaction with staff. Tolerated regular diet with supervision. Continue bedside mobility and rom practice. Continue
with sign board and patient phone to review events and plan of cares. Sat with patient to update medication list. Continue with teaching, supportive cares and emotional support, Call tidwell instruct, demo and in use as needed. VSS, assessment
unchanged continues to improve. SPD trial and presently off thru shift [id number]. Continue frequent rounds and frequent patient safety checks. Skin cares and back rub completed at this assessment.
[2023-11-06] MEDS: TOPROL XL 25 MG PO (19:24)
[2023-11-06] MEDS: VIMPAT 150 MG PO (19:24)
[2023-11-06] MEDS: KEPPRA 1000 MG PO (19:24)
[2023-11-07] VITALS (11 sets, daily range): BP systolic 130–156; BP diastolic 75–97; PULSE 69–81; BMI 28.3
[2023-11-07 05:52] LABS: % Basophils 0.7 % (0-2); % Eosinophils 6.3 % (0-6); % Immature Granulocytes 0.4 % (0-0.5); % Lymphocytes 30.5 % (20.5-51.1); % Neutrophils 55.1 % (42.2-75.2); Absolute Eosinophils 0.3 10^3/uL (0-0.7); Absolute Lymphocytes 1.7 10^3/uL (1.2-3.4); Absolute Monocytes 0.4 10^3/uL (0.1-0.6); Hematocrit 32.5 % (37.0-47.0); Hemoglobin 11.2 g/dL (12.0-16.0); Mean Corp Hgb Conc. 34.5 g/dL (33.0-37.0); Mean Corpuscular Hgb 32.7 pg (27.0-31.0); Mean Platelet Volume 9.9 fL (7.4-10.4); Nucleated Red Blood Cells % 0 %; Platelet Count 170 10^3/uL (130-400); Red Blood Cell Count 3.42 10^6/uL (4.20-5.40); Red Cell Dist. Width 12.1 % (11.5-14.5); White Blood Cell Count 5.4 10^3/uL (4.8-10.8)
[2023-11-07 06:26] LABS: Blood Urea Nitrogen 14 mg/dl (7-17); Carbon Dioxide 20 mmol/L (22-30); Chloride 112 mmol/L (98-107); Estimated Creatinine Clearance 113 ml/min; Glucose 97 mg/dl (70-99); Potassium 4.3 mmol/L (3.5-5.1); Sodium 142 mmol/L (135-145); eGFR > 60.00
--- NOTE | 2023-11-07 08:19 | W.PN.NEURO.1 ---
Today's Communication / Plan
-
-PRN Tylenol for headache, give one dose PO Maxalt
-Restart aspirin 81 mg daily
-Continue home doses of Levetiracetam and Lacosamide
-Not recommending brain MRI
-Supportive care otherwise
Neuro Assessment/Plan
Assessment
IMPRESSIONS/RECOMMENDATIONS:
Abrupt change in mental status in a patient with prior history of seizures, HIV infection, and suggestion of recent vaping of a substances
Differential diagnosis includes toxic metabolic encephalopathy, migraine, recurrent seizures, not suggested by EEG performed.
Doubt a new stroke as cause.
Not entirely clear what etiology of presentation was, patient appears improving. Vaping substance earlier in the day suggests intoxication as possible cause on top of a patient with history of stroke placing at risk for easier development of
encephalopathy
Subjective/Objective
Subjective Data
Date of Service: November 07, 2023
No acute events, endorses headache, around 3 headaches per week normally, denies nausea
Objective Data
Vital Signs
Temp Pulse Resp BP Pulse Ox
97.9 F 61 12 141/95 97
11/07/23 05:02 11/07/23 04:00 11/07/23 02:00 11/07/23 04:00 11/07/23 03:55
Lab Results
11/07/23 05:37
11/07/23 05:37
PT Cancelled 11/04/23 06:00
INR Cancelled 11/04/23 06:00
APTT Cancelled 11/04/23 06:00
Sodium 142 mmol/L (135-145) 11/07/23 05:37
Potassium 4.3 mmol/L (3.5-5.1) 11/07/23 05:37
BUN 14 mg/dl (7-17) 11/07/23 05:37
Glucose 97 mg/dl (70-99) 11/07/23 05:37
Calcium 9.0 mg/dl (8.4-10.2) 11/07/23 05:37
LDL Cholesterol, Calc 59 mg/dl 11/04/23 03:44
Ur Buprenorphine Cancelled 11/03/23 21:40
Ur Buprenorphine Negative (Negative) 11/03/23 21:40
Patient Allergies
No Known Allergies Allergy (Verified 04/01/23 10:16)
Review of Systems
-
Unable to obtain full review of systems at this time due to: Aphasia
Physical Exam
-
General: Comfortable
Eyes: No Ptosis
HEENT: Normocephalic
Neck: No Bruits Bilaterally
Respiratory: Clear to Auscultation
Cardiac: Regular Rhythm
GI: Normal Bowel Sounds
Skin: Unremarkable
Extremities: No Clubbing
Psych: Unremarkable
Extended Neurological Exam
Mood & Affect: Mood Unremarkable and Affect Unremarkable
Attention Span & Concentration: Awake, Alert, Interactive and Moderate Difficulty with 2 Step Request
Memory: Unable to Assess
Tremor: Hand Tremor Absent
Speech: Expressive Aphasia (Mixed expressive and receptive aphasia, obeys simple commands)
Cranial Nerve II: Left Eye: Pupillary Reactivity Unremarkable and Pupillary Size Unremarkable
Cranial Nerve II: Right Eye: Pupillary Reactivity Unremarkable and Pupillary Size Unremarkable
Muscle Strength, Overall: Other (Right arm and leg spasticity and weakness, right arm 2/5 at best)
Data Reviewed
-
CT Head: Report Reviewed and Image Reviewed
EEG: Report Reviewed
[2023-11-07] MEDS: VIMPAT 150 MG PO ×2 (09:26→19:48)
[2023-11-07] MEDS: ZESTRIL 10 MG PO (09:27)
[2023-11-07] MEDS: THIAMINE INJECTION 100 MG IV (09:28)
[2023-11-07] MEDS: KEPPRA 1000 MG PO ×2 (09:29→19:47)
[2023-11-07] MEDS: PROTONIX 40 MG PO (09:29)
[2023-11-07] MEDS: TOPROL XL 25 MG PO ×2 (09:30→19:48)
[2023-11-07] MEDS: LIORESAL 20 MG PO ×3 (09:30→21:58)
--- NOTE | 2023-11-07 09:30 | PTCARENOTE ---
Assumed care of pt at 0715 following shift report. Pt resting quietly in bed, watching TV and using phone/ipad. Reports headache. Medicated per AUG. Physical assessment completed as documented. Comfort care/hygiene provided. Call diann w/in pt reach
and safe environment maintained.
[2023-11-07] MEDS: LEXAPRO 20 MG PO (09:31)
[2023-11-07] MEDS: MAXALT MLT (ORALLY DISINTEGRATING) 10 MG PO (09:36)
[2023-11-07] MEDS: ASPIR LOW (ENTERIC COATED) 81 MG PO (09:36)
[2023-11-07] MEDS: ZYRTEC 10 MG PO (09:36)
[2023-11-07] MEDS: TYLENOL 650 MG PO ×2 (09:37→19:50)
--- NOTE | 2023-11-07 10:38 | W.PN.ID1 ---
Date of Service
Date of Service: November 07, 2023
Today's Communication
Reinitiate Biktarvy.
Assessment / Plan
HIV
Encephalopathy
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
HTN
Seizure disorder
Anxiety/depression
Migraines
HIV (Dx: 2019. Unknown VL/CD4. On Biktarvy)
Recommendations:
Patient afebrile since admission. WBC normal. Repeat urine culture pending, but doubt UTI present.
Doing well off antibiotics.
At this time, the patient appears to be doing well. Patient taking oral medications.
Will reinitiate Biktarvy.
No information received from nursing facility regarding routine HIV labs.
According to reviewed notes, patient will not be returning to [facility].
Patient should have repeat HIV labs at some point in time, although not necessary at the moment.
����������������������������������������������������������
Chief Complaint
-: Other (HIV)
Subjective / Review of Systems
Review of Systems: No Fever and No Chills
Vital Signs / Physical Exam
Vital Signs
Vital Signs
Temp Pulse Resp BP Pulse Ox
97.9 F 75 12 160/105 97
11/07/23 05:02 11/07/23 09:30 11/07/23 02:00 11/07/23 09:30 11/07/23 03:55
Physical Exam
Constitutional: No Acute Distress, Comfortable and Non-toxic
Cardiovascular: S1/S2; Negative S3/S4
Pulmonary: Non Labored
Gastrointestinal: Soft and Non Distended
Neurological: Awake and Alert
Psychological: Calm
Objective Data
Lab Data
Lab Results
11/07/23 05:37
11/07/23 05:37
PT Cancelled 11/04/23 06:00
INR Cancelled 11/04/23 06:00
APTT Cancelled 11/04/23 06:00
Estimated Creat Clear 113 ml/min 11/07/23 05:37
Total Bilirubin 0.5 mg/dl (0.2-1.3) 11/04/23 03:44
AST 21 U/L (14-36) 11/04/23 03:44
ALT 21 U/L (0-35) 11/04/23 03:44
Alkaline Phosphatase 69 U/L (38-126) 11/04/23 03:44
Most recent labs reviewed.
Micro Results:
11/03/23 22:36 Blood Culture - Preliminary
Blood/Venous No Growth in 72 hours- Final report to follow
11/03/23 21:40 Urine Culture - Final
Urine
11/03/23 22:36 Nasal Screen MRSA (PCR) - Final
Nose MRSA not detected - performed by PCR methodology.
Imaging:
11/03/2023 CXR (portable): No acute infiltrate noted. (Film personally viewed)
--- NOTE | 2023-11-07 11:26 | W.PN.HOSP.TC ---
Today's Communication/Plan
-
Monitor vital signs and see plan
Patient mental status now appears back to baseline
Transfer to [facility]
Continue with antiepileptics
Aspirin restarted
Lovenox for DVT prophylaxis
POA updated over the phone
Will need new placement
Assessment / Plan
Assessment / Plan
General: Well Developed
HEENT: NormoCephalic and Anicteric
Respiratory: Clear; No Wheezes or Rales
Cardiac: S1/S2 and Regular Rhythm
GI: Soft and Non Distended
Musculoskeletal: No Edema
Neuro: aphasia
Psych: calm
CVA/TIA r/o breakthrough seizures
s/p TNK
serial CT head neg for acute findings
MRI, MRA head/neck could not be obtained at this time since patient is agitated and cannot be cleared due to pacemaker. per neurology no further need as CT was done and was neg
cw neurochecks
statin when able
neurology following
Seizure precautions
PO Keppra and lacosamide
Ativan PRN
EEG without seizure
Check urine drug screen + THC
unclear what driven patient's symptoms
baby aspirin restarted
Patient is now following commands and can make her needs known though nodding head appropriately
History of depression and anxiety
11/04 was agitated and was on restraints; now calm. able to tolerate PO; does have aphasia at baseline
cw ativan as needed
Seen by speech again, okay for regular diet
Suspect UTI
urine cx contaminant
dc abx and monitor
Hx of CVA with right hemiparesis and aphasia
hx of seizures
#HIV
restarted biktarvy
#Migraines
#MDD
History of pacemaker
#Essential HTN
restarted lisinopril,metoprolol
hydralazine prn
DVTppx
lovenox;ok'ed by neurology
Full code
POLucero is court appointed guardian for decisions. However per guardian daughter is aware of her history that can be reached at [phone]
ICU attending had extensive discussion with power of corporate associate attorney on this hospitalization. Power of corporate associate attorney and patient son and daughter will be reviewing and will decide on CODE STATUS.
11/04:-Spoke with patient guardian who is POA and will speak with patient family again today.
11/05: Spoke with guardian; he doesnt not want patient to return back to [facility]. field party manager working on new placement. CODE STATUS remains full code
11/06: Spoke with Guardian; will need new placement. CM aware.
I spent a total of 52 minutes with the patient or on the floor. More than 50% of this time involved counseling and coordination of care.
Anticipated Discharge: Within 24 hours
Subjective/Interval History
-
Date of Service: November 07, 2023
has headache
Objective Data
-
Labs:
Laboratory Results
11/07/23
05:37
WBC 5.4
Hgb 11.2 L
Hct 32.5 L
Plt Count 170
Sodium 142
Potassium 4.3
Chloride 112 H
Carbon Dioxide 20 L
BUN 14
Creatinine 0.6
Glucose 97
Calcium 9.0
Vital Signs:
Vital Signs
Temp Pulse Resp BP Pulse Ox
97.9 F 75 12 160/105 97
11/07/23 05:02 11/07/23 09:30 11/07/23 02:00 11/07/23 09:30 11/07/23 03:55
I&O
11/06/23 11/07/23 11/08/23
06:59 06:59 06:59
Intake Total 1300 / 1300 360 / 360
Output Total 1500 / 1500 600 / 600
Balance -200 / -200 -240 / -240
--- NOTE | 2023-11-07 12:34 | CM ---
CM following re: discharge planning.
Discussed in Rounds, reviewed pt's chart, met with pt and spoke to pt's legal guardian Justin Joe to update on discharge plan progress.
Per Rounds meeting, pt has been improving and downgraded from ICU level of care.
Pt's legal guardian made it very clear that his client Ana Blake will not return bcak to [facility] under any circumstances. per legal guardian, pt had been a alf care resident at [facility] for around 1.5 years.
Pt's legal guardian Justin Diaz has been informed that [facility], [facility] and [facility] offered a bed. Pt's legal guardian stated he requested a SNF in [facility] and he was informed that none facilities in
[facility] offered a bed. Pt's legal guardian expressed his understanding and he is requested [facility]. [facility] emerging technologies director Svetlana Padgett requested to talk to legal guardian and legal guardian agrees to talk to
emerging technologies director at [facility] [phone].
D/C plan: [facility]. Awaiting for final determination from [facility] admissions department.
CM will follow to assist pt with discharge to a preferred and accepted SNF for a superintendent marine oil terminal care.
--- NOTE | 2023-11-07 13:30 | PTCARENOTE ---
Pt sitting OOB in chair since PT/OT visit. Pt using call tidwell appropriately to make needs known. Pt rang call tidwell and indicated she needed to use [facility]. Transferred using wheeled walker and assist of two staff- voided large amount. Pt tolerated
activity well. No changes from prior assessment findings. Pt now M/S level of care. monitoring analyst removed and waiting on bed availability.
[2023-11-07] MEDS: BIKTARVY 50-200-25 MG TABLET 1 TABLET PO (14:12)
--- NOTE | 2023-11-07 14:45 | PTCARENOTE ---
Transfer report given to 'Addie BLAS' at 1430. Pt to transfer via to Rm [id number] with all personal belongings. No changes noted prior to transfer or complaints received.
[2023-11-07] MEDS: LOVENOX 40 MG SC (16:43)
[2023-11-07] MEDS: LIPITOR 40 MG PO (16:43)
[2023-11-08 06:33] LABS: % Basophils 0.8 % (0-2); % Eosinophils 6.4 % (0-6); % Immature Granulocytes 0.6 % (0-0.5); % Lymphocytes 30.5 % (20.5-51.1); % Neutrophils 53.7 % (42.2-75.2); Absolute Basophils 0.1 10^3/uL (0-0.2); Absolute Eosinophils 0.4 10^3/uL (0-0.7); Absolute Monocytes 0.5 10^3/uL (0.1-0.6); Absolute Neutrophils 3.5 10^3/uL (1.4-6.5); Hematocrit 33.9 % (37.0-47.0); Hemoglobin 11.7 g/dL (12.0-16.0); Mean Corp Hgb Conc. 34.5 g/dL (33.0-37.0); Mean Corpuscular Hgb 32.3 pg (27.0-31.0); Mean Corpuscular Volume 93.6 fL (81.0-99.0); Mean Platelet Volume 9.7 fL (7.4-10.4); Nucleated Red Blood Cells % 0 %; Platelet Count 187 10^3/uL (130-400); Red Blood Cell Count 3.62 10^6/uL (4.20-5.40); Red Cell Dist. Width 12.2 % (11.5-14.5); White Blood Cell Count 6.5 10^3/uL (4.8-10.8)
[2023-11-08] MEDS: TYLENOL 650 MG PO ×3 (06:43→20:05)
[2023-11-08 07:00] VITALS: BP 128/82
[2023-11-08 07:36] LABS: Blood Urea Nitrogen 15 mg/dl (7-17); Calcium 9.1 mg/dl (8.4-10.2); Carbon Dioxide 22 mmol/L (22-30); Chloride 113 mmol/L (98-107); Estimated Creatinine Clearance 85 ml/min; Glucose 87 mg/dl (70-99); Sodium 144 mmol/L (135-145); eGFR > 60.00
[2023-11-08] MEDS: VIMPAT 150 MG PO ×2 (07:48→19:32)
[2023-11-08] MEDS: ASPIR LOW (ENTERIC COATED) 81 MG PO (07:50)
[2023-11-08] MEDS: KEPPRA 1000 MG PO ×2 (07:50→19:33)
[2023-11-08] MEDS: LIORESAL 20 MG PO ×3 (07:50→21:53)
[2023-11-08] MEDS: PROTONIX 40 MG PO (07:50)
[2023-11-08] MEDS: LEXAPRO 20 MG PO (07:50)
[2023-11-08] MEDS: TOPROL XL 25 MG PO ×2 (07:50→19:33)
[2023-11-08] MEDS: ZYRTEC 10 MG PO (07:51)
[2023-11-08] MEDS: ZESTRIL 10 MG PO (07:51)
[2023-11-08] MEDS: THIAMINE INJECTION 100 MG IV (07:51)
[2023-11-08] MEDS: BIKTARVY 50-200-25 MG TABLET 1 TABLET PO (09:19)
--- NOTE | 2023-11-08 10:16 | W.PN.HOSP.TC ---
Addendum entered and electronically signed by Caleb Barth MD 11/08/23 16:36:
Agitation likely thought was secondary to toxic metabolic encephalopathy given recent vape use
Original Note:
Today's Communication/Plan
-
Monitor vital signs and see plan
Continue aspirin
Awaiting placement
monitor off abx
cw seizure meds
Assessment / Plan
Assessment / Plan
General: Well Developed
HEENT: NormoCephalic and Anicteric
Respiratory: Clear; No Wheezes or Rales
Cardiac: S1/S2 and Regular Rhythm
GI: Soft and Non Distended
Musculoskeletal: No Edema
Neuro: aphasia
Psych: calm
Found down with concern of CVA/TIA r/o breakthrough seizures
s/p TNK
serial CT head neg for acute findings
MRI, MRA head/neck could not be obtained at this time since patient is agitated and cannot be cleared due to pacemaker. per neurology no further need as CT was done and was neg
cw neurochecks
neurology following
PO Keppra and lacosamide
Ativan PRN
EEG without seizure
Check urine drug screen + THC
unclear what driven patient's symptoms; could be 2/2 recent vaping event
cw aspirin; restarted
Patient is now following commands and can make her needs known though nodding head appropriately
History of depression and anxiety
11/04 was agitated and was on restraints; now calm. able to tolerate PO; does have aphasia at baseline
cw ativan as needed
Seen by speech again, okay for regular diet
Suspect UTI
urine cx contaminant
dc abx and monitor; no further sx
Hx of CVA with right hemiparesis and aphasia
hx of seizures
#HIV
restarted biktarvy
#Migraines
#MDD
History of pacemaker
#Essential HTN
restarted lisinopril,metoprolol
hydralazine prn
DVTppx
lovenox;ok'ed by neurology
Full code
JESSA is court appointed guardian for decisions. However per guardian daughter is aware of her history that can be reached at [phone]
ICU attending had extensive discussion with power of claims attorney on this hospitalization. Power of claims attorney and patient son and daughter will be reviewing and will decide on CODE STATUS.
11/04:-Spoke with patient guardian who is POA and will speak with patient family again today.
11/05: Spoke with guardian; he doesnt not want patient to return back to [facility]. site safety manager working on new placement. CODE STATUS remains full code
11/06: Spoke with Guardian; does not want patient to go back to [facility]. Will need new placement. CM aware.
I spent a total of 51 minutes with the patient or on the floor. More than 50% of this time involved counseling and coordination of care.
Anticipated Discharge: Within 24 hours
Subjective/Interval History
-
Date of Service: November 08, 2023
denies pain
Objective Data
-
Labs:
Laboratory Results
11/08/23
06:16
WBC 6.5
Hgb 11.7 L
Hct 33.9 L
Plt Count 187
Sodium 144
Potassium 4.0
Chloride 113 H
Carbon Dioxide 22
BUN 15
Creatinine 0.8
Glucose 87
Calcium 9.1
Vital Signs:
Vital Signs
Temp Pulse Resp BP Pulse Ox
98.6 F 69 16 128/82 97
11/08/23 07:00 11/08/23 07:51 11/08/23 07:00 11/08/23 07:51 11/08/23 09:55
I&O
11/07/23 11/08/23 11/09/23
06:59 06:59 06:59
Intake Total 360 / 360 1200 / 1200
Output Total 600 / 600 800 / 800
Balance -240 / -240 400 / 400
[2023-11-08 15:00] VITALS: BP 138/77
--- NOTE | 2023-11-08 15:46 | CM ---
employment case manager following for D/c planning
Pt has court ordered guardian - Justin Diaz [phone]
Called and spoke with Justin - updated [facility] unable to accept
Discussed sending more referrals - Justin suggested [facility]
Referrals sent in [facility]
Spoke with pt and her daughter at bedside - aware of plan regarding SNF/LTC
Plan - SNF/LTC when facility obtained
--- NOTE | 2023-11-08 15:57 | PN.CDI ---
CDI
- -
CDI:
Physician Documentation Request
Admit Date: 11/03/23 18:03
Dear Doctor Tab
Patient found down with concern for CVA/TIA s/p TNK.
Patient has history of CVA with right sided residual paresis
Progress note state '11/04 was agitated and was on restraints; now calm.... continue with ativan as needed'
Could you clarify in the Progress Notes if any of the following, is the most likely etiology of the agitation/altered mental status.
Encephalopathy - indicate type, such as metabolic, toxic, septic, alcoholic, anoxic, hypertensive etc. due to a specific condition such as UTI, CVA, hyponatremia etc.
Acute Delirium - indicate known or suspected etiology such as postoperative, due to opioids or other drugs etc. Can also indicate unknown or mixed etiologies.
Baseline Dementia - indicate type, such as Alzheimer's, senile, vascular, Lewy body etc., and any associated behavioral disturbances (aggressive, combative or violent behavior) if present
Other
Use of terms such as suspected, likely, concern for, or probable (associated with a specific diagnosis that is being evaluated, monitored, or treated as if it exists) are acceptable and can be coded in the inpatient setting, when documented at the
time of discharge.
Thank you,
Bessie Peralta RN, BSN
CDI Specialist
tiger text
Please use your independent medical judgment in providing your response.
--- NOTE | 2023-11-08 15:59 | W.PN.ID1 ---
Date of Service
Date of Service: November 08, 2023
Today's Communication
Continue Biktarvy
Assessment / Plan
HIV
Encephalopathy
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
HTN
Seizure disorder
Anxiety/depression
Migraines
HIV (Dx: 2020. Unknown VL/CD4. On Biktarvy)
Recommendations:
Patient afebrile since admission. WBC normal.
Doing well off antibiotics.
At this time, the patient appears to be doing well. Patient taking oral medications.
Biktarvy reinitiated.
According to reviewed notes, patient will not be returning to [facility].
Patient should have repeat HIV labs (HIV viral load; CD4 count) at some point in time, although not necessary at the moment.
Patient will need to follow-up with HIV provider following discharge.
����������������������������������������������������������
Chief Complaint
-: Other (HIV)
Subjective / Review of Systems
Review of Systems: No Fever and No Chills
Vital Signs / Physical Exam
Vital Signs
Vital Signs
Temp Pulse Resp BP Pulse Ox
98.6 F 81 19 138/77 98
11/08/23 15:00 11/08/23 15:00 11/08/23 15:00 11/08/23 15:00 11/08/23 15:00
Physical Exam
Constitutional: No Acute Distress, Comfortable, Chronically Ill and Non-toxic
Eyes: Sclera Anicteric
Cardiovascular: S1/S2; Negative S3/S4
Pulmonary: Non Labored
Gastrointestinal: Non Distended
Neurological: Awake, Alert and Other (Baseline aphasia.)
Psychological: Calm
Objective Data
Lab Data
Lab Results
11/08/23 06:16
11/08/23 06:16
PT Cancelled 11/04/23 06:00
INR Cancelled 11/04/23 06:00
APTT Cancelled 11/04/23 06:00
Estimated Creat Clear 85 ml/min 11/08/23 06:16
Total Bilirubin 0.5 mg/dl (0.2-1.3) 11/04/23 03:44
AST 21 U/L (14-36) 11/04/23 03:44
ALT 21 U/L (0-35) 11/04/23 03:44
Alkaline Phosphatase 69 U/L (38-126) 11/04/23 03:44
Most recent labs reviewed.
Micro Results:
11/03/23 22:36 Blood Culture - Preliminary
Blood/Venous No Growth in 4 days- Final report to follow
11/03/23 21:40 Urine Culture - Final
Urine
11/03/23 22:36 Nasal Screen MRSA (PCR) - Final
Nose MRSA not detected - performed by PCR methodology.
Imaging:
11/03/2023 CXR (portable): No acute infiltrate noted. (Film personally viewed)
[2023-11-08] MEDS: LOVENOX 40 MG SC (17:27)
[2023-11-08] MEDS: LIPITOR 40 MG PO (17:28)
[2023-11-08] MEDS: NEURONTIN 300 MG PO (19:33)
[2023-11-08 23:10] VITALS: BP 110/61
--- NOTE | 2023-11-09 03:12 | DOWNTIME ---
There was a [employer] Client Accounts Payable Bookkeeper Downtime on 11/08/2023 from 0100 to 11/09/2023 at 0300. Downtime documentation of patient's care, including medication administrations, has been reconciled in the electronic record per guidelines. Refer to the
patient's paper chart under the miscellaneous tab to see printed paper medication records and downtime forms.
[2023-11-09 06:41] LABS: % Basophils 0.8 % (0-2); % Eosinophils 8.9 % (0-6); % Immature Granulocytes 0.7 % (0-0.5); % Lymphocytes 29.4 % (20.5-51.1); % Monocytes 7.7 % (1.7-9.3); % Neutrophils 52.5 % (42.2-75.2); Absolute Basophils 0.1 10^3/uL (0-0.2); Absolute Eosinophils 0.5 10^3/uL (0-0.7); Absolute Lymphocytes 1.8 10^3/uL (1.2-3.4); Absolute Monocytes 0.5 10^3/uL (0.1-0.6); Absolute Neutrophils 3.2 10^3/uL (1.4-6.5); Hematocrit 33.4 % (37.0-47.0); Hemoglobin 11.2 g/dL (12.0-16.0); Mean Corp Hgb Conc. 33.5 g/dL (33.0-37.0); Mean Corpuscular Hgb 32.3 pg (27.0-31.0); Mean Corpuscular Volume 96.3 fL (81.0-99.0); Nucleated Red Blood Cells % 0 %; Platelet Count 191 10^3/uL (130-400); Red Blood Cell Count 3.47 10^6/uL (4.20-5.40); Red Cell Dist. Width 12.2 % (11.5-14.5); White Blood Cell Count 6.1 10^3/uL (4.8-10.8)
[2023-11-09 06:51] LABS: Blood Urea Nitrogen 19 mg/dl (7-17); Calcium 8.9 mg/dl (8.4-10.2); Carbon Dioxide 25 mmol/L (22-30); Chloride 110 mmol/L (98-107); Estimated Creatinine Clearance 85 ml/min; Glucose 98 mg/dl (70-99); Potassium 4.3 mmol/L (3.5-5.1); Sodium 141 mmol/L (135-145); eGFR > 60.00
[2023-11-09 07:00] VITALS: BP 127/78
[2023-11-09] MEDS: LIORESAL 20 MG PO ×3 (08:10→22:53)
[2023-11-09] MEDS: ZESTRIL 10 MG PO (08:10)
[2023-11-09] MEDS: TOPROL XL 25 MG PO ×2 (08:10→22:54)
[2023-11-09] MEDS: NEURONTIN 300 MG PO ×2 (08:10→22:53)
[2023-11-09] MEDS: ASPIR LOW (ENTERIC COATED) 81 MG PO (08:10)
[2023-11-09] MEDS: BIKTARVY 50-200-25 MG TABLET 1 TABLET PO (08:10)
[2023-11-09] MEDS: PROTONIX 40 MG PO (08:10)
[2023-11-09] MEDS: VITAMIN B1 100 MG PO (08:10)
[2023-11-09] MEDS: KEPPRA 1000 MG PO ×2 (08:11→22:52)
[2023-11-09] MEDS: VIMPAT 150 MG PO ×2 (08:11→22:53)
[2023-11-09] MEDS: LEXAPRO 20 MG PO (08:11)
[2023-11-09] MEDS: ZYRTEC 10 MG PO (08:36)
[2023-11-09] MEDS: TYLENOL 650 MG PO ×2 (08:36→17:25)
--- NOTE | 2023-11-09 09:35 | W.PN.HOSP.TC ---
Today's Communication/Plan
-
Medically stable for discharge
Assessment / Plan
Assessment / Plan
CVS: S1-S2 normal
Chest: CTA B/L
Abdomen: Soft, NT / Bowel sounds present
Extremities: No edema, normal pulses
GLOBAL SUPPLY CHAIN DIRECTOR: right hemiopalgia, flexion deformity of fingers,
#Found down with concern of CVA/TIA r/o breakthrough seizures
s/p TNK
serial CT head neg for acute findings
MRI, MRA head/neck could not be obtained at this time since patient is agitated and cannot be cleared due to pacemaker. per neurology no further need as CT was done and was neg
PO Keppra and lacosamide
EEG without seizure
Check urine drug screen + THC
unclear what driven patient's symptoms; could be 2/2 recent vaping event, possible
cw aspirin; restarted
Patient is now following commands and can make her needs known though nodding head appropriately, tries to communicate awake and alert. Following all instructions
#History of depression and anxiety
11/04 was agitated and was on restraints; now calm. able to tolerate PO; does have aphasia at baseline
cw Ativan as needed
Seen by speech again, okay for regular diet
#UTI ruled out
urine cx contaminant
dc abx and monitor; no further sx
#Hx of CVA with right hemiparesis and aphasia
On baclofen for muscle spasm
#hx of seizures-continue Keppra and lacosamide, also on Klonopin as needed for seizures
#HIV- Biktarvy
#MDD
#History of pacemaker
# Depression-continue Lexapro, as needed lorazepam for anxiety
# History of migraines-on Nurtec, Excedrin and Compazine as needed
#Essential HTN-Lisinopril,metoprolol,Hydralazine prn
#Hyperlipidemia-continue atorvastatin
#DVT Prophylaxis -Lovenox
#Full code
POA is court appointed guardian for decisions. However per guardian daughter is aware of her history that can be reached at [phone]
ICU attending had extensive discussion with power of drywall stripper helper on this hospitalization. Power of drywall stripper helper and patient son and daughter will be reviewing and will decide on CODE STATUS.
11/04:-Spoke with patient guardian who is POA and will speak with patient family again today.
11/05: Spoke with guardian; he doesn't not want patient to return back to [facility]. manager specialty working on new placement. CODE STATUS remains full code
11/06: Spoke with Guardian; does not want patient to go back to [facility]. Will need new placement. CM aware.
D/W Case management- Placement awaited.
Anticipated Discharge: Within 24 hours
Subjective/Interval History
-
Date of Service: November 09, 2023
Objective Data
-
Labs:
Laboratory Results
11/09/23
06:04
WBC 6.1
Hgb 11.2 L
Hct 33.4 L
Plt Count 191
Sodium 141
Potassium 4.3
Chloride 110 H
Carbon Dioxide 25
BUN 19 H
Creatinine 0.8
Glucose 98
Calcium 8.9
Vital Signs:
Vital Signs
Temp Pulse Resp BP Pulse Ox
98.8 F 79 18 127/78 96
11/09/23 07:00 11/09/23 07:00 11/09/23 07:00 11/09/23 07:00 11/09/23 07:00
I&O
11/08/23 11/09/23 11/10/23
06:59 06:59 06:59
Intake Total 1200 / 1200 1440 / 1440
Output Total 800 / 800
Balance 400 / 400 1440 / 1440
[2023-11-09 10:33] LABS: HCG, Serum Qualitative Screen Negative
[2023-11-09 11:26] VITALS: BP 130/78; PULSE 87
[2023-11-09 15:00] VITALS: BP 108/68
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
--- NOTE | 2023-11-09 16:43 | W.PN.ID1 ---
Date of Service
Date of Service: November 09, 2023
Today's Communication
Sign off.
Assessment / Plan
HIV
Encephalopathy
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
HTN
Seizure disorder
Anxiety/depression
Migraines
HIV (Dx: 2019. Unknown VL/CD4. On Biktarvy)
Recommendations:
Patient afebrile since admission. WBC normal.
Doing well off antibiotics.
At this time, the patient appears to be doing well. Patient taking oral medications.
Biktarvy reinitiated.
According to reviewed notes, patient will not be returning to [facility].
Patient should have repeat HIV labs (HIV viral load; CD4 count) at some point in time, although not necessary at the moment.
Patient will need to follow-up with HIV provider following discharge.
Little more to offer from a Infectious Diseases standpoint.
Will see again at your request. Please call with any questions.
����������������������������������������������������������
Chief Complaint
-: Other (HIV)
Subjective / Review of Systems
Review of Systems: No Fever and No Chills
Vital Signs / Physical Exam
Vital Signs
Vital Signs
Temp Pulse Resp BP Pulse Ox
98.7 F 87 18 108/68 98
11/09/23 15:00 11/09/23 15:00 11/09/23 15:00 11/09/23 15:00 11/09/23 15:00
Physical Exam
Constitutional: No Acute Distress, Comfortable, Chronically Ill and Non-toxic
Cardiovascular: S1/S2; Negative S3/S4
Pulmonary: Non Labored
Gastrointestinal: Soft and Non Tender
Neurological: Awake and Alert
Psychological: Calm
Objective Data
Lab Data
Lab Results
11/09/23 06:04
11/09/23 06:04
PT Cancelled 11/04/23 06:00
INR Cancelled 11/04/23 06:00
APTT Cancelled 11/04/23 06:00
Estimated Creat Clear 85 ml/min 11/09/23 06:04
Total Bilirubin 0.5 mg/dl (0.2-1.3) 11/04/23 03:44
AST 21 U/L (14-36) 11/04/23 03:44
ALT 21 U/L (0-35) 11/04/23 03:44
Alkaline Phosphatase 69 U/L (38-126) 11/04/23 03:44
Most recent labs reviewed.
Micro Results:
11/03/23 22:36 Blood Culture - Final
Blood/Venous No Growth - Final Report
11/03/23 21:40 Urine Culture - Final
Urine
11/03/23 22:36 Nasal Screen MRSA (PCR) - Final
Nose MRSA not detected - performed by PCR methodology.
Imaging:
11/03/2023 CXR (portable): No acute infiltrate noted. (Film personally viewed)
[2023-11-09] MEDS: LIPITOR 40 MG PO (17:15)
[2023-11-09] MEDS: LOVENOX SC (17:27)
[2023-11-10] MEDS: TYLENOL 650 MG PO ×3 (05:45→22:13)
[2023-11-10 07:00] VITALS: BP 119/79
[2023-11-10] MEDS: LEXAPRO 20 MG PO (10:09)
[2023-11-10] MEDS: VIMPAT 150 MG PO ×2 (10:09→21:46)
[2023-11-10] MEDS: KEPPRA 1000 MG PO ×2 (10:10→21:42)
[2023-11-10] MEDS: ZYRTEC 10 MG PO (10:10)
[2023-11-10] MEDS: ASPIR LOW (ENTERIC COATED) 81 MG PO (10:10)
[2023-11-10] MEDS: ZESTRIL 10 MG PO (10:10)
[2023-11-10] MEDS: BIKTARVY 50-200-25 MG TABLET 1 TABLET PO (10:11)
[2023-11-10] MEDS: LIORESAL 20 MG PO ×3 (10:11→21:42)
[2023-11-10] MEDS: TOPROL XL 25 MG PO ×2 (10:11→21:50)
[2023-11-10] MEDS: PROTONIX 40 MG PO (10:11)
[2023-11-10] MEDS: NEURONTIN 300 MG PO ×2 (10:11→21:43)
[2023-11-10] MEDS: VITAMIN B1 100 MG PO (10:11)
--- NOTE | 2023-11-10 11:15 | W.PN.HOSP.TC ---
Today's Communication/Plan
-
Medically stable for discharge to rehab
Assessment / Plan
Assessment / Plan
CVS: S1-S2 normal
Chest: CTA B/L
Abdomen: Soft, NT / Bowel sounds present
Extremities: No edema, normal pulses
MATHEMATICIAN RESEARCH: right hemiopalgia, flexion deformity of fingers,
#Found down with concern of CVA/TIA r/o breakthrough seizures
s/p TNK
serial CT head neg for acute findings
MRI, MRA head/neck could not be obtained at this time since patient is agitated and cannot be cleared due to pacemaker. per neurology no further need as CT was done and was neg
PO Keppra and lacosamide
EEG without seizure
Check urine drug screen + THC
unclear what driven patient's symptoms; could be 2/2 recent vaping event, possible
cw aspirin; restarted
Patient is now following commands and can make her needs known though nodding head appropriately, tries to communicate awake and alert. Following all instructions
#History of depression and anxiety
11/04 was agitated and was on restraints; now calm. able to tolerate PO; does have aphasia at baseline
cw Ativan as needed
Seen by speech again, okay for regular diet
#UTI ruled out
urine cx contaminant
dc abx and monitor; no further sx
#Hx of CVA with right hemiparesis and aphasia
On baclofen for muscle spasm
#hx of seizures-continue Keppra and lacosamide, also on Klonopin as needed for seizures
#HIV- Biktarvy
#MDD
#History of pacemaker
# Depression-continue Lexapro, as needed lorazepam for anxiety
# History of migraines-on Nurtec, Excedrin and Compazine as needed
#Essential HTN-Lisinopril,metoprolol,Hydralazine prn
#Hyperlipidemia-continue atorvastatin
#DVT Prophylaxis -Lovenox
#Full code
JESSA is court appointed guardian for decisions. However per guardian daughter is aware of her history that can be reached at [phone]
ICU attending had extensive discussion with power of slackline operator on this hospitalization. Power of slackline operator and patient son and daughter will be reviewing and will decide on CODE STATUS.
11/04:-Spoke with patient guardian who is POA and will speak with patient family again today.
11/05: Spoke with guardian; he doesn't not want patient to return back to [facility]. contract administration manager working on new placement. CODE STATUS remains full code
11/06: Spoke with Guardian; does not want patient to go back to [facility]. Will need new placement. CM aware.
D/W Case management- Placement awaited.
11/10/2023- Called Guardian - went to message
Anticipated Discharge: Within 24 hours
Subjective/Interval History
-
Date of Service: November 10, 2023
Objective Data
-
Vital Signs:
Vital Signs
Temp Pulse Resp BP Pulse Ox
98.5 F 78 18 119/79 97
11/10/23 07:00 11/10/23 07:00 11/10/23 07:00 11/10/23 07:00 11/10/23 07:00
I&O
11/09/23 11/10/23 11/11/23
06:59 06:59 06:59
Intake Total 1440 / 1440 2340 / 2340
Balance 1440 / 1440 2340 / 2340
[2023-11-10 12:51] VITALS: BP 142/89; PULSE 70; O2SAT 100
--- NOTE | 2023-11-10 14:50 | CM ---
Calls placed to [facility] and left for Porsche Levin, risk control consultant requesting a return call regarding referral sent via [facility].
I called and spoke with Tammy at [facility] (facility is called [facility]). Tammy will look at [facility] and return my call after review.
CM will continue to follow for residential detention placement.
[2023-11-10 15:00] VITALS: BP 124/82
[2023-11-10] MEDS: LIPITOR 40 MG PO (17:30)
[2023-11-10] MEDS: LOVENOX SC (17:37)
[2023-11-10 23:16] VITALS: BP 111/69
[2023-11-11] MEDS: TYLENOL 650 MG PO ×2 (02:15→15:22)
[2023-11-11 06:11] LABS: Hematocrit 31.1 % (37.0-47.0); Hemoglobin 10.3 g/dL (12.0-16.0); Mean Corp Hgb Conc. 33.1 g/dL (33.0-37.0); Mean Corpuscular Hgb 32.3 pg (27.0-31.0); Mean Corpuscular Volume 97.5 fL (81.0-99.0); Mean Platelet Volume 9.9 fL (7.4-10.4); Platelet Count 170 10^3/uL (130-400); Red Blood Cell Count 3.19 10^6/uL (4.20-5.40); White Blood Cell Count 5.8 10^3/uL (4.8-10.8)
[2023-11-11 06:39] LABS: Blood Urea Nitrogen 18 mg/dl (7-17); Carbon Dioxide 23 mmol/L (22-30); Chloride 108 mmol/L (98-107); Estimated Creatinine Clearance 98 ml/min; Glucose 95 mg/dl (70-99); Magnesium 1.9 mg/dl (1.6-2.3); Potassium 4.2 mmol/L (3.5-5.1); Sodium 139 mmol/L (135-145); eGFR > 60.00
[2023-11-11 07:00] VITALS: BP 137/85
[2023-11-11] MEDS: VIMPAT 150 MG PO ×2 (07:55→20:07)
[2023-11-11] MEDS: BIKTARVY 50-200-25 MG TABLET 1 TABLET PO (07:55)
[2023-11-11] MEDS: KEPPRA 1000 MG PO ×2 (07:57→20:07)
[2023-11-11] MEDS: ZESTRIL 10 MG PO (07:57)
[2023-11-11] MEDS: LEXAPRO 20 MG PO (07:57)
[2023-11-11] MEDS: TOPROL XL 25 MG PO ×2 (07:57→20:08)
[2023-11-11] MEDS: VITAMIN B1 100 MG PO (07:58)
[2023-11-11] MEDS: ASPIR LOW (ENTERIC COATED) 81 MG PO (07:58)
[2023-11-11] MEDS: NEURONTIN 300 MG PO ×2 (07:58→20:07)
[2023-11-11] MEDS: ZYRTEC 10 MG PO (07:59)
[2023-11-11] MEDS: PROTONIX 40 MG PO (07:59)
[2023-11-11] MEDS: LIORESAL 20 MG PO ×3 (07:59→21:45)
--- NOTE | 2023-11-11 11:46 | CM ---
Addendum entered by Marbella Esther 11/11/23 14:58:
Received call back from Justin Diaz - aware of status regarding SNF options. Will broaden area for SNF's via [facility]
Plan - SNF/NH placement pending acceptance
Addendum entered by Marbella Santana 11/11/23 13:56:
Called legal guardian Justin Diaz [phone], on requesting call back to discuss SNF options
Addendum entered by Marbella Santana 11/11/23 13:51:
Called [facility]
Informed by Kenrick that Dorothy, telehealth coordinator is not available. Left message for return call with Name and Phone number
Original Note:
Case management following for d/c planning
Pt for SNF - declined by located within [facility]
Declined by Sorin in [facility]
Called [facility] [phone]
Spoke with Dorothy in admissions - reports referral is under review. Asked for CM to return call for determination
[2023-11-11 15:00] VITALS: BP 128/77
--- NOTE | 2023-11-11 15:51 | W.PN.HOSP.TC ---
Today's Communication/Plan
-
dispo planning
Assessment / Plan
Assessment / Plan
CVS: S1-S2 normal
Chest: CTA B/L
Abdomen: Soft, NT / Bowel sounds present
Extremities: No edema, normal pulses
MANUFACTURING MAINTENANCE MANAGER: right hemiopalgia, flexion deformity of fingers,
#Found down with concern of CVA/TIA r/o breakthrough seizures
s/p TNK
serial CT head neg for acute findings
MRI, MRA head/neck could not be obtained at this time since patient is agitated and cannot be cleared due to pacemaker. per neurology no further need as CT was done and was neg
PO Keppra and lacosamide
EEG without seizure
Check urine drug screen + THC
unclear what driven patient's symptoms; could be 2/2 recent vaping event, possible
cw aspirin; restarted
Patient is now following commands and can make her needs known though nodding head appropriately, tries to communicate awake and alert. Following all instructions
#History of depression and anxiety
11/04 was agitated and was on restraints; now calm. able to tolerate PO; does have aphasia at baseline
cw Ativan as needed
Seen by speech again, okay for regular diet
#UTI ruled out
urine cx contaminant
dc abx and monitor; no further sx
#Hx of CVA with right hemiparesis and aphasia
On baclofen for muscle spasm
#hx of seizures-continue Keppra and lacosamide, also on Klonopin as needed for seizures
#HIV- Biktarvy
#MDD
#History of pacemaker
# Depression-continue Lexapro, as needed lorazepam for anxiety
# History of migraines-on Nurtec, Excedrin and Compazine as needed
#Essential HTN-Lisinopril,metoprolol,Hydralazine prn
#Hyperlipidemia-continue atorvastatin
#DVT Prophylaxis -Lovenox
#Full code
POA is court appointed guardian for decisions. However per guardian daughter is aware of her history that can be reached at [phone]
ICU attending had extensive discussion with power of state's attorney on this hospitalization. Power of state's attorney and patient son and daughter will be reviewing and will decide on CODE STATUS.
11/04:-Spoke with patient guardian who is POA and will speak with patient family again today.
11/05: Spoke with guardian; he doesn't not want patient to return back to [facility]. marketing program manager working on new placement. CODE STATUS remains full code
11/06: Spoke with Guardian; does not want patient to go back to [facility]. Will need new placement. CM aware.
D/W Case management- Placement awaited.
11/10/2023- Called Guardian - went to message
Anticipated Discharge: Within 24 hours
Subjective/Interval History
-
Date of Service: November 11, 2023
patient trying to tell me something about [facility]
Objective Data
-
Labs:
Laboratory Results
11/11/23
05:47
WBC 5.8
Hgb 10.3 L
Hct 31.1 L
Plt Count 170
Sodium 139
Potassium 4.2
Chloride 108 H
Carbon Dioxide 23
BUN 18 H
Creatinine 0.7
Glucose 95
Calcium 9.0
Vital Signs:
Vital Signs
Temp Pulse Resp BP Pulse Ox
98.5 F 67 19 128/77 97
11/11/23 15:00 11/11/23 15:00 11/11/23 07:00 11/11/23 15:00 11/11/23 15:00
I&O
11/10/23 11/11/23 11/12/23
06:59 06:59 06:59
Intake Total 2340 / 2340 1140 / 1140
Balance 2340 / 2340 1140 / 1140
Review of Systems
-
Unable to obtain full review of systems at this time due to: Patient Non-verbal
History Source: Patient
Physical Exam
-
General: No Apparent Distress
HEENT: Normocephalic and Atraumatic
Respiratory: Clear to Auscultation
Cardiac: Regular Rhythm and S1/S2
Breast: Deferred by me
GI: Soft, Nontender and Nondistended
Rectal: Deferred by Provider
Genito-urinary: Deferred by me
Musculoskeletal: No Clubbing, No Cyanosis and No Edema
Skin: Warm
Neuro: Awake and Other (severe dysarthria)
Psych: Calm
Data Reviewed
-
Diagnostic Radiology: Report Reviewed by me
Labs: Labs Reviewed by me
[2023-11-11] MEDS: LOVENOX SC (17:19)
[2023-11-11] MEDS: LIPITOR 40 MG PO (17:44)
[2023-11-11] MEDS: ATIVAN 0.5 MG PO (20:08)
[2023-11-11 23:00] VITALS: BP 117/66
[2023-11-12 07:47] VITALS: BP 124/73
[2023-11-12] MEDS: PROTONIX 40 MG PO (09:24)
[2023-11-12] MEDS: ASPIR LOW (ENTERIC COATED) 81 MG PO (09:24)
[2023-11-12] MEDS: VITAMIN B1 100 MG PO (09:25)
[2023-11-12] MEDS: LEXAPRO 20 MG PO (09:25)
[2023-11-12] MEDS: TYLENOL 650 MG PO ×2 (09:25→15:51)
[2023-11-12] MEDS: KEPPRA 1000 MG PO ×2 (09:25→19:26)
[2023-11-12] MEDS: BIKTARVY 50-200-25 MG TABLET 1 TABLET PO (09:25)
[2023-11-12] MEDS: NEURONTIN 300 MG PO ×2 (09:25→19:26)
[2023-11-12] MEDS: ZYRTEC 10 MG PO (09:25)
[2023-11-12] MEDS: VIMPAT 150 MG PO ×2 (09:26→19:26)
[2023-11-12] MEDS: LIORESAL 20 MG PO ×3 (09:26→21:49)
[2023-11-12] MEDS: ZESTRIL 10 MG PO (09:26)
[2023-11-12] MEDS: TOPROL XL 25 MG PO ×2 (09:26→19:26)
--- NOTE | 2023-11-12 09:27 | W.PN.HOSP.TC ---
Today's Communication/Plan
-
check UA for suprapubic pain
dispo planning
Assessment / Plan
Assessment / Plan
CVS: S1-S2 normal
Chest: CTA B/L
Abdomen: Soft, NT / Bowel sounds present
Extremities: No edema, normal pulses
ICER MACHINE OPERATOR: right hemiopalgia, flexion deformity of fingers,
#Found down with concern of CVA/TIA r/o breakthrough seizures
s/p TNK
serial CT head neg for acute findings
MRI, MRA head/neck could not be obtained at this time since patient is agitated and cannot be cleared due to pacemaker. per neurology no further need as CT was done and was neg
PO Keppra and lacosamide
EEG without seizure
Check urine drug screen + THC
unclear what driven patient's symptoms; could be 2/2 recent vaping event, possible
cw aspirin; restarted
Patient is now following commands and can make her needs known though nodding head appropriately, tries to communicate awake and alert. Following all instructions
#History of depression and anxiety
11/04 was agitated and was on restraints; now calm. able to tolerate PO; does have aphasia at baseline
cw Ativan as needed
Seen by speech again, okay for regular diet
#suprapubic pain
-recheck UA
#Hx of CVA with right hemiparesis and aphasia
On baclofen for muscle spasm
#hx of seizures-continue Keppra and lacosamide, also on Klonopin as needed for seizures
#HIV- Biktarvy
#MDD
#History of pacemaker
# Depression-continue Lexapro, as needed lorazepam for anxiety
# History of migraines-on Nurtec, Excedrin and Compazine as needed
#Essential HTN-Lisinopril,metoprolol,Hydralazine prn
#Hyperlipidemia-continue atorvastatin
#DVT Prophylaxis -Lovenox
#Full code
POA is court appointed guardian for decisions. However per guardian daughter is aware of her history that can be reached at [phone]
ICU attending had extensive discussion with power of collections attorney on this hospitalization. Power of collections attorney and patient son and daughter will be reviewing and will decide on CODE STATUS.
11/04:-Spoke with patient guardian who is POA and will speak with patient family again today.
11/05: Spoke with guardian; he doesn't not want patient to return back to [facility]. mobile product manager working on new placement. CODE STATUS remains full code
11/06: Spoke with Guardian; does not want patient to go back to [facility]. Will need new placement. CM aware.
D/W Case management- Placement awaited.
11/10/2023- Called Guardian - went to message
Anticipated Discharge: 24 - 48 hours
Subjective/Interval History
-
Date of Service: November 12, 2023
states she is doing OK
some suprapubic pain. states she is having normal BM
Objective Data
-
Vital Signs:
Vital Signs
Temp Pulse Resp BP Pulse Ox
98.0 F 70 17 124/73 98
11/12/23 07:47 11/12/23 07:47 11/12/23 07:47 11/12/23 07:47 11/12/23 07:47
I&O
11/11/23 11/12/23 11/13/23
06:59 06:59 06:59
Intake Total 1140 / 1140 540 / 540 240 / 240
Balance 1140 / 1140 540 / 540 240 / 240
Review of Systems
-
History Source: Patient
All other systems: Reviewed and negative
Physical Exam
-
General: No Apparent Distress
HEENT: Normocephalic and Atraumatic
Respiratory: Clear to Auscultation
Cardiac: Regular Rhythm and S1/S2
Breast: Deferred by me
GI: Soft, Nondistended and Other (tenderness suprapubic region )
Rectal: Deferred by Provider
Genito-urinary: Deferred by me
Musculoskeletal: No Clubbing, No Cyanosis and No Edema
Skin: Warm
Neuro: Awake and Other (severe dysarthria)
Psych: Calm
Data Reviewed
-
Diagnostic Radiology: Report Reviewed by me
Labs: Labs Reviewed by me
[2023-11-12 15:42] LABS: Urine Albumin Negative (Neg - Trace); Urine Bilirubin Negative (Negative); Urine Character Clear (Clear); Urine Color Yellow; Urine Glucose Negative (Negative); Urine Ketone Negative (Negative); Urine Leukocyte Negative (Negative); Urine Nitrite Negative (Negative); Urine Occult Blood 1+ (Negative); Urine Urobilinogen Negative (Neg - 1+)
[2023-11-12 15:48] VITALS: BP 101/65
[2023-11-12 15:55] LABS: Urine Bacteria Few (Negative); Urine Squamous Cell 26-30 /LPF (Few); Urine White Cell 0-2 /HPF (0-5)
--- NOTE | 2023-11-12 16:16 | PTCARENOTE ---
PT educated on high fall risk, pt shook head and understood the risk. She appears steady independently. Pt has safely ambulated by her self from bed to chair, to bathroom into hallways. Pt was able to effectivly communicate all of her needs. PT
currently resting in bed with call tidwell in hand.
[2023-11-12] MEDS: LOVENOX SC ×2 (17:15→17:17)
[2023-11-12] MEDS: MYLICON 80 MG PO (17:15)
[2023-11-12] MEDS: LIPITOR 40 MG PO (17:15)
[2023-11-12] MEDS: ATIVAN 0.5 MG PO (19:26)
[2023-11-12 23:00] VITALS: BP 125/69
[2023-11-13 07:00] VITALS: BP 115/78
[2023-11-13] MEDS: LEXAPRO 20 MG PO (08:38)
[2023-11-13] MEDS: BIKTARVY 50-200-25 MG TABLET 1 TABLET PO (08:38)
[2023-11-13] MEDS: PROTONIX 40 MG PO (08:38)
[2023-11-13] MEDS: TOPROL XL 25 MG PO ×2 (08:38→20:02)
[2023-11-13] MEDS: VITAMIN B1 100 MG PO (08:39)
[2023-11-13] MEDS: ASPIR LOW (ENTERIC COATED) 81 MG PO (08:39)
[2023-11-13] MEDS: NEURONTIN 300 MG PO ×2 (08:39→20:02)
[2023-11-13] MEDS: ZESTRIL 10 MG PO (08:39)
[2023-11-13] MEDS: LIORESAL 20 MG PO ×3 (08:39→21:36)
[2023-11-13] MEDS: VIMPAT 150 MG PO ×2 (08:39→20:01)
[2023-11-13] MEDS: KEPPRA 1000 MG PO ×2 (08:39→20:02)
[2023-11-13] MEDS: ZYRTEC 10 MG PO (08:40)
[2023-11-13] MEDS: ATIVAN 0.5 MG PO ×3 (08:42→20:02)
[2023-11-13] MEDS: TYLENOL 650 MG PO ×3 (08:42→21:36)
--- NOTE | 2023-11-13 11:31 | W.PN.HOSP.TC ---
Today's Communication/Plan
-
abdominal x-ray
repeat labs
Assessment / Plan
Assessment / Plan
CVS: S1-S2 normal
Chest: CTA B/L
Abdomen: Soft, NT / Bowel sounds present
Extremities: No edema, normal pulses
CIRCUIT COURT CLERK: right hemiopalgia, flexion deformity of fingers,
#Found down with concern of CVA/TIA r/o breakthrough seizures
s/p TNK
serial CT head neg for acute findings
MRI, MRA head/neck could not be obtained at this time since patient is agitated and cannot be cleared due to pacemaker. per neurology no further need as CT was done and was neg
PO Keppra and lacosamide
EEG without seizure
Check urine drug screen + THC
unclear what driven patient's symptoms; could be 2/2 recent vaping event, possible
cw aspirin; restarted
Patient is now following commands and can make her needs known though nodding head appropriately, tries to communicate awake and alert. Following all instructions
#History of depression and anxiety
11/04 was agitated and was on restraints; now calm. able to tolerate PO; does have aphasia at baseline
cw Ativan as needed (oral)
Seen by speech again, okay for regular diet
#suprapubic pain
-recheck UA - no inflammation
-gas-x may have relieved pain (no pain overnight)
-repeat labs and obtain abdominal x-ray today
Microcytic Hematuria
-work-up as outpatient
#Hx of CVA with right hemiparesis and aphasia
On baclofen for muscle spasm
#hx of seizures-continue Keppra and lacosamide, also on Klonopin as needed for seizures
#HIV- Biktarvy
#MDD
#History of pacemaker
# Depression-continue Lexapro, as needed lorazepam for anxiety
# History of migraines-on Nurtec, Excedrin and Compazine as needed
#Essential HTN-Lisinopril,metoprolol,Hydralazine prn
#Hyperlipidemia-continue atorvastatin
#DVT Prophylaxis -Lovenox
#Full code
JESSA is court appointed guardian for decisions. However per guardian daughter is aware of her history that can be reached at [phone]
ICU attending had extensive discussion with power of insurance defense attorney on this hospitalization. Power of insurance defense attorney and patient son and daughter will be reviewing and will decide on CODE STATUS.
11/04:-Spoke with patient guardian who is POA and will speak with patient family again today.
11/05: Spoke with guardian; he doesn't not want patient to return back to [facility]. clinical product manager working on new placement. CODE STATUS remains full code
11/06: Spoke with Guardian; does not want patient to go back to [facility]. Will need new placement. CM aware.
D/W Case management- Placement awaited.
11/10/2023- Called Guardian - went to message
Anticipated Discharge: 24 - 48 hours
Subjective/Interval History
-
Date of Service: November 13, 2023
lower abdominal pain
received gas-x yesterday and overnight no pain
Objective Data
-
Labs:
Laboratory Results
11/13/23
11:27
WBC Pending
Hgb Pending
Hct Pending
Plt Count Pending
Sodium Pending
Potassium Pending
Chloride Pending
Carbon Dioxide Pending
BUN Pending
Creatinine Pending
Glucose Pending
Calcium Pending
Total Bilirubin Pending
AST Pending
ALT Pending
Alkaline Phosphatase Pending
Vital Signs:
Vital Signs
Temp Pulse Resp BP Pulse Ox
98.2 F 65 14 115/78 95
11/13/23 07:00 11/13/23 07:00 11/12/23 23:00 11/13/23 07:00 11/13/23 07:00
I&O
11/12/23 11/13/23 11/14/23
06:59 06:59 06:59
Intake Total 540 / 540 1260 / 1260 720 / 720
Balance 540 / 540 1260 / 1260 720 / 720
Review of Systems
-
History Source: Patient
All other systems: Reviewed and negative
Physical Exam
-
General: No Apparent Distress
HEENT: Normocephalic and Atraumatic
Respiratory: Clear to Auscultation
Cardiac: Regular Rhythm and S1/S2
Breast: Deferred by me
GI: Soft, Nondistended and Other (tenderness suprapubic region )
Rectal: Deferred by Provider
Genito-urinary: Deferred by me
Musculoskeletal: No Clubbing, No Cyanosis and No Edema
Skin: Warm
Neuro: Awake and Other (severe dysarthria; no receptive aphasia, understands questions )
Psych: Calm
Data Reviewed
-
Diagnostic Radiology: Report Reviewed by me
Labs: Labs Reviewed by me
[2023-11-13 12:33] LABS: % Basophils 0.8 % (0-2); % Eosinophils 5.1 % (0-6); % Immature Granulocytes 0.5 % (0-0.5); % Lymphocytes 36.3 % (20.5-51.1); % Monocytes 6.9 % (1.7-9.3); % Neutrophils 50.4 % (42.2-75.2); Absolute Basophils 0.1 10^3/uL (0-0.2); Absolute Eosinophils 0.3 10^3/uL (0-0.7); Absolute Lymphocytes 2.3 10^3/uL (1.2-3.4); Absolute Monocytes 0.4 10^3/uL (0.1-0.6); Absolute Neutrophils 3.2 10^3/uL (1.4-6.5); Hemoglobin 11.3 g/dL (12.0-16.0); Mean Corp Hgb Conc. 33.2 g/dL (33.0-37.0); Mean Corpuscular Hgb 32.3 pg (27.0-31.0); Mean Corpuscular Volume 97.1 fL (81.0-99.0); Mean Platelet Volume 9.8 fL (7.4-10.4); Nucleated Red Blood Cells % 0 %; Platelet Count 226 10^3/uL (130-400); White Blood Cell Count 6.3 10^3/uL (4.8-10.8)
[2023-11-13 12:43] LABS: ALT (SGPT) 22 U/L (0-35); AST (SGOT) 28 U/L (14-36); Albumin 4.1 g/dl (3.5-5.0); Alkaline Phosphatase 64 U/L (38-126); Blood Urea Nitrogen 21 mg/dl (7-17); Calcium 9.5 mg/dl (8.4-10.2); Carbon Dioxide 22 mmol/L (22-30); Chloride 106 mmol/L (98-107); Estimated Creatinine Clearance 76 ml/min; Glucose 94 mg/dl (70-99); Potassium 4.1 mmol/L (3.5-5.1); Sodium 139 mmol/L (135-145); Total Bilirubin 0.3 mg/dl (0.2-1.3); Total Protein 6.6 g/dl (6.3-8.2); eGFR > 60.00
--- NOTE | 2023-11-13 14:56 | PTCARENOTE ---
PT agitated and found on phone with 911 . She was unable to communicate to 911. I asked if i could talk to the person on phone, pt handed me the phone. I did confirm with the dial lathe operator that there was no emergency and that the patient had a
stroke with expressive aphasia and that i needed some time to communicate with the patient in order to determine what the emergency was that she called for. i did confirm there was not immediate emergency needing the dial lathe operator at this time. I
spent time with the patient. Pt showed me several pictures of two women from prior intermediate and dirty showering conditions, feces all over. She did not want me to to send her there. She was able to communicate with me that Justin is her
appointed guardian and gossips and will make her go back to intermediate. At this point, i called her POA and CM. CM informed me that she will not be going back to the [facility] and that the POA is in agreement with this. I spoke to the patient
and shared with her the plan that Justin her POA and CM Will not allow her to go to intermediate. Pt given ativan and she is now sleeping comfortably. Xray called for pt to go for abdom xray and pt refused. notified.
[2023-11-13 15:00] VITALS: BP 122/78
[2023-11-13 16:39] VITALS: BP 122/78
[2023-11-13] MEDS: LOVENOX SC (16:49)
[2023-11-13] MEDS: LIPITOR 40 MG PO (16:49)
[2023-11-13 23:00] VITALS: BP 129/69
[2023-11-14] MEDS: ATIVAN 0.5 MG PO ×2 (05:59→14:03)
[2023-11-14] MEDS: TYLENOL 650 MG PO (05:59)
[2023-11-14 07:00] VITALS: BP 115/70
[2023-11-14] MEDS: LIORESAL 20 MG PO ×2 (09:15→15:59)
[2023-11-14] MEDS: TOPROL XL 25 MG PO (09:15)
[2023-11-14] MEDS: PROTONIX 40 MG PO (09:15)
[2023-11-14] MEDS: VIMPAT 150 MG PO (09:16)
[2023-11-14] MEDS: NEURONTIN 300 MG PO (09:16)
[2023-11-14] MEDS: ASPIR LOW (ENTERIC COATED) 81 MG PO (09:17)
[2023-11-14] MEDS: BIKTARVY 50-200-25 MG TABLET 1 TABLET PO (09:17)
[2023-11-14] MEDS: KEPPRA 1000 MG PO (09:18)
[2023-11-14] MEDS: ZYRTEC 10 MG PO (09:18)
[2023-11-14] MEDS: ZESTRIL 10 MG PO (09:20)
[2023-11-14] MEDS: LEXAPRO 20 MG PO (09:20)
[2023-11-14] MEDS: VITAMIN B1 100 MG PO (09:21)
--- NOTE | 2023-11-14 11:49 | W.PN.HOSP.TC ---
Addendum entered and electronically signed by Caleb Barth MD 11/14/23 13:27:
Time of discharge 37-minutes
Original Note:
Today's Communication/Plan
-
monitor vitals
see plan
awaiting placement
cw antiepileptics
Assessment / Plan
Assessment / Plan
CVS: S1-S2 normal
Chest: CTA B/L
Abdomen: Soft, NT / Bowel sounds present
Extremities: No edema, normal pulses
MANAGER RETAIL SALES: right hemiopalgia, flexion deformity of fingers,
#Found down with concern of CVA/TIA r/o breakthrough seizures
s/p TNK
serial CT head neg for acute findings
MRI, MRA head/neck could not be obtained at this time since patient is agitated and cannot be cleared due to pacemaker. per neurology no further need as CT was done and was neg
PO Keppra and lacosamide
EEG without seizure
Check urine drug screen + THC
unclear what driven patient's symptoms; could be 2/2 recent vaping event, possible
cw aspirin; restarted
Patient is now following commands and can make her needs known though nodding head appropriately, tries to communicate awake and alert. Following all instructions
#History of depression and anxiety
11/04 was agitated and was on restraints; now calm. able to tolerate PO; does have aphasia at baseline
cw Ativan as needed (oral)
Seen by speech again, okay for regular diet
#suprapubic pain
-recheck UA - no inflammation
-gas-x may have relieved pain (no pain overnight)
now improving; having BM;s
Microcytic Hematuria
-work-up as outpatient
#Hx of CVA with right hemiparesis and aphasia
On baclofen for muscle spasm
#hx of seizures-continue Keppra and lacosamide, also on Klonopin as needed for seizures
#HIV- Biktarvy
#MDD
#History of pacemaker
# Depression-continue Lexapro, as needed lorazepam for anxiety
# History of migraines-on Nurtec, Excedrin and Compazine as needed
#Essential HTN-Lisinopril,metoprolol,Hydralazine prn
#Hyperlipidemia-continue atorvastatin
#DVT Prophylaxis -Lovenox
#Full code
[place] is court appointed guardian for decisions. However per guardian daughter is aware of her history that can be reached at [phone]
ICU attending had extensive discussion with power of state attorney on this hospitalization. Power of state attorney and patient son and daughter will be reviewing and will decide on CODE STATUS.
11/04:-Spoke with patient guardian who is POA and will speak with patient family again today.
11/05: Spoke with guardian; he doesn't not want patient to return back to [facility]. shop manager working on new placement. CODE STATUS remains full code
11/06: Spoke with Guardian; does not want patient to go back to [facility]. Will need new placement. CM aware.
D/W Case management- Placement awaited.
11/10/2023- Called Guardian - went to message
Anticipated Discharge: Today
Subjective/Interval History
-
Date of Service: November 14, 2023
denies nausea
Objective Data
-
Vital Signs:
Vital Signs
Temp Pulse Resp BP Pulse Ox
98.5 F 72 16 115/70 97
11/14/23 07:00 11/14/23 07:00 11/14/23 07:00 11/14/23 07:00 11/14/23 07:00
I&O
11/13/23 11/14/23 11/15/23
06:59 06:59 06:59
Intake Total 1260 / 1260 2059
Balance 1260 / 1260 2059
--- NOTE | 2023-11-14 13:14 | CM ---
Addendum entered by Sundeep Wood 11/14/23 14:32:
superintendent institution time 16:45.
Original Note:
CM following re: discharge planning.
Reviewed pt's chart, spoke to pt's legal guardian Justin Diaz a few times to update on discharge plan progress.
According to MD pt is medically stable top be discharged. Pt's legal guardian is aware and he stated that pt cannot return back to [facility] under any circumstance.
CM spoke to director post Dorothy from [facility] and she asked 5 minutes to review pt's case with their DON. No phone calls returned back. CM tried many times to call Dorothy back and she was not available and no ability to leave a
message.
CM left a few messages to marketing communications coordinator Marely from [facility] with no calls back.
CM spoke to [facility] admissions liaison Shauna, discussed pt's case in details and after she took some time to review pt's referral with their team, Shauna confirmed that pt is accepted for admission to [facility]
today.
CM spoke to pt's legal guardian and he expressed his very positive feelings regarding pt is accepted by [facility] and he is requested to get pt there today.
Discharge order noted.
UC to arrange transportation BLS. [facility]NC completed and left with [facility].
Both pt, her legal guardian, RN and [facility] admissions liaison Shauna are aware of pt's discharge and discharge time will be updated.
[facility] nursing report: [phone] or [phone]
Please fax discharge instructions to [phone]
D/C plan: [facility]
[2023-11-14] MEDS: MYLICON 80 MG PO (13:33)
--- NOTE | 2023-11-14 13:33 | W.DCSUMMARY ---
Discharge Summary
Discharge Data
Date of Admission: 11/03/23
Date of Discharge: 11/14/23
-
Pending Results: No
Hospital Course
53-year-old female with past medical history of seizures, CVA with baseline aphasia, anxiety, depression, right sided hemiparesis, HIV, MDD, history of pacemaker, migraine, hypertension, hyperlipidemia came to the hospital after being found down.
There was a concern of patient having a CVA on admission the patient received TNK. Serial CT scans were negative for any acute findings. Patient also had a EEG did not did not show any signs of seizure. Patient hospital course was complicated by
periods of agitation where patient was put on restraints and required IV sedation. Over time her mentation tends to improve and she was able to come back to her baseline mental status. She does have baseline right hemiparesis and aphasia. Urine
drug screen was also positive for THC. Patient symptoms were likely thought were related to recent vaping event at her facility. Patient does have a guardian who did not wanted patient to go back to her previous living facility and wanted her to
have new retirement facility placement. She also had some microscopic hematuria for which he was instructed to follow-up with urology outpatient. Once patient had retirement facility placement, she was then discharged with instructions
to follow-up with all her physicians outpatient.
Discharge Plan
-
Patient Disposition: [facility]NF
Discharge Diagnosis/Procedures: Suspicion of CVA/TIA status post TNK
Passing out episode suspect secondary to recent vaping event
Anxiety with behavioral disturbances
History of CVA with baseline aphasia
Microscopic hematuria
Diet: As tolerated
Activity: As tolerated
Driving Restrictions: No driving
Bathing Restrictions: None
Activity Restrictions/Additional Instructions:
Need outpatient physician to manage HIV.
Referrals:
Donato Childs MD [Active] -
Elpidio Mathis, [Family Provider] - in less than 1 week
Dante Griffith MD [Active] -
Prescriptions:
New
thiamine HCl (vitamin B1) 100 mg Tablet
100 mg PO DAILY Qty: 0 0RF
simethicone 80 mg Tablet,Chewable
80 mg PO TIDPRN PRN (Reason: gas pain) Qty: 0 0RF
Continued
multivitamin Tablet
1 tab PO DAILY
acetaminophen 325 mg Tablet
650 mg PO Q6HPRN MDD 3000 mg PRN (Reason: mild pain/temp>100.4)
cetirizine 10 mg Tablet
10 mg PO DAILY
hydralazine 25 mg Tablet
25 mg PO DAILYPRN PRN (Reason: sbp>160 and/or dbp>100)
Patient Comments:
11/03/2023, give for sbp>160 and/or dbp>100 -- do not give with other B/P meds.
aspirin 81 mg Tablet,Delayed Release (Dr/Ec)
81 mg PO DAILY
baclofen 20 mg Tablet
20 mg PO TID
magnesium hydroxide [Milk of Magnesia] 400 mg/5 mL Suspension
30 ml PO DAILY PRN (Reason: if no BM x 3 days)
bisacodyl [Dulcolax (bisacodyl)] 10 mg Suppository
10 mg ID DAILYPRN PRN (Reason: if MOM ineffective)
lisinopril 10 mg Tablet
10 mg PO DAILY
Hold Instructions: Hold until follow-up with your primary care doctor
Fleet Enema 19-7 gram/118 mL Enema
118 ml ID DAILY PRN (Reason: if dulcolax supp ineffective)
Excedrin Migraine 250-250-65 mg Tablet
2 tab PO DAILYPRN PRN (Reason: severe headache)
omeprazole 20 mg Tablet,Delayed Release (Dr/Ec)
20 mg PO DAILY
Biktarvy 50-200-25 mg Tablet
1 tab PO DAILY
medroxyprogesterone 150 mg/mL Suspension
150 mg IM [id number]
Patient Comments:
11/03/2023, Q90D.
metoprolol succinate 25 mg tablet extended release 24 hr
25 mg PO BID
Patient Comments:
11/03/2023, hold if systolic less than 100 or HR less than 60.
levetiracetam [Keppra] 1,000 mg tablet
1,000 mg PO BID Qty: 60 0RF
Nurtec ODT 75 mg Tablet,Disintegrating
75 mg PO Q48H
atorvastatin 40 mg tablet
40 mg PO QPM
prochlorperazine maleate 10 mg Tablet
10 mg PO Q1H MDD 20mg/48hrs PRN (Reason: headache)
Patient Comments:
11/03/2023, 1 tablet at start of headache, may repeat in 1 hour if not resolved.
gabapentin 300 mg Capsule
300 mg PO BID
lacosamide 150 mg Tablet
150 mg PO BID
Debrox 6.5 % Drops
5 drp RIGHT EAR BID
escitalopram oxalate [Lexapro] 20 mg Tablet
20 mg PO DAILY
lorazepam 0.5 mg tablet
0.5 mg PO [id number] PRN (Reason: increased anxiety) Qty: 6 0RF
clonazepam 2 mg Tablet,Disintegrating
5 mg PO PRN MDD 5 mg PRN (Reason: seizure) Qty: 6 0RF
Discontinued
cyclobenzaprine 10 mg Tablet
10 mg PO BID
clonazepam 0.5 mg Tablet,Disintegrating
0.5 mg PO PRN MDD 5 mg PRN (Reason: seizure)
Discharge Orders:
Discharge Patient (As Directed); Ordered 11/14/23
Ordered By: Caleb Barth
Care Plan Goals
Care Plan Goals:
Problem: Pain
Goal: Experience adequate pain control and/or relief of pain.
Instructions: Use medication for pain management as prescribed by your physician. Use non-medication pain management strategies/techniques as directed by your health care team.
Discharge Date and Time
Discharge Date/Time: 11/14/23 17:23
Print Language: [id number]
[2023-11-14 16:18] VITALS: BP 125/83
== END 2023-11-14 17:23 | DRG 64 ==
LOC: 3 WEST ACU 18:03
PROVIDERS: Hospitalist; Nurse Practitioner Primary Care; Student in an Organized Health Care Education/Training Program; ADMITTING PHYSICIAN Internal Medicine; ATTENDING PHYSICIAN Internal Medicine; CONSULT PHYSICIAN Internal Medicine Critical Care Medicine; CONSULT PHYSICIAN Internal Medicine Infectious Disease; CONSULT PHYSICIAN Student in an Organized Health Care Education/Training Program; EMERGENCY PHYSICIAN Emergency Medicine; FAMILY PHYSICIAN Internal Medicine
DX: I63.9 Cerebral infarction, unspecified (principal); G92.8 Other toxic encephalopathy; I69.351 Hemiplegia and hemiparesis following cerebral infarction affecting right dominant side; F33.9 Major depressive disorder, recurrent, unspecified; Z21 Asymptomatic human immunodeficiency virus [HIV] infection status; G43.909 Migraine, unspecified, not intractable, without status migrainosus; E78.5 Hyperlipidemia, unspecified; G89.4 Chronic pain syndrome; D50.9 Iron deficiency anemia, unspecified; I10 Essential (primary) hypertension; I69.320 Aphasia following cerebral infarction; Z95.0 Presence of cardiac pacemaker; Z79.82 Long term (current) use of aspirin
CPT/HCPCS: 36680; 70450; 70496; 70498; 71045; 80048; 80053; 80061; 80306; 81003; 81015; 82077; 82550; 82805; 82962; 83036; 83735; 84443; 84703; 85025; 85027; 85576; 85610; 85730; 87040; 87070; 87086; 87641; 92523; 92526; 92610; 93005; 95816; 96374; 97112; 97116; 97163; 97167; 97530; 97535; 99291; C9254; J2358; J3101; Q9967